=== PATIENT | male | born 1975 | race Two or more races ===

== ENCOUNTER 2023-04-14 11:35 | Outpatient (REF) | payer MEDICAID, SELFPAY ==
[2023-04-15 07:16] LABS: HIV AB/AG Nonreactive (Nonreactive); HIV Num 1 0.05 S/CO (0.00-0.99); ~HepC Num1 0.11 S/CO (0.00-0.79); ~Hepatitis C Antibody Nonreactive (Nonreactive)
[2023-04-16 09:13] LABS: RPR Rapid Plasma Reagin NON-REACTIVE (NON-REACTIVE)
== END 2023-04-14 11:36 | disposition home or self-care (01) ==
LOC: HO.HHCL 11:35
PROVIDERS: Visit Provider Internal Medicine
DX: E11.65 Type 2 diabetes mellitus with hyperglycemia (principal); F41.8 Other specified anxiety disorders
CPT/HCPCS: 36415; 80048; 85025; 86592; 86803; 87389

== ENCOUNTER 2023-04-15 09:39 | Outpatient (REF) | payer MEDICAID, SELFPAY ==
[2023-04-15 12:45] LABS: Creatinine Urine 317.39 mg/dL
[2023-04-15 13:18] LABS: CT PCR NOT DETECTED (Not Detect.); NG PCR NOT DETECTED (Not Detect.)
== END 2023-04-15 09:40 | disposition home or self-care (01) ==
LOC: HO.HHCL 09:39
PROVIDERS: Visit Provider Internal Medicine
DX: F41.8 Other specified anxiety disorders (principal); E11.65 Type 2 diabetes mellitus with hyperglycemia
CPT/HCPCS: 0353U; 82043; 82570

== ENCOUNTER 2024-07-09 12:14 | Outpatient (REF) | payer OTHER, SELFPAY ==
[2024-07-09 13:52] LABS: Creatinine Urine 143.39 mg/dL; Microalbum/Creatinine Ratio Ur 12.5 ug/mg cr (<30)
[2024-07-09 14:07] LABS: Alanine Aminotransferase 20 U/L (0-40); Albumin Level 4.4 g/dL (3.5-5.0); Alkaline Phosphatase 69 U/L (39-117); Anion Gap 11 (12-20); Aspartate Amino Transferase 20 U/L (5-37); Bilirubin Total 0.5 mg/dL (0.0-1.0); Blood Urea Nitrogen 11 mg/dL (9-16); Calcium 9.6 mg/dL (8.4-10.2); Carbon Dioxide 27 mmol/L (22-29); Chloride 102 mmol/L (96-108); Cholesterol 258 mg/dL (<200); Estimated Glomerular Filt Rate > 60; Glucose Random 208 mg/dL (60-115); HDL Cholesterol 37 mg/dL (>40); LDL Cholesterol Calculated 147 mg/dL (<100); Potassium 4.3 mmol/L (3.3-5.1); Sodium 136 mmol/L (135-145); Total Protein 7.6 g/dL (6.5-8.0); Triglycerides 371 mg/dL (<150)
--- OUTSIDE RECORDS SUMMARY | 2024-07-09 14:11 | XMS_ITS | Encounter Summary ---
Author Organization [employer] Address [address] [place] [address] [facility] [place] [address] Care Team Providers Care Roguer Name Role Phone Jade Laguerre MD Primary Care Provide r Reason for Referral * Medications - Closed Specialty Diagnoses / Procedures Referred By Yg hunter Referred To Contact Diagnoses Type 2 diabetes mellitus with hyperglycemia, without long-term current use of insulin ([facility]) Jade Laguerre MD [address] [place] [phone] Phone: tel: fax: Referral ID Status Reason Start Date Expiration Date Visits Re quested Visits Authorized [id number] Closed 1 1 * Consultation (Routine) - Pending Review Specialty Diagnoses / Procedures Referred By Yg hunter Referred To Contact Podiatry Diagnoses Type 2 diabetes mellitus with hyperglycemia, without long-term current use of insulin ([facility]) Jade Laguerre MD [address] [place] [id number] Phone: tel: fax: Referral ID Status Reason Start Date Expiration Date Visits Requested Visits Authorized [id number] Pending Review Specialty Services Required 07/09/2024 07/09/2025 1 1 * Consultation (Routine) - Authorized Specialty Diagnoses / Procedures Referred By Yg t Referred To Contact Optometry Diagnoses Type 2 diabetes mellitus with hyperglycemia, without long-term current use of insulin (CMS/HCC) Jade Laguerre MD [address] [place] [address] Phone: tel: fax: [facility] [address] [place] [address] Phone: tel: fax: Referral ID Status Reason Start Date Expiration Date Visits Requested Visits Authorized [id number] Authorized Consult and Treat 07/09/2024 07/09/2025 1 1 Reason for Visit * Reason Comments Diabetes Encounter Details Date Type Department Care Team ([facility] st Contact Info) Description 07/09/2024 11:15 AM EDT Office Visit [facility] [address] [place] [address] Jade Laguerre MD [address] [place] [address] Type 2 diabetes mellitus with hyperglycemia, without long-term current use of insulin (CMS/HCC) (Primary Dx); Insomnia, unspecified type; Dyslipidemia Social History Tobacco Use Types Packs/Day Years Used Date Smoking Tobacco: Never Smokeless Tobacco: Never Tobacco Cessation:Counseling Given: Not Answered Depression Answer Date Recorded Patient Health Questionnaire-9 Score 21 04/14/2023 Patient Health Questionnaire-9 Score 21 04/14/2023 Last PHQ-9: Questionnaire Data Not on file 0 04/14/2023 Housing Stability Answer Date Recorded What is your housing situation today? I do not have housing (Staying with others, in a hotel, in a jail, living outside on the street, on a beach, in a car, or in a park 07/01/[address] you li ve. Do you have problems with any of the following? None of the above 07/01/2024 Food Insecurity Answer Date Recorded Within the past 12 months, y ou worried that your food would run out before you got money to buy more: Never True 07/01/2024 Within the past 12 months,th e food you bought just didn't last and you didn't have enough money to get more: Never True Transportation Answer Date Recorded In the past 12 months, has l ack of transportation kept you from medical appts, meetings, work or from getting things needed for daily living? No 07/01/2024 Utilities Answer Date Recorded In the past 12 months, has t he electric, gas, oil or water company threatened to shut off services in your home? No 07/01/2024 Depression Answer Date Recorded Patient Health Questionnaire-2 Score 4 04/14/2023 Internet Access Answer Date Recorded Internet Access Q1 Yes 07/01/2024 Internet Access Q2 Not on file 07/01/2024 Sex and Gender Information Value Date Recorded Sex Assigned at Male 02/04/2022 10:39 AM EDT Legal Sex Male 10:39 AM EDT Gender Identity Male 02/04/2022 10:39 AM EDT Sexual Orientation Straight 02/04/2022 10 :39 AM EDT documented as of this encounter Last Filed Vital Signs Vital Sign Reading Time Taken Comments Blood Pressure 131/81 07/09/2024 11:43 AM EDT Pulse 76 07/09/2024 11:43 AM EDT Temperature 36.6 ??C (97.8 ??F) 07/09/2024 11:43 AM E DT Respiratory Rate 16 07/09/2024 11:43 AM EDT Oxygen Saturation 98% 07/09/2024 11:43 AM EDT Inhaled Oxygen Concentration - - Weight 107 kg (235 lb) 07/09/2024 11:43 AM EDT Height 181.6 cm (5' 11.5 ) 07/09/2024 11:43 AM E DT Body Mass Index 32.32 07/09/2024 11:43 AM EDT documented in this encounter Plan of Treatment Scheduled Referrals Name Type Priority Associated Diagnoses Orde r Schedule Referral to [facility] Outpatient Referral Routine Type 2 diabetes mellitus with hyperglycemia, without long-term current use of insulin ([facility]) Expected: 07/09/2024 (Approximate), Expires: 07/09/2025 Referral to Podiatry Outpatient Referral Routine Type 2 diabetes mellitus with hyperglycemia, without long-term current use of insulin ([facility]) Expected: 07/09/2024 (Approximate), Expires: 07/09/2025 documented as of this encounter Procedures Procedure Name Priority Date/Time Associated Diagnosis Comments ALBUMIN, RANDOM URINE W/CREATININE Routine 07/09/2024 12:20 PM EDT Type 2 diabetes mellitus with hyperglycemia, without long-term current use of insulin ([facility]) POCT GLYCATED HEMOGLOBIN, TOTAL Routine 07/09/2024 12:05 PM EDT Type 2 diabetes mellitus with hyperglycemia, without long-term current use of insulin ([facility]) POCT GLUCOSE Routine 07/09/2024 12:05 PM EDT Type 2 diabetes mellitus with hyperglycemia, without long-term current use of insulin ([facility]) LIPID PANEL, STANDARD Routine 07/09/2024 11:20 AM EDT Type 2 diabetes mellitus with hyperglycemia, without long-term current use of insulin ([facility]) COMPREHENSIVE METABOLIC PANEL Routine 07/09/2024 11:20 AM EDT Type 2 diabetes mellitus with hyperglycemia, without long-term current use of insulin ([facility]) documented in this encounter Results * Albumin, Random Urine W/Creatinine (07/09/2024 12:20 PM EDT) Creatinine, Urine 143.39 mg/dL [facility] Microalbumin Urine 18.0 mg/L [facility] Microalbum Creatinine Ratio Ur 12.5 <30 ug/mg cr [facility] Comment:Albumin/Creatinine R atio Reference Ranges: Normal: < 30 ug/mg creatinine Microalbuminuria: 30 - 300 ug/mg creatinineClinical Albuminuria: > 300 ug/mg creatinine Urine (Urine, Random) 07/09/2024 12:20 PM EDT 07/09/2024 1:03 PM EDT us Jade Gonzalez MD LAB URINE ORDERABLES Final Result [facility] [address] [place] [phone] * (ABNORMAL) POCT HGB A1C (07/09/2024 12:05 PM EDT) Hemoglobin A1C 10.8(A) 4.0 - 6.0 % QC Media Lot # [id number] Lot# Expiration Date Blood 07/09/2024 12:0 5 PM EDT Jade Gonzalez MD POINT OF CARE TEST EN TER/EDIT ORDERABLES Final Result * POCT Glucose (07/09/2024 12:05 PM EDT) Pathologist [facility] [place] Glucose Blood, POC 185 60 - 200 mg/dL QC Media Lot # [id number] Lot# Expiration Date Blood Capillary blood specimen / Unknown 07/09/2024 12:05 PM EDT Jade Gonzalez MD POINT OF CARE TEST EN TER/EDIT ORDERABLES Final Result * (ABNORMAL) Comprehensive Metabolic Panel (07/09/2024 11:20 AM EDT) Pathologist [facility] [place] Sodium 136 135 - 145 mmol/L [facility] Potassium 4.3 3.3 - 5.1 mmol/L [facility] Chloride 102 96 - 108 mmol/L [facility] Carbon Dioxide 27 22 - 29 mmol/L [facility] Anion Gap 11(L) 12 - 20 [facility] Urea Nitrogen (BUN) 11 9 - 16 mg/dL [facility] Creatinine, Serum 0.79 0.5 - 1.4 mg/dL [facility] Estimated Glomerular Filt Rate >60 [facility] Comment:Chronic Kidney Disea se: Estimated GFR < 60 mL/min/[id number] Kidney Disease: Estimated GFR < 15 mL/min/1.73m2 Glucose 208(H) 60 - 115 mg/dL [facility] Calcium 9.6 8.4 - 10.2 mg/dL [facility] Bilirubin, Total 0.5 0.0 - 1.0 mg/dL [facility] Aspartate Amino Transferase 20 5 - 37 U/L [facility] Alanine Aminotransferase 20 0 - 40 U/L [facility] Total Protein 7.6 6.5 - 8.0 g/dL [facility] Albumin Level 4.4 3.5 - 5.0 g/dL [facility] Alkaline Phosphatase 69 39 - 117 U/L [facility] Blood Venous blood specimen / Unknown 07/09/2024 11:20 AM EDT 07/09/2024 1:21 PM EDT us Jade Gonzalez MD LAB BLOOD ORDERABLES Final Result [facility] [address] [place] [phone] * (ABNORMAL) Lipid Panel, Standard (07/09/2024 11:20 AM EDT) Triglycerides 371(H) <150 mg/dL [facility] Comment:Desirable Triglyceri de: less than 150 mg/dLBorderline High Triglyceride 150-199 mg/dLHigh Triglyceride: 200-499 mg/dLVery High Triglyceride: greater than or equal to 5OO mg/dL Cholesterol 258(H) <200 mg/dL [facility] Comment:Desirable Cholestero l: less than 200 mg/dLBorderline High Cholesterol: 200-239 mg/dLHigh Cholesterol: greater than 239 mg/dL LDL Cholesterol Calculated 147(H) <100 mg/dL [facility] Comment:Desirable LDL: less than 100 mg/dLNear Optimal/Above Optimal LDL: 110- 129 mg/dLBorderline High LDL: 130-159 mg/dLHigh LDL: 160-189 mg/dLVery High LDL: greater than or equal to 190 mg/dL HDL Cholesterol 37(L) >40 mg/dL [facility] Comment:Desirable HDL: great er than 40 mg/dL Note: This HDL assay may give artificially low results in patients with liver disease. Blood Venous blood specimen / Unknown 07/09/2024 11:20 AM EDT 07/09/2024 1:21 PM EDT Jade Gonzalez MD LAB BLOOD ORDERABLES Final Result [facility] [address] [place] [phone] documented in this encounter Visit Diagnoses Diagnosis Type 2 diabetes mellitus with hyperglycemia, without long-term current use of insulin ([facility])- Primary Insomnia, unspecified type Dyslipidemia Other and unspecified hyperlipidemia documented in this encounter Additional Health Concerns Assessment Noted Time PHQ-9 Depression Total Score: 21 024 1:26 PM EST documented as of this encounter Care Teams Roguer Relationship Specialty Start Date End Date Jade Laguerre MD [address] [place] [phone] PCP - General Internal Medicine 05/27/24 documented as of this encounter
--- OUTSIDE RECORDS SUMMARY | 2024-07-09 14:11 | XMS_ITS | Encounter Summary ---
Author Organization [employer] Address [address] [place] [address] Care Team Providers Care Social Sciences Instructor Name Role Phone Jade Laguerre MD Primary Care Provide r Encounter Details Date Type Department Care Team (Latest Contact Info) Description 07/09/2024 Travel Social History Tobacco Use Types Packs/Day Years Used Date Smoking Tobacco: Never Smokeless Tobacco: Never Depression Answer Date Recorded Patient Health Questionnaire-9 Score 21 04/14/2023 Patient Health Questionnaire-9 Score 21 04/14/2023 Last PHQ-9: Questionnaire Data Not on file 0 04/14/2023 Housing Stability Answer Date Recorded What is your housing situation today? I do not have housing (Staying with others, in a hotel, in a [place] [facility], living outside on the street, on a [...] AM EDT documented as of this encounter Plan of Treatment Not on file documented as of this encounter Visit Diagnoses Not on filedocumented in this encounter Additional Health Concerns Assessment Noted Time PHQ-9 Depression Total Score: 21 024 1:26 PM EST documented as of this encounter Care Teams Social Sciences Instructor Relationship Specialty Start Date End Date Jade Laguerre MD [address] [place] [address] PCP - General Internal Medicine 05/27/24 documented as of this encounter
--- OUTSIDE RECORDS SUMMARY | 2024-07-09 14:12 | XMS_ITS | Clinical Summary ---
Author Organization [employer] Address [address] [place] [address] [address] [place] [address] Care Team Providers Care University Professor Name Role Phone Jade Laguerre MD Primary Care Provide r Allergies No known active allergies Medications * This document contains information received from the source organization and may not represent a complete record from that organization. emtricitabine-ten ofovir AF (Descovy) 200-25 MG tabletIndications :On pre-exposure prophylaxis for HIV Take 1 tablet by mouth in the morning. 30 tablet 2 03/27/20 23 Active gabapentin (Neurontin) 300 MG capsuleIndication s:Diabetic polyneuropathy associated with type 2 diabetes mellitus (CMS/HCC) Take 1 capsule (300 mg) by mouth 3 times daily. 90 capsule 11 04/14/19 24 Active traZODone (Desyrel) 100 MG tabletIndications :Mixed anxiety and depressive disorder TAKE 1 TABLET(100 MG) BY MOUTH AT BEDTIME 30 tablet 1 05/22/19 24 Active atorvastatin (Lipitor) 40 MG tabletIndications :Dyslipidemia Take 1 tablet (40 mg) by mouth Once per day. 90 tablet 07/10/19 25 Active gabapentin (Neurontin) 800 MG tabletIndications :Type 2 diabetes mellitus with hyperglycemia, without long-term current use of insulin (CMS/HCC) Take 1 tablet (800 mg) by mouth at bedtime. 30 tablet 2 07/10/19 25 026 Active metFORMIN (Glucophage) 1000 MG tabletIndications :Type 2 diabetes mellitus with hyperglycemia, without long-term current use of insulin (CMS/HCC) take 1 tablet by oral route 2 times every day with morning and evening meals 180 tablet 07/10/19 25 Active traZODone (Desyrel) 50 MG tabletIndications :Insomnia, unspecified type Take 1 tablet (50 mg) by mouth at bedtime. 30 tablet 2 07/10/19 25 025 Active Dulaglutide 0.75 MG/0.5ML solution auto-injectorIndi cations:Type 2 diabetes mellitus with hyperglycemia, without long-term current use of insulin (CMS/HCC) Inject 0.75 mg under the skin 1 (one) time per week. 2 mL 3 07/10/19 25 Active FREESTYLE LITE test stripIndications: Type 2 diabetes mellitus with hyperglycemia, without long-term current use of insulin (CMS/HCC) Use to test blood sugar 1 times daily 100 each 12 07/10/19 25 026 Active Lancets miscIndications:T ype 2 diabetes mellitus with hyperglycemia, without long-term current use of insulin (CMS/HCC) Use to test blood sugar 1 times daily 100 each 07/10/19 25 Active Alcohol Swabs 70 % padsIndications:T ype 2 diabetes mellitus with hyperglycemia, without long-term current use of insulin (CMS/HCC) Use to test blood sugar 1 times daily 100 each 07/10/19 25 Active Blood Glucose Monitoring Suppl (FreeStyle [place] Lite) w/Device kitIndications:Ty pe 2 diabetes mellitus with hyperglycemia, without long-term current use of insulin (CMS/HCC) Use to test blood sugar 1 times daily 1 kit 07/10/19 25 Active atorvastatin (Lipitor) 40 MG tablet Take 1 tablet (40 mg) by mouth in the morning. 90 tablet 07/04/19 23 025 Discontinued(Re order (will not trigger notification to Pharmacy)) metFORMIN (Glucophage) 1000 MG tabletIndications :Type 2 diabetes mellitus with hyperglycemia, without long-term current use of insulin (CMS/HCC) take 1 tablet by oral route 2 times every day with morning and evening meals 180 tablet 04/14/19 24 025 Discontinued(Re order (will not trigger notification to Pharmacy)) dulaglutide (Trulicity) 0.75 MG/0.5ML solution pen-injectorIndic ations:Type 2 diabetes mellitus with hyperglycemia, without long-term current use of insulin (CMS/HCC) Inject 0.75 mg under the skin 1 (one) time per week. 4 each 11 04/14/19 24 025 Discontinued(Re order (will not trigger notification to Pharmacy)) gabapentin (Neurontin) 800 MG tabletIndications :Type 2 diabetes mellitus with hyperglycemia, without long-term current use of insulin ([facility]) Take 1 tablet (800 mg) by mouth at bedtime. 30 tablet 2 07/10/19 25 025 Discontinued traZODone (Desyrel) 50 MG tabletIndications :Insomnia, unspecified type Take 1 tablet (50 mg) by mouth at bedtime. 30 tablet 2 07/10/19 25 025 Discontinued metFORMIN (Glucophage) 1000 MG tabletIndications :Type 2 diabetes mellitus with hyperglycemia, without long-term current use of insulin ([facility]) take 1 tablet by oral route 2 times every day with morning and evening meals 180 tablet 07/10/19 25 025 Discontinued atorvastatin (Lipitor) 40 MG tabletIndications :Dyslipidemia Take 1 tablet (40 mg) by mouth Once per day. 90 tablet 07/10/19 025 Discontinued Active Problems Problem Noted Date Diagnosed Date Dyslipidemia 07/09/2024 Colon cancer screening 04/14/2023 Pain in right testicle 04/14/2023 Assessment & Plan (04/14/2023 12:17 PM EST): US ordered after result I will refer him to urology Diabetic polyneuropathy asso ciated with type 2 diabetes mellitus 04/14/2023 Homeless 04/14/2023 Type 2 diabetes mellitus 08/12/2022 Assessment & Plan (04/14/2023 12:18 PM EST): - Lab Results Component Value Date HGBA1C 12.9 (A) 04/14/2023 HGBA1C 8.0 (H) 08/07/2021 - Lab Results Component Value Date MICROALBUR 1.3 08/07/2021 - - Diabetic eye exam:pending - Diabetic foot exam:pending - lifestyle modifications counseling - metfromin 1000mg BID and trulicity 0.75mg weekly Trigger middle finger of right hand 08/12/2022 Sebaceous cyst 08/12/2022 Mixed anxiety and depressive disorder 08/12/2022 Assessment & Plan (04/14/2023 12:19 PM EST): Counseling done I will start trazodone 100mg at bed time BHN called Chronic low back pain 08/12/2022 Insomnia 08/12/2022 Encounters Date Type Department Care Team Description 07/09/2024 11:15 AM EDT Office Visit [facility] [address] [place] [phone] Jade Laguerre MD Type 2 diabetes mellitus with hyperglycemia, without long-term current use of insulin ([facility]) (Primary Dx); Insomnia, unspecified type; Dyslipidemia 07/09/2024 Travel 07/01/2024 Patient Outreach [facility] [address] [place] [phone] Jade Laguerre MD Care Coordination (CHW outreach for SDOH housing search-referral completed ) 07/01/2024 Patient Outreach [facility] [address] [place] [phone] Jade Laguerre MD Pre-visit Planning (SDOH screening negative and tobacco screening negative) 06/18/2024 Population Health Risk Score [facility] () Department [address] [place] [phone] Provider, Population Health Generic from Last 3 Months Immunizations Name Administration Dates Next Due Influenza injectable quadrivalent preservative f ree 04/14/2023 Social History Tobacco Use Types Packs/Day Years [...] with others, in a hotel, in a alf, living outside on the street, on a [...] Orientation Straight 02/04/2022 10 :39 AM EDT Last Filed Vital Signs Vital Sign Reading [...] Mass Index 32.32 07/09/2024 11:43 AM EDT Plan of Treatment Health Maintenance Due Date Last Done Comments CT Colonography 1977 Colonoscopy 1977 Colorectal Cancer Screening 1977 FIT DNA/Cologuard 1977 FIT 1977 FOBT 1977 Sigmoidoscopy 1977 Diabetes: Foot Exam 09/25/1987 Eye Exam 09/25/1987 Alcohol/Substance Use Screening 1989 Family Planning (PISQ) 1992 Hepatitis B Vaccines (1 of 3 - 19+ 3-dose series) 1996 Pneumococcal Vaccine: Pediatrics (0 to 5 Years) and At-Risk Patients (6 to 49) Years) (1 of 2 - PCV) 1996 Lipid Panel 08/07/2022 07/09/2024, 08/07/2021 Depression Monitoring (PHQ-9) 10/13/2023, 04/14/2023 COVID-19 Vaccine (2 - 2023-2 5 season) 2023 04/08/2021 Influenza Vaccine (#1) 2023 , 01/02/2022, 04/08/2021 Depression Screening 04/14/2024 04/14/2023, 04/14/2023 Diabetes: Urine Protein Screening 04/15/2024 07/09/2024, 04/15/2023, 08/07/2021 Diabetes: Hemoglobin A1C 10/08/2024 025, 04/14/2023, 08/07/2021 SDOH Screening 07/01/2025 07/01/2024 Tobacco Screening 07/09/2025 07/09/2024 Zoster Vaccines (1 of 2) 09/25/2027 DTaP/Tdap/Td Vaccines (2 - T d or Tdap) 01/03/2032 01/02/2022 RSV Patients and Patients Aged 60 years or older (1 - 1-dose 75+ series) 2052 HIV Screening Completed 04/14/2023, 01/02/2022, 08/07/2021 Hepatitis C Screening Completed 04/14/2023 , 01/02/2022, 08/07/2021 HIB Vaccines Aged Out No longer eligi ble based on patient's age to complete this topic HPV Vaccines Aged Out No longer eligi ble based on patient's age to complete this topic Hepatitis A Vaccines Aged Out No long er eligible based on patient's age to complete this topic IPV Vaccines Aged Out No longer eligi ble based on patient's age to complete this topic Meningococcal Vaccine Aged Out No maureen shannan eligible based on patient's age to complete this topic RSV under 20 months Aged Out No longe r eligible based on patient's age to complete this topic Rotavirus Vaccines Aged Out No longer eligible based on patient's age to complete this topic Procedures Procedure Name Priority Date/Time Associated Diagnosis Comments ALBUMIN, RANDOM URINE W/CREATININE Routine 07/09/2024 12:20 PM EDT Type 2 diabetes mellitus with hyperglycemia, without long-term current use of insulin (CMS/HCC) POCT GLYCATED HEMOGLOBIN, TOTAL Routine 07/09/2024 12:05 PM EDT Type 2 diabetes mellitus with hyperglycemia, without long-term current use of insulin (CMS/HCC) POCT GLUCOSE Routine 07/09/2024 12:05 PM EDT Type 2 diabetes mellitus with hyperglycemia, without long-term current use of insulin (CMS/[facility]) COMPREHENSIVE METABOLIC PANEL Routine 07/09/2024 11:20 AM EDT Type 2 diabetes mellitus with hyperglycemia, without long-term current use of insulin ([facility]) LIPID PANEL, STANDARD Routine 07/09/2024 11:20 AM EDT Type 2 diabetes mellitus with hyperglycemia, without long-term current use of insulin ([facility]) HEPATITIS C AB W/REFL TO HCV RNA, QN, PCR Routine 04/14/2023 11:36 AM EST Mixed anxiety and depressive disorder HIV 1/2 ANTIGEN/ANTIBODY, FOURTH GENERATION W/RFL Routine 04/14/2023 11:36 AM EST Mixed anxiety and depressive disorder from Last 3 Months or Most Recently Relevant to Health Maintenance Results * Albumin, Random Urine W/Creatinine (07/09/2024 12:20 PM EDT) Creatinine, Urine 143.39 mg/dL [facility] Microalbumin Urine 18.0 mg/L [facility] Microalbum Creatinine Ratio Ur 12.5 <30 ug/mg cr [facility] Comment:Albumin/Creatinine R atio Reference Ranges: Normal: < 30 ug/mg creatinine Microalbuminuria: 30 - 300 ug/mg creatinineClinical Albuminuria: > 300 ug/mg creatinine Urine (Urine, Random) 07/09/2024 12:20 PM EDT 07/09/2024 1:03 PM EDT Jade Gonzalez MD LAB URINE ORDERABLES Final Result [facility] [address] [place] [phone] * (ABNORMAL) POCT HGB A1C (07/09/2024 12:05 PM EDT) Hemoglobin A1C 10.8(A) 4.0 - 6.0 % QC Media Lot # [id number] Lot# Expiration Date Blood 07/09/2024 12:0 5 PM EDT Jade Gonzalez MD POINT OF CARE TEST EN TER/EDIT ORDERABLES Final Result * POCT Glucose (07/09/2024 12:05 PM EDT) Glucose Blood, POC 185 60 - 200 mg/dL QC Media Lot # [id number] Lot# Expiration Date Blood Capillary blood specimen / Unknown 07/09/2024 12:05 PM EDT Jade Gonzalez MD POINT OF CARE TEST EN TER/EDIT ORDERABLES Final Result * (ABNORMAL) Lipid Panel, Standard (07/09/2024 11:20 AM EDT) Triglycerides 371(H) <150 mg/dL [facility] Comment:Desirable Triglyceri de: less than 150 mg/dLBorderline High Triglyceride 150-199 mg/dLHigh Triglyceride: 200-499 mg/dLVery High Triglyceride: greater than or equal to 5OO mg/dL Cholesterol 258(H) <200 mg/dL [facility] Comment:Desirable Cholestero l: less than 200 mg/dLBorderline High Cholesterol: 200-239 mg/dLHigh Cholesterol: greater than 239 mg/dL LDL Cholesterol Calculated 147(H) <100 mg/dL [facility] Comment:Desirable LDL: less than 100 mg/dLNear Optimal/Above Optimal LDL: 110- 129 mg/dLBorderline High LDL: 130-159 mg/dLHigh LDL: 160-189 mg/dLVery High LDL: greater than or equal to 190 mg/dL HDL Cholesterol 37(L) >40 mg/dL [facility] Comment:Desirable HDL: great er than 40 mg/dL Note: This HDL assay may give artificially low results in patients with liver disease. Blood Venous blood specimen / Unknown 07/09/2024 11:20 AM EDT 07/09/2024 1:21 PM EDT Jade Gonzalez MD LAB BLOOD ORDERABLES Final Result [facility] [address] [place] [phone] * (ABNORMAL) Comprehensive Metabolic Panel (07/09/2024 11:20 AM EDT) Sodium 136 135 - 145 mmol/L [facility] Potassium 4.3 3.3 - 5.1 mmol/L [facility] Chloride 102 96 - 108 mmol/L [facility] Carbon Dioxide 27 22 - 29 mmol/L [facility] Anion Gap 11(L) 12 - 20 [facility] Urea Nitrogen (BUN) 11 9 - 16 mg/dL [facility] Creatinine, Serum 0.79 0.5 - 1.4 mg/dL [facility] Estimated Glomerular Filt Rate >60 [facility] Comment:Chronic Kidney Disea se: Estimated GFR < 60 mL/min/[id number] Kidney Disease: Estimated GFR < 15 mL/min/1.73m2 Glucose 208(H) 60 - 115 mg/dL [facility] Calcium 9.6 8.4 - 10.2 mg/dL [facility] Bilirubin, Total 0.5 0.0 - 1.0 mg/dL [facility] Aspartate Amino Transferase 20 5 - 37 U/L [facility] Alanine Aminotransferase 20 0 - 40 U/L [facility] Total Protein 7.6 6.5 - 8.0 g/dL [facility] Albumin Level 4.4 3.5 - 5.0 g/dL [facility] Alkaline Phosphatase 69 39 - 117 U/L [facility] Blood Venous blood specimen / Unknown 07/09/2024 11:20 AM EDT 07/09/2024 1:21 PM EDT Jade Gonzalez MD LAB BLOOD ORDERABLES Final Result Performing Organization Address [facility] Co de Phone Number [facility] [address] [place] [phone] * Hepatitis C Antibody with Reflex to HCV, RNA, Quantitative, Real-Time PCR (04/14/2023 11:36 AM EST) Hepatitis C Antibody Nonreactive Nonreactive [facility] Comment:Antibodies to HCV no t detected; does not exclude early acuteHCV infection. Blood Venous blood specimen / Unknown 04/14/2023 11:36 AM EST 04/14/2023 1:34 PM EST us Jade Gonzalez MD LAB BLOOD ORDERABLES Final Result Performing Organization Address [facility] Co de Phone Number [facility] [address] [place] [phone] * HIV-1/2 Antigen and Antibodies, Fourth Generation, with Reflexes (04/14/2023 11:36 AM EST) HIV AB/AG Nonreactive Nonreactive [facility] Comment:HIV-1 p24 Ag and/or HIV-1/HIV-2 Ab not detected.A test result that is nonreactive does not exclude thepossibility of exposure to or infection with HIV-1 and/orHIV-2. Nonreactive results in this assay for individualswith prior exposure to HIV-1 and/or HIV-2 may be due toantigen and antibody levels that are below the limit ofdetection of this assay.The [employer] HIV Ag/Ab Combo assay result andsupplemental assay results should be interpreted inconjunction with the patient's clinical presentation,history and other laboratory results. If the results areinconsistent with clinical evidence, additional testing issuggested to confirm the result. Blood Venous blood specimen / Unknown 04/14/2023 11:36 AM EST 04/14/2023 1:34 PM EST us Jade Gonzalez MD LAB BLOOD ORDERABLES Final Result [facility] [address] [place] [phone] from Last 3 Months or Most Recently Relevant to Health Maintenance Insurance [facility] C3 [employer] Care Teams University Professor Relationship Specialty Start Date End Date Jade Laguerre MD [address] [place] [phone] PCP - General Internal Medicine 05/27/24
== END 2024-07-09 12:15 | disposition home or self-care (01) ==
LOC: HO.HHCL 12:14
PROVIDERS: Visit Provider Internal Medicine
DX: E11.65 Type 2 diabetes mellitus with hyperglycemia (principal)
CPT/HCPCS: 36415; 80053; 80061; 82043; 82570

== ENCOUNTER 2024-08-24 15:42 | Outpatient (REF) | payer OTHER, SELFPAY ==
--- NOTE | ~2024-08-24 | US_ITS ---
EXAMINATION: US SCROTUM HISTORY: PAIN RT TESTICLE. COMPARISON: There are no prior studies for comparison. FINDINGS: Real-time grayscale ultrasound imaging of the scrotum was performed. RIGHT TESTICLE: The right testis measures 4.4 x 2.5 x 3.0 cm and demonstrates normal homogeneous echotexture. No masses are seen. The right testis demonstrates normal color Doppler flow. RIGHT EPIDIDYMIS: Normal in size, shape, and vascularity. LEFT TESTICLE: The left testis measures 4.1 x 2.1 x 2.8 cm and demonstrates normal homogeneous echotexture. No masses are seen. The left testis demonstrates normal color Doppler flow. LEFT EPIDIDYMIS: Normal in size, shape, and vascularity. VARICOCELE: None. HYDROCELE: No significant hydrocele is seen. OTHER COMMENTS: None. US/US scrotum IMPRESSION: Unremarkable scrotal ultrasound. Electronically signed by: Barrett Toussaint MD 08/25/2024 07:14 AM EDT
--- OUTSIDE RECORDS SUMMARY | 2024-08-24 16:38 | XMS_ITS | Clinical Summary ---
Author Organization [employer] Address [address] [place] [address] 7[address] [place] [address] Care Team Providers Care Cosmetologist Apprentice Name Role Phone Jade Laguerre MD Primary Care Provide r Allergies No known active allergies Medications * This document contains information received from the source organization and may not represent a complete record from that organization. emtricitabine-tenof ovir AF (Descovy) 200-25 MG tabletIndications:O n pre-exposure prophylaxis for HIV Take 1 tablet by mouth in the morning. 30 tablet 2 3 Active gabapentin (Neurontin) 300 MG capsuleIndications: Diabetic polyneuropathy associated with type 2 diabetes mellitus (CMS/HCC) Take 1 capsule (300 mg) by mouth 3 times daily. 90 capsule 11 4 Active traZODone (Desyrel) 100 MG tabletIndications:M ixed anxiety and depressive disorder TAKE 1 TABLET(100 MG) BY MOUTH AT BEDTIME 30 tablet 1 4 Active atorvastatin (Lipitor) 40 MG tabletIndications:D yslipidemia Take 1 tablet (40 mg) by mouth Once per day. 90 tablet 5 Active gabapentin (Neurontin) 800 MG tabletIndications:T ype 2 diabetes mellitus with hyperglycemia, without long-term current use of insulin (CMS/HCC) Take 1 tablet (800 mg) by mouth at bedtime. 30 tablet 2 5 07/10/19 26 Active metFORMIN (Glucophage) 1000 MG tabletIndications:T ype 2 diabetes mellitus with hyperglycemia, without long-term current use of insulin (CMS/HCC) take 1 tablet by oral route 2 times every day with morning and evening meals 180 tablet 5 Active traZODone (Desyrel) 50 MG tabletIndications:I nsomnia, unspecified type Take 1 tablet (50 mg) by mouth at bedtime. 30 tablet 2 5 10/08/19 25 Active Dulaglutide 0.75 MG/0.5ML solution auto-injectorIndica tions:Type 2 diabetes mellitus with hyperglycemia, without long-term current use of insulin (CMS/[facility]) Inject 0.75 mg under the skin 1 (one) time per week. 2 mL 3 5 Active FREESTYLE LITE test stripIndications:Ty pe 2 diabetes mellitus with hyperglycemia, without long-term current use of insulin (CMS/HCC) Use to test blood sugar 1 times daily 100 each 12 5 07/10/19 26 Active Lancets miscIndications:Typ e 2 diabetes mellitus with hyperglycemia, without long-term current use of insulin (CMS/HCC) Use to test blood sugar 1 times daily 100 each 5 Active Alcohol Swabs 70 % padsIndications:Typ e 2 diabetes mellitus with hyperglycemia, without long-term current use of insulin (CMS/HCC) Use to test blood sugar 1 times daily 100 each 5 Active Blood Glucose Monitoring Suppl (FreeStyle Leota Lite) w/Device kitIndications:Type 2 diabetes mellitus with hyperglycemia, without long-term current use of insulin (CMS/HCC) Use to test blood sugar 1 times daily 1 kit 5 Active FREESTYLE LITE test stripIndications:Ty pe 2 diabetes mellitus with hyperglycemia, without long-term current use of insulin (CMS/HCC) Use to test blood sugar 1 times daily 100 each 12 5 07/22/19 26 Active Lancets miscIndications:Typ e 2 diabetes mellitus with hyperglycemia, without long-term current use of insulin (CMS/HCC) Use to test blood sugar 1 times daily 100 each 5 Active Alcohol Swabs 70 % padsIndications:Typ e 2 diabetes mellitus with hyperglycemia, without long-term current use of insulin (CMS/HCC) Use to test blood sugar 2 times daily 100 each 5 Active Blood Glucose Monitoring Suppl (FreeStyle Leota Lite) w/Device kitIndications:Type 2 diabetes mellitus with hyperglycemia, without long-term current use of insulin ([facility]) Use to test blood sugar 2 times daily 1 kit Active Active Problems Problem Noted Date Diagnosed Date Dyslipidemia 07/09/2024 Colon cancer screening 04/14/2023 Pain in right testicle 04/14/2023 Assessment & Plan (04/14/2023 12:17 PM EST): US ordered after result I will refer him to urology Diabetic polyneuropathy asso ciated with type 2 diabetes mellitus 04/14/2023 Homeless 04/14/2023 Type 2 diabetes mellitus 08/12/2022 Assessment & Plan (07/09/2024 2:16 PM EDT): Diabetes is: not controlled - Lab Results Component Value Date HGBA1C 10.8 (A) 07/09/2024 HGBA1C 12.9 (A) 04/14/2023 HGBA1C 8.0 (H) 08/07/2021 - Lab Results Component Value Date MICROALBUR 18.0 07/09/2024 CREATININE 0.79 07/09/2024 -Changes: I will prescribe again his metformin 1000 mg twice a day and I restarted patient on Trulicity 0.75 mg weekly - Diabetic eye exam: Referral done today - Diabetic foot exam: Referral done today - Continue lifestyle modifications I will prescribe for patient glucometer with supplies he tells me he does not have anything to check his glucose - Follow up: 3 months Assessment & Plan (04/14/2023 12:18 PM EST): [...] Chronic low back pain 08/12/2022 Insomnia 08/12/2022 Assessment & Plan (07/09/2024 2:15 PM EDT): Sleep hygiene counseling done I will restart patient on trazodone 50 mg at bedtime Encounters Date Type Department Care Team Description 08/06/2024 Telephone [facility] [address] [place], [place] [phone] Jade Laguerre MD [place] 07/28/2024 6:20 PM EDT Office Visit [facility] [address] [place] [address] [phone] Jameson Ordoñez MD SOB (shortness of breath) (Primary Dx) 07/21/2024 Orders Only [facility] [address] [place] [address] [phone] Jade Laguerre MD Type 2 diabetes mellitus with hyperglycemia, without long-term current use of insulin (CMS/HCC) (Primary Dx) 07/09/2024 11:15 AM EDT Office Visit [address] [phone] Jade Laguerre MD Type 2 diabetes mellitus with hyperglycemia, without long-term current use of insulin (CMS/HCC) (Primary Dx); Insomnia, unspecified type; Dyslipidemia 07/09/2024 Travel 07/01/2024 Patient Outreach [facility] [address] [place] [address] [phone] Jade Laguerre MD Care Coordination (CH[facility] outreach for SDOH housing search-referral completed ) 07/01/2024 Patient Outreach [address] [phone] Jade Laguerre MD Pre-visit Planning (SDOH screening negative and tobacco screening negative) 06/18/2024 Population Health Risk Score Community [facility] () Department [address] [place] [phone] Provider, Population Health Generic from Last 3 Months Immunizations Immunization Administration Dates Next Due Influenza injectable quadrivalent [...] Sign Reading Time Taken Comments Blood Pressure 119/75 07/28/2024 5:15 PM EDT Pulse 75 07/28/2024 5:15 PM EDT Temperature 36.3 ??C (97.4 ??F) 07/28/2024 5:15 PM ED T Respiratory Rate 18 07/28/2024 5:15 PM EDT Oxygen Saturation 97% 07/28/2024 5:15 PM EDT RA Inhaled Oxygen Concentration - - Weight 107 kg (235 lb) 07/09/2024 11:43 AM EDT Height 181.6 cm (5' 11.5 ) 07/09/2024 11:43 AM E DT Body Mass Index 32.32 07/09/2024 11:43 AM EDT Plan of Treatment Upcoming Encounters Date Type Department Care Team (Late st Contact Info) Description 10/11/2024 9:45 AM EDT Office Visit [facility] [address] [place] [address] Jade Laguerre MD [address] [place] [address] 10/15/2024 2:30 PM EDT Office Visit [facility] [address] [place] [address] Eleonora Gaviria, OD [address] [place] [address] Health Maintenance Due Date Last Done Comments CT Colonography 1977 Colonoscopy 1977 Colorectal Cancer Screening 1977 FIT DNA/Cologuard 1977 FIT 1977 FOBT 1977 Sigmoidoscopy 1977 Disability Screening 1977 Diabetes: Foot Exam 09/25/1987 Eye Exam 09/25/1987 Alcohol/Substance Use Screening 1989 Family Planning (PISQ) 1992 Hepatitis B Vaccines (1 of 3 - 19+ 3-dose series) 1996 Pneumococcal Vaccine: Pediatrics (0 to 5 Years) and At-Risk Patients (6 to 49) Years) (1 of 2 - PCV) 1996 COVID-19 Vaccine (2 - 2023-2 5 season) 2023 04/08/2021 Influenza Vaccine (#1) 2023 , 01/02/2022, 04/08/2021 Depression Screening 04/14/2024 04/14/2023, 04/14/2023 Diabetes: Hemoglobin A1C 10/08/2024 025, 04/14/2023, 08/07/2021 SDOH Screening 07/01/2025 07/01/2024 Diabetes: Urine Protein Screening 07/09/2025 07/09/2024, 04/15/2023, 08/07/2021 Lipid Panel 07/09/2025 07/09/2024, 08/07/2021 Tobacco Screening 07/09/2025 07/09/2024 Zoster Vaccines (1 [...] patient's age to complete this topic Meningococcal B Vaccine Aged Out No l onger eligible based on patient's age to complete [...] hyperglycemia, without long-term current use of insulin ([facility]) POCT GLYCATED HEMOGLOBIN, TOTAL Routine 07/09/2024 12:05 PM EDT Type 2 diabetes mellitus with hyperglycemia, without long-term current use of insulin ([facility]/HCC) POCT GLUCOSE Routine 07/09/2024 12:05 PM EDT Type 2 diabetes mellitus with hyperglycemia, without long-term current use of insulin ([facility]) COMPREHENSIVE METABOLIC PANEL Routine 07/09/2024 11:20 AM EDT Type 2 diabetes mellitus with hyperglycemia, without long-term current use of insulin ([facility]) LIPID PANEL, STANDARD Routine 07/09/2024 11:20 AM EDT Type 2 diabetes mellitus with hyperglycemia, without long-term current use of insulin ([facility]) HEPATITIS C AB W/REFL TO HCV RNA, QN, PCR Routine 04/14/2023 11:36 AM EST Mixed anxiety and depressive disorder HIV 1/2 ANTIGEN/ANTIBODY, FOURTH GENERATION W/RFL Routine 04/14/2023 11:36 AM EST Mixed anxiety and depressive disorder from Last 3 Months or Most Recently Relevant to Health Maintenance Results * Albumin, Random Urine W/Creatinine (07/09/2024 12:20 PM EDT) Creatinine, Urine 143.39 mg/dL [facility] Microalbumin Urine 18.0 mg/L [facility] Microalbum Creatinine Ratio Ur 12.5 <30 ug/mg cr [facility] Comment:Albumin/Creatinine R atio Reference Ranges: Normal: < 30 ug/mg creatinine Microalbuminuria: 30 - 300 ug/mg creatinineClinical Albuminuria: > 300 ug/mg creatinine Urine (Urine, Random) 07/09/2024 12:20 PM EDT 07/09/2024 1:03 PM EDT us Jade Gonzalez MD LAB URINE ORDERABLES Final Result [facility] [address] [place] [phone] * (ABNORMAL) POCT HGB A1C (07/09/2024 [...] 11:20 AM EDT) Triglycerides 371(H) <150 mg/dL [facility] Comment:Desirable Triglyceri de: less than 150 mg/dLBorderline High Triglyceride 150-199 mg/dLHigh Triglyceride: 200-499 mg/dLVery High Triglyceride: greater than or equal to 5OO mg/dL Cholesterol 258(H) <200 mg/dL [facility] Comment:Desirable Cholestero l: less than 200 mg/dLBorderline High Cholesterol: 200-239 mg/dLHigh Cholesterol: greater than 239 mg/dL LDL Cholesterol Calculated 147(H) <100 mg/dL [facility] Comment:Desirable LDL: less than 100 mg/dLNear Optimal/Above Optimal LDL: 110- 129 mg/dLBorderline High LDL: 130-159 mg/dLHigh LDL: 160-189 mg/dLVery High LDL: greater than or equal to 190 mg/dL HDL Cholesterol 37(L) >40 mg/dL [facility] Comment:Desirable HDL: great er than 40 mg/dL Note: This HDL assay may give artificially low results in patients with liver disease. Blood Venous blood specimen / Unknown 07/09/2024 11:20 AM EDT 07/09/2024 1:21 PM EDT us Jade Gonzalez MD LAB BLOOD ORDERABLES Final Result [facility] [address] [place] [phone] * (ABNORMAL) Comprehensive Metabolic Panel (07/09/2024 11:20 AM EDT) Sodium 136 135 - 145 mmol/L [facility] Potassium 4.3 3.3 - 5.1 mmol/L [facility] Chloride 102 96 - 108 mmol/L [facility] Carbon Dioxide 27 22 - 29 mmol/L [facility] Anion Gap 11(L) 12 - 20 [facility] Urea Nitrogen (BUN) 11 9 - 16 mg/dL [facility] Creatinine, Serum 0.79 0.5 - 1.4 mg/dL [facility] Estimated Glomerular Filt Rate >60 [facility] Comment:Chronic Kidney Disea se: Estimated GFR < 60 mL/min/[id number] Kidney Disease: Estimated GFR < 15 mL/min/1.73m2 Glucose 208(H) 60 - 115 mg/dL [facility] Calcium 9.6 8.4 - 10.2 mg/dL [facility] Bilirubin, Total 0.5 0.0 - 1.0 mg/dL [facility] Aspartate Amino Transferase 20 5 - 37 U/L [facility] Alanine Aminotransferase 20 0 - 40 U/L [facility] Total Protein 7.6 6.5 - 8.0 g/dL [facility] Albumin Level 4.4 3.5 - 5.0 g/dL [facility] Alkaline Phosphatase 69 39 - 117 U/L [facility] Blood Venous blood specimen / Unknown 07/09/2024 11:20 AM EDT 07/09/2024 1:21 PM EDT Jade Gonzalez MD LAB BLOOD ORDERABLES Final Result Performing Organization Address [facility] Co de Phone Number [facility] [address] [place] [phone] * Hepatitis C Antibody with Reflex to HCV, RNA, Quantitative, Real-Time PCR (04/14/2023 11:36 AM EST) Hepatitis C Antibody Nonreactive Nonreactive [facility] Comment:Antibodies to HCV no t detected; does not exclude early acuteHCV infection. Blood Venous blood specimen / Unknown 04/14/2023 11:36 AM EST 04/14/2023 1:34 PM EST Jade Gonzalez MD LAB BLOOD ORDERABLES Final Result Performing Organization Address [facility] de Phone Number [facility] [address] [place] [phone] * HIV-1/2 Antigen and Antibodies, Fourth Generation, with Reflexes (04/14/2023 11:36 AM EST) Pathologist [facility] HIV AB/AG Nonreactive Nonreactive [facility] Comment:HIV-1 p24 Ag and/or HIV-1/HIV-2 Ab not detected.A test result that is nonreactive does not exclude thepossibility of exposure to or infection with HIV-1 and/orHIV-2. Nonreactive results in this assay for individualswith prior exposure to HIV-1 and/or HIV-2 may be due toantigen and antibody levels that are below the limit ofdetection of this assay.The [facility] HIV Ag/Ab Combo assay result andsupplemental assay results should be interpreted inconjunction with the patient's clinical presentation,history and other laboratory results. If the results areinconsistent with clinical evidence, additional testing issuggested to confirm the result. Blood Venous blood specimen / Unknown 04/14/2023 11:36 AM EST 04/14/2023 1:34 PM EST us Jade Gonzalez MD LAB BLOOD ORDERABLES Final Result [facility] [address] [place] [phone] from Last 3 Months or Most Recently Relevant to Health Maintenance Insurance [facility] C3 [employer] Care Teams Cosmetologist Apprentice Relationship Specialty Start Date End Date Jade Laguerre MD [address] [place] [phone] PCP - General Internal Medicine 05/27/24
--- OUTSIDE RECORDS SUMMARY | 2024-08-24 16:38 | XMS_ITS | Clinical Summary ---
Author Organization [address] [facility] Address [address] [place] [address] Phone Care Team Providers Care Vacuum Pan Operator Name Role Phone Jade Laguerre MD Primary Care Provide r Medical History Medical History Date Comments Type 2 diabetes mellitus wit h diabetic neuropathy (CMS/HCC V24, CMS/HCC V28) DX:Type 2 diabet es mellitus with diabetic neuropathy (HCC) Anxiety and depression DX:Anxiet y and depression Insomnia DX:Insomnia Obesity DX:Obesity Social History Tobacco Use Types Packs/Day Years Used Date Smoking Tobacco: Never Smokeless Tobacco: Never Alcohol Use Standard Drinks/Week Comments Yes 0 (1 standard drink = 0.6 oz pur e alcohol) Sex and Gender Information Value Date Recorded Sex Assigned at Not on file Legal Sex Male 6:15 PM EST Gender Identity Not on file Sexual Orientation Not on file Obstetrics History Last Filed Vital Signs Vital Sign Reading Time Taken Comments Blood Pressure - - Pulse - - Temperature - - Respiratory Rate - - Oxygen Saturation - - Inhaled Oxygen Concentration - - Weight 104 kg (230 lb) 07/01/2022 1:05 PM EDT Height 181.6 cm (5' 11.5 ) 07/01/2022 1:05 PM ED T Body Mass Index 31.63 07/01/2022 1:05 PM EDT Plan of Treatment Upcoming Encounters Date Type Department Care Team (Late st Contact Info) Description 11/09/2024 1:15 PM EDT Consult Orthopedic Surgery - [place] [address] [phone] Roney Turcios DPM [address] [phone] Health Maintenance Due Date Last Done Comments Diabetes: Annual GFR (Glomer ular Filtration Rate) 1977 Diabetes: Annual Foot Exam 09/25/1987 Diabetes: Annual Retina Eye Exam 09/25/1987 DTaP,Tdap,and Td Vaccines (1 - Tdap) 1996 Hepatitis B Vaccines (1 of 3 - 19+ 3-dose series) 1996 Pneumococcal Vaccine: Pediat rics (0 to 5 Years) and At-Risk Patients (6 to 64 Years) (1 of 2 - PCV) 1996 Cholesterol Screening (Lipid Panel) 03/17/2022 Colorectal Cancer Screening: Colonoscopy 03/17/2022 Depression Screening 03/17/2022 HIV Screening 03/17/2022 Hepatitis C Screening 03/17/2022 Social Influencers of Health Screening 03/17/2022 COVID-19 Vaccine (2 - 2023-2 5 season) 2023 04/08/2021 Diabetes: Annual Urine Albumin-Creatinine Ratio (uACR) 08/07/2024 Diabetes: Blood Sugar Contro l Test (HGBA1C) 08/07/2024 Influenza Vaccine (Season Ended) 2024 04/08/19 22 HIB Vaccines Aged Out No longer eligi [...] on patient's age to complete this topic MMR Vaccines Aged Out No longer eligi ble based on patient's age to complete this topic Meningococcal ACWY Vaccine Aged Out N o longer eligible based on patient's age to complete this topic Meningococcal B Vaccine Aged Out No l onger eligible based on patient's age to complete this topic RSV Immunization Patients Un carleen 20 months Aged Out No longer eligible b ased on patient's age to complete this topic Varicella Vaccines Aged Out No longer eligible based on patient's age to complete this topic Insurance [place] - [place] [facility] Care Teams Vacuum Pan Operator Relationship Specialty Start Date End Date Jade Laguerre MD [address] [phone] PCP - General Internal Medicine 10/18/21
== END 2024-08-24 15:43 | disposition home or self-care (01) ==
LOC: HO.US 15:42
PROVIDERS: PCP Internal Medicine; Visit Provider Internal Medicine
DX: N50.811 Right testicular pain (principal)
CPT/HCPCS: 76870

== ENCOUNTER → 2024-08-24 15:44 | Outpatient (BNV) | payer OTHER, SELFPAY | PROVIDERS: PCP Internal Medicine; Visit Provider Radiology Diagnostic Radiology | DX: N50.811 Right testicular pain (principal) | CPT/HCPCS: 76870 ==

== ENCOUNTER 2024-09-07 17:41 | Emergency (ER) | payer OTHER, SELFPAY ==
--- NOTE | 2024-09-07 17:43 | ECG_ITS ---
Test Reason : CHEST PRESSURE Blood Pressure : */* mmHG Vent. Rate : 81 BPM Atrial Rate : 81 BPM P-R Int : 154 ms QRS Dur : 98 ms QT Int : 372 ms P-R-T Axes : 49 32 27 degrees QTcB Int : 432 ms Normal sinus rhythm Normal ECG No previous ECGs available Referred By: Gilberto Griffin Electronically Signed By: CHELLE CARDOZO
[2024-09-07 18:00] VITALS: BP 124/71; PULSE 81; RESP 18; TEMP 36.6; O2SAT 97; BMI 32.5
--- NOTE | 2024-09-07 18:00 | ED_ITS ---
HPI - General Adult General Chief complaint: Chest Pain Stated complaint: Chest pressure Time Seen by Provider: 09/07/24 22:30 History of Present Illness ED Provider: Kimmy MARLEY narrative: The patient is a 48-year-old male with a history of type 2 diabetes on metformin who has been concerned about his health for the last couple of months. He says that he has been having intermittent episodes of chest press He was concerned about these symptoms sufficiently that he stopped smoking. He also try to increase his exercise regimen. He denies any exertional chest pain. He says that His symptoms were worse today. He woke up with a sense of pressure in his lower chest or in the region of the stomach. He felt that he had reflux last night. He came to the emergency room today because his symptoms were somewhat worse today And last night. No history of early coronary disease in his family. Related Data Previous Rx's ?Medication ?Instructions ?Recorded omeprazole 40 mg capsule,delayed 40 mg PO DAILY #30 caps 09/07/24 release Allergies Allergy/AdvReac Type Severity Reaction Status Date / Time Penicillins Allergy Intermediate Hives Verified 09/07/24 18:04 Review of Systems 2 Review of Systems: Yes all other systems are reviewed and are negative [facility] Social History Social History Alcohol intake: former Smoked in Last 30 Days: No Use of substances other than those prescribed or required for medical reasons: No Advance Directives: No Advance Directives Information Provided: No Physical Exam ED Vital Signs: Vital Signs - 24 hr 09/07/24 18:00 09/07/24 19:24 09/07/24 20:58 Temperature 97.8 F 98.4 F 98.1 F Pulse Rate 81 78 74 Respiratory Rate 18 18 14 Blood Pressure 124/71 123/77 125/79 Pulse Oximetry 97 99 99 Oxygen Delivery Method Room Air Room Air Room Air 09/07/24 22:38 09/07/24 22:56 Temperature 98.1 F Pulse Rate 76 76 Respiratory Rate 14 14 Blood Pressure 132/85 132/85 Pulse Oximetry 100 100 Oxygen Delivery Method Room Air Room Air BMI result Body Mass Index 32.5 Const Other: The patient is awake, alert, pleasant, cooperative, he does not appear in acute distress. Orientation/consciousness: patient oriented x3 HENMT Other: Face is symmetrical, mucous membranes moist Eyes General: appearance normal, both eyes and all related structures Neck Neck: Yes normal visual inspection, Yes full ROM and Yes no JVD Resp Effort & Inspection: normal respiratory effort Auscultation: clear to auscultation bilaterally Cardio Rate: regular rate Rhythm: regular rhythm Heart sounds: S1 normal heart sound present and S2 normal heart sound present GI Other: abdomen is soft and nontender Skin General skin exam: no rashes or lesions noted Neuro General: patient oriented x3, tone normal, moves all extremities, no focal motor deficits and CN's II-XI intact bilaterally Extrem Other: no calf swelling or tenderness, no peripheral edema, no asymmetry, Course Course Course Narrative: RME, this is a rapid medical exam performed by Kin Griffin please refer to primary provider for complete H&P- 48-year-old male past medical history significant for diabetes presents for evaluation of chest pressure and fatigue. Plan for cardiac workup. Medical Decision Making Medical Decision Making [facility] Narrative: The patient is a 48-year-old male who describes episodes of intermittent chest pain over the last several weeks. Symptoms were somewhat worse today and he decided to come to the emergency room. He has an undetectable troponin. EKG is unremarkable. His symptoms seemed to be related to eating and are also somewhat diurnal. They are not worsened by exertion. He has no right upper quadrant tenderness. I suspect that this might be some kind of a gastritis type syndrome. He will be started on omeprazole and should follow up with his PCP. Lab Data 09/07/24 18:25 09/07/24 18:25 Labs: Lab Results 09/07/24 Range/Units 18:25 WBC 9.8 (4.8-10.8) X10*3/uL RBC 4.87 (4.60-5.80) X10*6/uL Hgb 14.1 (14.0-18.0) g/dl Hct 40.2 L (42.0-52.0) % MCV 82.5 (80.0-98.0) fL MCH 29.0 (27.0-33.0) pg MCHC 35.1 (31.0-36.0) g/dl RDW 12.0 (11.0-16.0) % Plt Count 267 (160-400) X10*3/uL MPV 10.2 (9.4-12.4) fL Immature Gran % (Auto) 0.3 (0.0-0.4) % Neut % (Auto) 57.1 (45-73) % Lymph % (Auto) 30.7 (20-40) % Caswell % (Auto) 7.3 (2-11) % Eos % (Auto) 3.9 (0-4) % Baso % (Auto) 0.7 (0-2) % Lymph # (Auto) 3.0 (1.2-4.9) X10*3/uL Caswell # (Auto) 0.7 (0.1-1.2) X10*3/uL Eos # (Auto) 0.4 (0.0-0.4) X10*3/uL Baso # (Auto) 0.1 (0.0-0.2) X10*3/uL Abs Immat Gran (auto) 0.03 (0.00-0.03) X10*3/uL Absolute Neuts (auto) 5.6 (2.0-8.3) x10*3/uL Absolute Nucleated RBC 0.000 (0.0-0.012) X10*3/uL Nucleated RBC % (auto) 0.0 (0.0-0.2) /100WBC Sodium 135 (135-145) mmol/L Potassium 4.3 (3.3-5.1) mmol/L Chloride 98 (96-108) mmol/L Carbon Dioxide 30 H (22-29) mmol/L Anion Gap 11 L (12-20) BUN 11 (9-16) mg/dL Creatinine 1.02 (0.5-1.4) mg/dL Estim Creat Clear Calc 111.8 Estimated GFR > 60 Random Glucose 282 H (60-115) mg/dL Calcium 9.3 (8.4-10.2) mg/dL Magnesium 1.9 (1.6-2.6) mg/dL Total Bilirubin 0.5 (0.0-1.0) mg/dL AST 22 (5-37) U/L ALT 23 (0-40) U/L Alkaline Phosphatase 79 (39-117) U/L Troponin I High Sens < 2.7 (<3.5-35.0) ng/L Total Protein 7.6 (6.5-8.0) g/dL Albumin 4.5 (3.5-5.0) g/dL Lipase 21 (8-78) U/L TSH 1.88 (0.32-4.0) uIU/mL Influenza Type A (PCR) NEGATIVE (Negative) Influenza Type B (PCR) NEGATIVE (Negative) RSV RNA Qual (PCR) NEGATIVE (Negative) SARS-CoV-2 RNA (RT-PCR) NEGATIVE (Negative) Independent Interpretation I performed an independent interpretation of an: EKG Interpretation: EKG at 17:42 shows normal sinus rhythm at 81 beats per minute. It is an unremarkable EKG. Discharge Plan Discharge Clinical Impression: Chest pain Patient Disposition: Home, Self-Care Additional Instructions: I think your chest symptoms are probably more likely related to your stomach then to your heart. Your EKG and your blood tests regarding your heart today are reassuring. Please continue to refrain from using cigarettes. Please continue to increase any exercise regimens you may have started. I have sent a prescription for a medication called omeprazole to your pharmacy. This medication reduce his stomach acid. My hope is this will help the symptoms you has been having. Please contact your regular doctor's office in the morning to make a prompt follow up appointment to discuss these symptoms further. If at any point you feel significantly worse please return to the emergency department. Prescriptions: New omeprazole 40 mg capsule,delayed release(DR/EC) 40 mg PO DAILY Qty: 30 0RF Referrals: Jade Laguerre MD [Primary Care Provider] - Interventions: ED Discharge Assessment Last Done: 09/07/24 22:56 Discharge Date/Time: 09/07/24 22:57 Print Language: Maldivian
[2024-09-07 18:31] LABS: MANUAL DIFF FLAG NO
[2024-09-07 18:34] LABS: Basophils Absolute Auto 0.1 X10*3/uL (0.0-0.2); Basophils Percent Auto 0.7 % (0-2); Eosinophils Absolute Auto 0.4 X10*3/uL (0.0-0.4); Eosinophils Percent Auto 3.9 % (0-4); Hematocrit 40.2 % (42.0-52.0); Hemoglobin 14.1 g/dl (14.0-18.0); Imm Gran Abs Auto 0.03 X10*3/uL (0.00-0.03); Imm Gran Pct Auto 0.3 % (0.0-0.4); Lymphocytes Percent Auto 30.7 % (20-40); Mean Corpuscular HGB Conc 35.1 g/dl (31.0-36.0); Mean Corpuscular Volume 82.5 fL (80.0-98.0); Mean Platelet Volume 10.2 fL (9.4-12.4); Monocytes Absolute Auto 0.7 X10*3/uL (0.1-1.2); Monocytes Percent Auto 7.3 % (2-11); Neutrophils Absolute Auto 5.6 x10*3/uL (2.0-8.3); Neutrophils Percent Auto 57.1 % (45-73); Platelet Count 267 X10*3/uL (160-400); Red Blood Count 4.87 X10*6/uL (4.60-5.80); White Blood Count 9.8 X10*3/uL (4.8-10.8)
[2024-09-07 18:53] LABS: Alanine Aminotransferase 23 U/L (0-40); Albumin Level 4.5 g/dL (3.5-5.0); Alkaline Phosphatase 79 U/L (39-117); Anion Gap 11 (12-20); Aspartate Amino Transferase 22 U/L (5-37); Bilirubin Total 0.5 mg/dL (0.0-1.0); Blood Urea Nitrogen 11 mg/dL (9-16); Calcium 9.3 mg/dL (8.4-10.2); Carbon Dioxide 30 mmol/L (22-29); Chloride 98 mmol/L (96-108); Creatinine Clr Calc Pharmacy 111.8; Estimated Glomerular Filt Rate > 60; Glucose Random 282 mg/dL (60-115); Lipase 21 U/L (8-78); Magnesium 1.9 mg/dL (1.6-2.6); Potassium 4.3 mmol/L (3.3-5.1); Sodium 135 mmol/L (135-145); Total Protein 7.6 g/dL (6.5-8.0)
[2024-09-07 18:55] LABS: Troponin-I High Sensitivity < 2.7 ng/L (<3.5-35.0)
[2024-09-07 19:08] LABS: TSH reflex Free T4 1.88 uIU/mL (0.32-4.0)
[2024-09-07 19:09] LABS: Influenza A PCR NEGATIVE (Negative); Influenza B PCR NEGATIVE (Negative); Resp Syncy Virus RNA Qual PCR NEGATIVE (Negative); SARS COV2 PCR INHOUSE NEGATIVE (Negative)
[2024-09-07 19:24] VITALS: BP 123/77; PULSE 78; RESP 18; TEMP 36.9; O2SAT 99
[2024-09-07 20:58] VITALS: BP 125/79; PULSE 74; RESP 14; TEMP 36.7; O2SAT 99
[2024-09-07 22:38] VITALS: BP 132/85; PULSE 76; RESP 14; O2SAT 100
[2024-09-07 22:56] VITALS: BP 132/85; PULSE 76; RESP 14; TEMP 36.7; O2SAT 100
== END 2024-09-07 22:57 | disposition home or self-care (01) ==
PROVIDERS: Physician Assistant; Emergency Provider Emergency Medicine; PCP Internal Medicine
DX: R07.9 Chest pain, unspecified (principal); R53.83 Other fatigue; E11.9 Type 2 diabetes mellitus without complications; Z03.818 Encounter for observation for suspected exposure to other biological agents ruled out; Z79.84 Long term (current) use of oral hypoglycemic drugs
CPT/HCPCS: 0241U; 36415; 80053; 83690; 83735; 84443; 84484; 85025; 93005; 99283; 99285

== ENCOUNTER → 2024-09-07 17:43 | Outpatient (BNV) | payer OTHER, SELFPAY | PROVIDERS: Emergency Provider Emergency Medicine; PCP Internal Medicine; Visit Provider Internal Medicine | DX: R07.89 Other chest pain (principal) | CPT/HCPCS: 93010 ==

== ENCOUNTER 2024-11-01 08:47 | Outpatient (AMB) | payer OTHER, SELFPAY ==
--- NOTE | 2024-11-01 08:50 | MHC.OFFVIS ---
Intake Visit Reasons: scrotal pain Intake Note: Patient is present for [facility] Urology Medication:NONE Antibiotic Allergy:PENICILLINS Blood Thinner:NONE Assistant Customer Service Manager Required: No Allergies Penicillins Allergy (Intermediate, Verified 11/01/24 09:32) Hives Medication List - Last Reconciled 11/01/24 by JASIEL Dowd-JORGE alcohol swabs (Alcohol Prep Pads) pad topical DAILY atorvastatin 40 mg PO DAILY dulaglutide (Trulicity) mg subcut QWEEK empagliflozin (Jardiance) 10 mg PO DAILY gabapentin 300 mg PO TID lancets (TRUEplus Lancets) As directed metformin 1,000 mg PO omeprazole 40 mg PO DAILY trazodone 50 mg PO BEDTIME HPI Comments Details: is a very pleasant 49-year-old male patient of Dr. Jewels Gonzalez. He has a past medical history of GERD and diabetes. He presents to the office today as a new patient for lower urinary tract symptoms he had been experiencing as well as right-sided testicular pain. He reports testicular pain and lower urinary tract symptoms have since subsided however has since been referred here. Most recent scrotal ultrasound results were reviewed. 08/29 bilateral testicles demonstrate normal homogeneous echotexture with no masses. Unremarkable scrotal ultrasound. He also reports noting episodes of urinary urgency and frequency however relates this to his diabetes. He reports since he has started Jardiance and metformin he does feel lower urinary tract symptoms have improved. In office urinalysis results reviewed with the patient today. 3+ glucosuria otherwise within normal limits. We did discussed correlation of uncontrolled diabetes/diabetes on lower urinary tract symptoms as well as overall health and well-being. When asked he does report a potential history of prostate cancer. He reports his father had a prostate procedure approximately 10 years ago however is unsure if this was related to prostate cancer or an enlarged prostate. He discusses his ongoing issues with anxiety and housing. He reports recently establishing care with a psychiatrist. He currently denies any bothersome urinary issues. He denies urinary urgency, urinary frequency, incontinence, nocturia, hematuria, dysuria, foul smelling urine, changes to urinary stream, flank pain, fever, and or chills. He is happy with his current voiding parameters. assessment was offered however deferred. Will obtain PSA and retroperitoneal ultrasound for further assessment evaluation. All questions were answered. He otherwise offers no other issues or concerns at this time. [facility] Social History Alcohol intake: former Review of Systems Const All systems reviewed & are unremarkable except as noted in HPI and below Physical Exam Const General: cooperative, healthy appearing, comfortable, no acute distress, well developed, alert and awake Nutritional Appearance: overweight Orientation/consciousness: patient oriented x3 Limitations: no limitations HEENT Head: Yes normal to inspection, Yes normocephalic and Yes atraumatic Ears: hearing grossly normal bilaterally Eyes General: appearance normal, both eyes and all related structures Neck Neck: Yes normal visual inspection and Yes trachea midline Chest Chest palpation & inspection: normal inspection of the chest Resp Effort & Inspection: normal respiratory effort and able to speak in complete sentences Cardio Rate: regular rate GI Inspection: Yes normal to inspection General: Yes no CVA tenderness Back/Spine/Pelvis Back: no CVA tenderness Skin General skin exam: no rashes or lesions noted Neuro General: patient oriented x3 Extrem General: Yes normal to inspection Psych Appearance: grossly normal and well kempt Mental Status: mental status grossly normal Speech and movement: Normal speech and movement present and Clear speech present Affect: normal affect Attitude: cooperative Thought process: Normal thought process present Thought content: Normal thought content present Insight: Fair insight present (Psych) Judgement: Fair judgement present (Psych) Results AMB Urinalysis, Automated UA Leukoctes 0 Armando/uL Last Edit by SILVINA Ardon on 11/01/24 09:18 UA Nitrite Negative Last Edit by SILVINA Ardon on 11/01/24 09:18 UA Urobilinogen 0.2 mg/dL Last Edit by SILVINA Ardon on 11/01/24 09:18 UA Protein 0 mg/dL Last Edit by SILVINA Ardon on 11/01/24 09:18 UA pH 6.0 Last Edit by SILVINA Ardon on 11/01/24 09:18 UA Blood 0 Giacomo/uL Last Edit by SILVINA Ardon on 11/01/24 09:18 UA Specific Winslow 1.010 Last Edit by SILVINA Ardon on 11/01/24 09:18 UA Ketone Negative Last Edit by SILVINA Ardon on 11/01/24 09:18 UA Bilirubin 0 mg/dL Last Edit by SILVINA Ardon on 11/01/24 09:18 UA Glucose 1000 mg/dL Last Edit by SILVINA Ardon on 11/01/24 09:18 Results Reviewed Results Reviewed: Laboratory Last Values Urine pH (Auto) 6.0 11/01/24 08:54 Specific Winslow (Auto) 1.010 11/01/24 08:54 Urine Protein (Auto) 0 mg/dL 11/01/24 08:54 Glucose (UA)(Auto) 1000 mg/dL 11/01/24 08:54 Urine Ketones (Auto) Negative 11/01/24 08:54 Urine Blood (Auto) 0 Giacomo/uL 11/01/24 08:54 Urine Nitrite (Auto) Negative 11/01/24 08:54 Urine Bilirubin (Auto) 0 mg/dL 11/01/24 08:54 Urine Urobilinogen (Auto) 0.2 mg/dL 11/01/24 08:54 Leukocyte Esterase (Auto) 0 Armando/uL 11/01/24 08:54 Date of Service: 08/24/24 FINDINGS: Real-time grayscale ultrasound imaging of the scrotum was performed. RIGHT TESTICLE: The right testis measures 4.4 x 2.5 x 3.0 cm and demonstrates normal homogeneous echotexture. No masses are seen. The right testis demonstrates normal color Doppler flow. RIGHT EPIDIDYMIS: Normal in size, shape, and vascularity. LEFT TESTICLE: The left testis measures 4.1 x 2.1 x 2.8 cm and demonstrates normal homogeneous echotexture. No masses are seen. The left testis demonstrates normal color Doppler flow. LEFT EPIDIDYMIS: Normal in size, shape, and vascularity. VARICOCELE: None. HYDROCELE: No significant hydrocele is seen. OTHER COMMENTS: None. US/US scrotum IMPRESSION: Unremarkable scrotal ultrasound. Assessment & Plan Assessment & Plan (1) Lower urinary tract symptoms: Code(s): R39.9 - Unspecified symptoms and signs involving the genitourinary system Category: Medical Plan In office urinalysis results reviewed with the patient today; as noted above. We discussed potential causes of lower urinary tract symptoms patient was experiencing as well as further treatment options and risks and benefits of these treatment options. Recent scrotal ultrasound results reviewed with the patient today; as noted above. All questions were answered. Will obtain retroperitoneal ultrasound for further assessment evaluation. Will obtain PSA for further assessment evaluation. We discussed the importance of management and diabetes for improvement in overall health and well-being as well as lower urinary tract symptoms. Follow-up in 1-3 months with imaging and labs as well as PVR; or sooner with any issues, concerns, and or questions. Orders: Orders US retroperitoneal comp Today R39.9 - Unspecified symptoms and signs involving the genitourinary system AMB Urinalysis Automated Today Z13.9 - Encounter for screening, unspecified Prostate Specific Antigen Today R39.9 - Unspecified symptoms and signs involving the genitourinary system Patient Instructions: The patient had an opportunity to ask questions regarding the treatment plan. All questions were answered. Physical exam, labs, and imaging were discussed and reviewed in detail. As well as risks, benefits, and discussion of treatment choices. No major barriers to understanding were identified. The patient expressed understanding and agreement with the above treatment plan. The patient was made aware they should contact our office by phone for worsening of their current condition, the appearance of new symptoms, or with any questions or concerns. Compliance is encouraged with any medications and follow up testing that is ordered. It is a privilege to be allowed the opportunity to participate in? your urological care.? Again, if you have any questions or concerns If you have any questions or concerns please do not hesitate to contact me. The office is [phone]. This note is constructed using voice recognition software. While every effort has been made to ensure accuracy cad developer errors may have been included. Yours sincerely, VINOD Dowd Coding Level of Care Code New Pt Level 3 (41776) Diagnoses Lower urinary tract symptoms R39.9
--- OUTSIDE RECORDS SUMMARY | 2024-11-01 09:18 | XMS_ITS | Clinical Summary ---
Author Organization [employer] Address [address] [place] [address] [address] [place] [address] Care Team Providers Care Silver Cleaner Name Role Phone Jade Laguerre MD Primary Care Provide r Allergies Active Allergy Reactions Criticality Noted Date Comments Penicillins Dermatitis,Hives,Other High 05/18/2021 Eczema Medications * This document contains information received from the source organization and may not represent a complete record from that organization. traZODone (Desyrel) 100 MG tabletIndications :Mixed anxiety and depressive disorder TAKE 1 TABLET(100 MG) BY MOUTH AT BEDTIME 30 tablet 1 05/22/19 24 Active Dulaglutide 0.75 MG/0.5ML solution auto-injectorIndi cations:Type 2 diabetes mellitus with hyperglycemia, without long-term current use of insulin ([facility]) Inject 0.75 mg under the skin 1 (one) time per week. 2 mL 3 07/10/19 25 Active FREESTYLE LITE test stripIndications: Type 2 diabetes mellitus with hyperglycemia, without long-term current use of insulin (CMS/[facility]) Use to test blood sugar 1 times daily 100 each 12 07/10/19 25 026 Active Blood Glucose Monitoring Suppl (FreeStyle [place] Lite) w/Device kitIndications:Ty pe 2 diabetes mellitus with hyperglycemia, without long-term current use of insulin (CMS/[facility]) Use to test blood sugar 1 times daily 1 kit 07/10/19 25 Active FREESTYLE LITE test stripIndications: Type 2 diabetes mellitus with hyperglycemia, without long-term current use of insulin (CMS/[facility]) Use to test blood sugar 1 times daily 100 each 12 07/22/19 25 026 Active Lancets miscIndications:T ype 2 diabetes mellitus with hyperglycemia, without long-term current use of insulin ([facility]) Use to test blood sugar 1 times daily 100 each 07/22/19 25 Active Alcohol Swabs 70 % padsIndications:T ype 2 diabetes mellitus with hyperglycemia, without long-term current use of insulin ([facility]) Use to test blood sugar 2 times daily 100 each 07/22/19 25 Active Blood Glucose Monitoring Suppl (FreeStyle [place] Lite) w/Device kitIndications:Ty pe 2 diabetes mellitus with hyperglycemia, without long-term current use of insulin ([facility]) Use to test blood sugar 2 times daily 1 kit 07/22/19 25 Active traZODone (Desyrel) 50 MG tabletIndications :Insomnia, unspecified type TAKE 1 TABLET BY MOUTH EVERY DAY AT BEDTIME 30 tablet 2 10/15/19 25 Active Dulaglutide (Trulicity) 1.5 MG/0.5ML solution auto-injectorIndi cations:Type 2 diabetes mellitus with hyperglycemia, without long-term current use of insulin ([facility]) Inject 1.5 mg under the skin 1 (one) time per week. 2 mL 10/16/19 25 Active empagliflozin (Jardiance) 10 MGIndications:Typ e 2 diabetes mellitus with hyperglycemia, without long-term current use of insulin ([facility]) Take 1 tablet (10 mg) by mouth Once per day. 30 tablet 10/16/19 25 026 Active gabapentin (Neurontin) 300 MG capsuleIndication s:Diabetic polyneuropathy associated with type 2 diabetes mellitus ([facility]) Take 1 capsule (300 mg) by mouth 3 times daily. 90 capsule 10/16/19 25 026 Active diphenhydrAMINE (BENADryl) 12.5 mg split tablet Take 25 mg by mouth if needed at bedtime for sleep. Active omeprazole (PriLOSEC) [address] capsule Take 40 mg by mouth before breakfast. 09/08/19 25 Active metFORMIN (Glucophage) 1000 MG tabletIndications :Type 2 diabetes mellitus with hyperglycemia, without long-term current use of insulin ([facility]) TAKE 1 TABLET TWICE DAILY IN THE MORNING AND IN THE EVENING WITH MEALS 180 tablet 10/20/19 25 Active atorvastatin (Lipitor) 40 MG tabletIndications :Dyslipidemia TAKE 1 TABLET EVERY DAY 90 tablet 10/20/19 25 Active Alcohol Swabs (Alcohol Prep) 70 % padsIndications:T ype 2 diabetes mellitus with hyperglycemia, without long-term current use of insulin ([facility]) USE DIRECTED TO TEST BLOOD SUGAR ONCE DAILY 100 each 10/20/19 25 Active TRUEplus Lancets 33G miscIndications:T ype 2 diabetes mellitus with hyperglycemia, without long-term current use of insulin ([facility]) USE DIRECTED TO TEST BLOOD SUGAR ONCE DAILY 100 each 10/20/19 25 Active emtricitabine-ten ofovir AF (Descovy) 200-25 MG tabletIndications :On pre-exposure prophylaxis for HIV Take 1 tablet by mouth in the morning. 30 tablet 2 03/27/20 23 025 Discontinued gabapentin (Neurontin) 300 MG capsuleIndication s:Diabetic polyneuropathy associated with type 2 diabetes mellitus (CMS/HCC) Take 1 capsule (300 mg) by mouth 3 times daily. 90 capsule 11 04/14/19 24 025 Discontinued(R eorder (will not trigger notification to Pharmacy)) atorvastatin (Lipitor) 40 MG tabletIndications :Dyslipidemia Take 1 tablet (40 mg) by mouth Once per day. 90 tablet 07/10/19 025 Discontinued gabapentin (Neurontin) 800 MG tabletIndications :Type 2 diabetes mellitus with hyperglycemia, without long-term current use of insulin ([facility]) Take 1 tablet (800 mg) by mouth at bedtime. 30 tablet 2 07/10/19 025 Discontinued metFORMIN (Glucophage) 1000 MG tabletIndications :Type 2 diabetes mellitus with hyperglycemia, without long-term current use of insulin ([facility]) take 1 tablet by oral route 2 times every day with morning and evening meals 180 tablet 07/10/19 25 025 Discontinued traZODone (Desyrel) 50 MG tabletIndications :Insomnia, unspecified type Take 1 tablet (50 mg) by mouth at bedtime. 30 tablet 2 07/10/19 25 025 Discontinued Lancets miscIndications:T ype 2 diabetes mellitus with hyperglycemia, without long-term current use of insulin ([facility]) Use to test blood sugar 1 times daily 100 each 07/10/19 025 Discontinued Alcohol Swabs 70 % padsIndications:T ype 2 diabetes mellitus with hyperglycemia, without long-term current use of insulin ([facility]) Use to test blood sugar 1 times daily 100 each 07/10/19 025 Discontinued gabapentin (Neurontin) 800 MG tabletIndications :Type 2 diabetes mellitus with hyperglycemia, without long-term current use of insulin ([facility]) TAKE 1 TABLET AT BEDTIME 30 tablet 2 10/15/19 025 Discontinued empagliflozin (Jardiance) 10 MGIndications:Typ e 2 diabetes mellitus with hyperglycemia, without long-term current use of insulin ([facility]) Take 1 tablet (10 mg) by mouth Once per day. 30 tablet 10/16/19 025 Discontinued empagliflozin (Jardiance) 10 MGIndications:Typ e 2 diabetes mellitus with hyperglycemia, without long-term current use of insulin ([facility]) Take 1 tablet (10 mg) by mouth Once per day. 30 tablet 10/16/19 025 Discontinued Dulaglutide (Trulicity) 1.5 MG/0.5ML solution auto-injectorIndi cations:Type 2 diabetes mellitus with hyperglycemia, without long-term current use of insulin ([facility]) Inject 1.5 mg under the skin 1 (one) time per week. 2 mL 10/16/19 025 Discontinued Active Problems Problem Noted Date Diagnosed Date Polyp of sigmoid colon 10/15/2024 Dyslipidemia 07/09/2024 Colon cancer screening 04/14/2023 Pain in right testicle 04/14/2023 Assessment & Plan (04/14/2023 12:17 PM EST): US ordered after result I will refer him to urology Diabetic polyneuropathy asso óscar with type 2 diabetes mellitus 04/14/2023 Assessment & Plan (10/15/2024 3:18 PM EDT): I changed his gabapentin to 300 mg every 8 hours Homeless 04/14/2023 Type 2 diabetes mellitus 08/12/2022 Assessment & Plan (10/15/2024 3:18 PM EDT): Diabetes is: not controlled - Lab Results Component Value Date HGBA1C 9.3 (A) 10/15/2024 HGBA1C 10.8 (A) 07/09/2024 HGBA1C 12.9 (A) 04/14/2023 - Lab Results Component Value Date MICROALBUR 18.0 07/09/2024 CREATININE 1.02 09/07/2024 -Changes: Today went up on his Trulicity to 1.5 mg weekly and I also started him on Jardiance continue with same metformin - Diabetic eye exam: Patient has an appointment - Diabetic foot exam: Patient has a follow-up appointment with podiatry - Continue lifestyle modifications - Continue current medications - Follow up: 3 months Assessment & Plan (07/09/2024 2:16 PM EDT): [...] and depressive disorder 08/12/2022 Assessment & Plan (10/15/2024 3:18 PM EDT): Counseling done [facility] referral done Assessment & Plan (04/14/2023 12:19 PM EST): Counseling done I will start trazodone 100mg at bed time [facility] called Chronic low back pain 08/12/2022 Insomnia 08/12/2022 Assessment & Plan (07/09/2024 2:15 PM EDT): Sleep hygiene counseling done I will restart patient on trazodone 50 mg at bedtime Encounters * This document contains information received from the source organization and may not represent a complete record from that organization. Date Type Department Care Team Description 10/19/2024 Telephone [facility] [address] [place] [phone] Jade Laguerre MD 10/18/2024 Refill [facility] [address] [place] [phone] Jade Laguerre MD Type 2 diabetes mellitus with hyperglycemia, without long-term current use of insulin (CMS/HCC); Dyslipidemia 10/15/2024 2:30 PM EDT Office Visit [facility] [address] [place] [address] Eleonora Gaviria OD Type 2 diabetes mellitus without ophthalmic manifestations (CMS/HCC) (Primary Dx); Presbyopia 10/15/2024 9:45 AM EDT Office Visit [facility] [address] [place] [address] Jade Laguerre MD Type 2 diabetes mellitus with hyperglycemia, without long-term current use of insulin (CMS/HCC); Diabetic polyneuropathy associated with type 2 diabetes mellitus (CMS/HCC); Polyp of sigmoid colon, unspecified type; Mixed anxiety and depressive disorder 10/15/2024 Travel 10/14/2024 Telephone [facility] [address] [place], [place] [phone] Jade Laguerre MD Insurance 10/14/2024 Telephone [facility] [address] [place] [address] Tutu Solomon [place] 10/13/2024 Refill [facility] [address] [place] [phone] Jade Laguerre MD Insomnia, unspecified type; Type 2 diabetes mellitus with hyperglycemia, without long-term current use of insulin ([facility]) 10/11/[address] [address] Jade Laguerre MD No Show 10/07/2024 Telephone [facility] [address] [place] [phone] Jade Laguerre MD chart prep 10/01/2024 Patient Outreach [facility] [address] [place], [place] [phone] Jade Laguerre MD Pre-visit Planning (SDOH was already completed) 09/09/[address] [address] Jade Laguerre MD Referral 09/07/2024 Orders Only GENERIC EXTERNAL DATA DEPARTMENT Provider, Generic External Data 08/28/2024 Results Follow-Up [address] [address] Jade Laguerre MD Scrot 08/28/2024 Orders Only [facility] [address] [place] [phone] Jade Laguerre MD 08/24/2024 Orders Only [facility] [address] [place] [phone] Jade Laguerre MD 08/06/2024 Telephone [facility] [address] [place], [place] [phone] Jade Laguerre MD [place] from Last 3 Months Immunizations Immunization Administration Dates Next Due Influenza injectable quadriv alent preservative free 04/14/2023,01/02/2022,04/08/2021 Tdap 01/02/2022 Family History Medical History Relation Name Comments Diabetes Mother Relation Name Status Comments Mother Social History Tobacco Use Types Packs/Day Years Used Date Smoking Tobacco: Former Cigarettes Smokeless Tobacco: Never Tobacco Cessation:Counseling Given: Not Answered Comments:Quit smoking end of 2023 Depression Answer Date Recorded Patient Health Questionnaire-9 Score 0 10/15/2024 Patient Health Questionnaire-9 Score 0 10/15/2024 Last PHQ-9: Questionnaire Data Not on file 0 10/15/2024 Housing Stability Answer Date Recorded What is [...] Answer Date Recorded Patient Health Questionnaire-2 Score 0 10/15/2024 Internet Access Answer Date Recorded Internet Access [...] Sign Reading Time Taken Comments Blood Pressure 110/82 10/15/2024 9:47 AM EDT Pulse 80 10/15/2024 9:47 AM EDT Temperature 37.1 C (98.7 F) 10/15/2024 9:47 AM EDT Respiratory Rate 20 10/15/2024 9:47 AM EDT Oxygen Saturation 97% 07/28/2024 5:15 PM EDT RA Inhaled Oxygen Concentration - - Weight 106 kg (234 lb 9.6 oz) 10/15/2024 9:47 AM EDT Height 181.6 cm (5' 11.5 ) 10/15/2024 9:47 AM ED T Body Mass Index 32.26 10/15/2024 9:47 AM EDT Plan of Treatment Upcoming Encounters Date Type Department Care Team (Late st Contact Info) Description 01/10/2025 3:30 PM EDT Office Visit [facility] [address] [place] [address] Jade Laguerre MD [address] [place], [place] [phone] Health Maintenance Due Date Last Done Comments CT Colonography 1977 Colonoscopy 1977 Colorectal Cancer Screening 1977 FIT DNA/Cologuard 1977 FIT 1977 FOBT 1977 Sigmoidoscopy 1977 Disability Screening 1977 Diabetes: Foot Exam 09/25/1987 Family Planning (PISQ) 1992 Hepatitis B Vaccines (1 of 3 - 19+ 3-dose series) 1996 Pneumococcal Vaccine: Pediatrics (0 to 5 Years) and At-Risk Patients (6 to 49) Years (1 of 2 - PCV) 1996 COVID-19 Vaccine (2 - season) 2023 04/08/2021 Influenza Vaccine (#1) 2024 , 01/02/2022, 04/08/2021 Diabetes: Hemoglobin A1C 01/15/2025 025, 07/09/2024, 04/14/2023, Additional history exists SDOH Screening 07/01/2025 07/01/2024 Diabetes: Urine Protein Screening 07/09/2025 07/09/2024, 04/15/2023, 08/07/2021 Lipid Panel 07/09/2025 07/09/2024, 08/07/2021 Alcohol/Substance Use Screening 10/15/2025 10/15/2024 Depression Screening 10/15/2025 10/15/2024, 10/16/19 Tobacco Screening 10/15/2025 10/15/2024 Eye Exam 10/15/2026 10/15/2024, 10/05, 10/15/2024, Additional history exists Zoster Vaccines (1 of 2) 09/25/2027 DTaP/Tdap/Td Vaccines (2 - Td or Tdap) 01/03/2032 01/02/2022 RSV Patients and Patients Aged 60 years or older (1 - 1-dose 75+ series) 2052 HIV Screening Completed 04/14/2023, 12/07, 08/07/2021 Hepatitis C Screening Completed 04/14/2023 , [...] Procedure Name Priority Date/Time Associated Diagnosis Comments POCT GLYCATED HEMOGLOBIN, TOTAL Routine 10/15/2024 9:57 AM EDT Type 2 diabetes mellitus with hyperglycemia, without long-term current use of insulin ([facility]) POCT GLUCOSE Routine 10/15/2024 9:57 AM EDT Type 2 diabetes mellitus with hyperglycemia, without long-term current use of insulin ([facility]) TSH W/REFLEX TO FT4 Routine 09/07/2024 6 :25 PM EDT HIGH SENSITIVITY TROPONIN I Routine 09/07/2024 6:25 PM EDT LIPASE Routine 09/07/2024 6:25 PM EDT MAGNESIUM Routine 09/07/2024 6:25 PM EDT COMPREHENSIVE METABOLIC PANEL Routine 09/07/2024 6:25 PM EDT CBC WITH AUTO DIFFERENTIAL Routine 09/07/2024 6:25 PM EDT SARS COV2/INFLUENZA A/B AND RSV RNA QL NAAT Routine 09/07/2024 6:25 PM EDT US SCROTUM Routine 08/24/2024 4:04 PM EDT ALBUMIN, RANDOM URINE W/CREATININE Routine 07/09/2024 12:20 PM EDT Type 2 diabetes mellitus with hyperglycemia, without long-term current use of insulin (CMS/HCC) LIPID PANEL, STANDARD Routine 07/09/2024 11:20 AM EDT Type 2 diabetes mellitus with hyperglycemia, without long-term current use of insulin (CMS/HCC) HEPATITIS C AB W/REFL TO HCV RNA, QN, PCR Routine 04/14/2023 11:36 AM EST Mixed anxiety and depressive disorder HIV 1/2 ANTIGEN/ANTIBODY, FOURTH GENERATION W/RFL Routine 04/14/2023 11:36 AM EST Mixed anxiety and depressive disorder from Last 3 Months or Most Recently Relevant to Health Maintenance Results * (ABNORMAL) POCT HGB A1C (10/15/2024 9:57 AM EDT) Hemoglobin A1C 9.3(A) 4.0 - 5.7 % QC Media Lot # [id number] Lot# Expiration Date [id number] Blood 10/15/2024 9:57 AM EDT Jade Gonzalez MD POINT OF CARE TEST EN TER/EDIT ORDERABLES Final Result * (ABNORMAL) POCT Glucose (10/15/2024 9:57 AM EDT) [facility] Glucose Blood, POC 296(A) 60 - 200 mg/dL QC Media Lot # [id number] Lot# Expiration Date Blood Capillary blood specimen / Unknown 10/15/2024 9:57 AM EDT Jade Gonzalez MD POINT OF CARE TEST EN TER/EDIT ORDERABLES Final Result * High Sensitivity Troponin I (09/07/2024 6:25 PM EDT) [facility] TROPONIN I HIGH SENSITIVITY <2.7 <3.5 - 35.0 ng/L [facility] Comment:The [place] high sens itivity Troponin-I results should beused in conjunction with other diagnostic information suchas ECG, clinical observations and information, and patientsymptoms to aid in the diagnosis of [place]. 09/07/2024 6:25 PM EDT 09/07/2024 6:28 PM EDT Generic External Data Provider LAB BLOOD ORDERAB LES Final Result Performing Organization Address City/[facility]/ZIP Co de Phone Number [facility] [address] [place] [address] [phone] * TSH with Reflex to Free T4 (09/07/2024 6:25 PM EDT) [facility] TSH reflex Free T4 1.88 0.32 - 4.0 uIU/mL [facility] 09/07/2024 6:25 PM EDT 09/07/2024 6:28 PM EDT Generic External Data Provider LAB BLOOD ORDERAB LES Final Result Performing Organization Address City/[facility]/ZIP Co de Phone Number [facility] [address] [place] [phone] * SARS-CoV-2 RNA, Influenza A/B, and RSV RNA, Ql NAAT (09/07/2024 6:25 PM EDT) [facility] Influenza A PCR NEGATIVE Negative [facility] Influenza B PCR NEGATIVE Negative [facility] Resp Syncy Virus RNA Qual PCR NEGATIVE Negative [facility] SARS COV2 PCR NEGATIVE Negative [facility] Comment:All test results mus t be correlated with clinical findings.Negative results do not preclude SARS-CoV2, influenza Avirus, influenza B virus and/or RSV infectionand should not be used as the sole basis for treatment orother patient management decisions. Negative results must becombined with clinical observations, patient history, andepidemiological information.This test has not been evaluated for monitoring treatment ofinfection.This test has been authorized by the FDA under an EmergencyUse Authorization (EUA) for use by authorized laboratories.Testing performed on the [employer] GeneXpert utilizingreal-time RT-PCR.All SARS CoV2 and positive influenza A/B results arereported to [facility]. 09/07/2024 6:25 PM EDT 09/07/2024 6:28 PM EDT us Generic External Data Provider LAB MICROBIOLOGY - GENERAL ORDERABLES Final Result [facility] [address] [place] [phone] * (ABNORMAL) CBC auto differential (09/07/2024 6:25 PM EDT) [facility] White Blood Count 9.8 4.8 - 10.8 X10*3/uL [facility] Red Blood Count 4.87 4.60 - 5.80 X10*6/uL [facility] Hemoglobin 14.1 14.0 - 18.0 g/dl [facility] Hematocrit 40.2(L) 42.0 - 52.0 % [facility] Mean Corpuscular Volume 82.5 80.0 - 98.0 fL [facility] Mean Corpuscular Hemoglobin 29.0 27.0 - 33.0 pg [facility] Mean Corpuscular HGB Conc 35.1 31.0 - 36.0 g/dl [facility] Red Cell Distribution Width 12.0 11.0 - 16.0 % [facility] Platelet Count 267 160 - 400 X10*3/uL [facility] Mean Platelet Volume 10.2 9.4 - 12.4 fL [facility] Neutrophils Percent Auto 57.1 45 - 73 % [facility] Imm Gran Pct Auto 0.3 0.0 - 0.4 % [facility] Lymphocytes Percent Auto 30.7 20 - 40 % [facility] Monocytes Percent Auto 7.3 2 - 11 % [facility] Eosinophils Percent Auto 3.9 0 - 4 % [facility] Basophils Percent Auto 0.7 0 - 2 % [facility] NRBC Pct Auto 0.0 0.0 - 0.2 /100WBC [facility] Neutrophils Absolute Auto 5.6 2.0 - 8.3 x10*3/uL [facility] Imm Gran Abs Auto 0.03 0.00 - 0.03 X10*3/uL [facility] Lymphocytes Absolute Auto 3.0 1.2 - 4.9 X10*3/uL [facility] Monocytes Absolute Auto 0.7 0.1 - 1.2 X10*3/uL [facility] Eosinophils Absolute Auto 0.4 0.0 - 0.4 X10*3/uL [facility] Basophils Absolute Auto 0.1 0.0 - 0.2 X10*3/uL [facility] NRBC Abs Auto 0.000 0.0 - 0.012 X10*3/uL [facility] 09/07/2024 6:25 PM EDT 09/07/2024 6:28 PM EDT us Generic External Data Provider LAB BLOOD ORDERAB LES Final Result [facility] [address] [place] [phone] * Magnesium (09/07/2024 6:25 PM EDT) Pathologist [facility] Magnesium 1.9 1.6 - 2.6 mg/dL [facility] 09/07/2024 6:25 PM EDT 09/07/2024 6:28 PM EDT Generic External Data Provider LAB BLOOD ORDERAB LES Final Result Performing Organization Address City/[facility]/ZIP Co de Phone Number [facility] [address] [place] [phone] * Lipase (09/07/2024 6:25 PM EDT) Pathologist [facility] Lipase 21 8 - 78 U/L [facility] 09/07/2024 6:25 PM EDT 09/07/2024 6:28 PM EDT [employer] External Data Provider LAB BLOOD ORDERAB LES Final Result Performing Organization Address [facility] de Phone Number [facility] [address] [place] [phone] * (ABNORMAL) Comprehensive Metabolic Panel (09/07/2024 6:25 PM EDT) Pathologist [facility] Sodium 135 135 - 145 mmol/L [facility] Potassium 4.3 3.3 - 5.1 mmol/L [facility] Chloride 98 96 - 108 mmol/L [facility] Carbon Dioxide 30(H) 22 - 29 mmol/L [facility] Anion Gap 11(L) 12 - 20 [facility] Urea Nitrogen (BUN) 11 9 - 16 mg/dL [facility] Creatinine, Serum 1.02 0.5 - 1.4 mg/dL [facility] Creatinine Clr Calc Pharmacy 111.8 [facility] Comment:eGFR (calculated fro m the MDRD study equation) and eCrCl(calculated from the Cockcroft-Gault equation) are based ondifferent parameters and may not yield comparable results.If eCrCl result is absurd, please check patient'sheight/weight. Estimated Glomerular Filt Rate >60 [facility] Comment:Chronic Kidney Disea se: Estimated GFR < 60 mL/min/[id number] Kidney Disease: Estimated GFR < 15 mL/min/1.73m2 Glucose 282(H) 60 - 115 mg/dL [facility] Calcium 9.3 8.4 - 10.2 mg/dL [facility] Bilirubin, Total 0.5 0.0 - 1.0 mg/dL [facility] Aspartate Amino Transferase 22 5 - 37 U/L [facility] Alanine Aminotransferase 23 0 - 40 U/L [facility] Total Protein 7.6 6.5 - 8.0 g/dL [facility] Albumin Level 4.5 3.5 - 5.0 g/dL [facility] Alkaline Phosphatase 79 39 - 117 U/L [facility] 09/07/2024 6:25 PM EDT 09/07/2024 6:28 PM EDT us Generic External Data Provider LAB BLOOD ORDERAB LES Final Result Performing Organization Address City/State/[facility] Co de Phone Number [facility] [address] [place] [phone] * US Scrotum (08/24/2024 4:04 PM EDT) Anatomical Region Laterality Modality Body Ultrasound 08/24/2024 4:04 PM EDT Narrative 08/25/2024 7:17 AM EDT [address] [address] Ultrasound Report Signed Patient: Carlos Meehan MR#: [id number] : 1975 Acct:[id number] Age/Sex: 48 / M ADM Date: 08/24/24 Loc: HO.US Attending Dr: Jade Gonzalez MD Ordering Physician: Jade Laguerre MD Date of Service: 08/24/24 Procedure(s): US scrotum Accession Number(s): [id number] cc: Jade Laguerre MD EXAMINATION: US SCROTUM HISTORY: PAIN RT TESTICLE. COMPARISON: There are no prior studies for comparison. FINDINGS: Real-time grayscale ultrasound imaging of the scrotum was performed. RIGHT TESTICLE: The right testis measures 4.4 x 2.5 x 3.0 cm and demonstrates normal homogeneous echotexture. No masses are seen. The right testis demonstrates normal color Doppler flow. RIGHT EPIDIDYMIS: Normal in size, shape, and vascularity. LEFT TESTICLE: The left testis measures 4.1 x 2.1 x 2.8 cm and demonstrates normal homogeneous echotexture. No masses are seen. The left testis demonstrates normal color Doppler flow. LEFT EPIDIDYMIS: Normal in size, shape, and vascularity. VARICOCELE: None. HYDROCELE: No significant hydrocele is seen. OTHER COMMENTS: None. US/US scrotum IMPRESSION: Unremarkable scrotal ultrasound. Electronically signed by: Barrett Toussaint MD 08/25/2024 07:14 AM EDT RP Dictated By: Barrett Toussaint MD Signed By: <Electronically signed by Barrett Toussaint MD in OV> 08/25/24 0714 DD/ 1604 TD/TT: 08/24/24 1610 Upholsterer Apprentice: Procedure Note Donotuseinterpreter, Image - 08/25/[address] [address] Ultrasound Report Signed Patient: Yuli Meehan#: [id number] : 1975Acct:[id number] Age/Sex: 48 / MADM Date: 08/24/24 Loc: HO.US Attending Dr: Jade Gonzalez MD Ordering Physician: Jade Laguerre MD Date of Service: 08/24/24 Procedure(s): US scrotum Accession Number(s): [id number] cc: Jade Laguerre MD EXAMINATION: US SCROTUM HISTORY: PAIN RT TESTICLE. COMPARISON: There are no prior studies for comparison. FINDINGS: Real-time grayscale ultrasound imaging of the scrotum was performed. RIGHT TESTICLE: The right testis measures 4.4 x 2.5 x 3.0 cm and demonstrates normal homogeneous echotexture. No masses are seen. The right testis demonstrates normal color Doppler flow. RIGHT EPIDIDYMIS: Normal in size, shape, and vascularity. LEFT TESTICLE: The left testis measures 4.1 x 2.1 x 2.8 cm and demonstrates normal homogeneous echotexture. No masses are seen. The left testis demonstrates normal color Doppler flow. LEFT EPIDIDYMIS: Normal in size, shape, and vascularity. VARICOCELE: None. HYDROCELE: No significant hydrocele is seen. OTHER COMMENTS: None. US/US scrotum IMPRESSION: Unremarkable scrotal ultrasound. Electronically signed by: Barrett Toussaint MD 08/25/2024 07:14 AM EDT RP Dictated By: Barrett Toussaint MD Signed By: <Electronically signed by Barrett Toussaint MD in OV> 08/25/24 0714 DD/ 1604 TD/TT: 08/24/24 1610 Upholsterer Apprentice: us Jade Gonzalez MD IMG US PROCEDURES Fin al Result * Albumin, Random Urine W/Creatinine (07/09/2024 12:20 PM EDT) Creatinine, Urine 143.39 mg/dL [facility] Microalbumin Urine 18.0 mg/L [facility] Microalbum Creatinine Ratio Ur 12.5 <30 ug/mg cr [facility] Comment:Albumin/Creatinine R atio Reference Ranges: Normal: < 30 ug/mg creatinine Microalbuminuria: 30 - 300 ug/mg creatinineClinical Albuminuria: > 300 ug/mg creatinine Urine (Urine, Random) 07/09/2024 12:20 PM EDT 07/09/2024 1:03 PM EDT us Jade Gonzalez MD LAB URINE ORDERABLES Final Result [facility] [address] [place] [phone] * (ABNORMAL) Lipid Panel, Standard (07/09/2024 11:20 AM EDT) Triglycerides 371(H) <150 mg/dL [facility] Comment:Desirable Triglyceri de: less than 150 mg/dLBorderline High Triglyceride 150-199 mg/dLHigh Triglyceride: 200-499 mg/dLVery High Triglyceride: greater than or equal to 5OO mg/dL Cholesterol 258(H) <200 mg/dL [facility] Comment:Desirable Cholestero l: less than 200 mg/dLBorderline High Cholesterol: 200-239 mg/dLHigh Cholesterol: greater than 239 mg/dL LDL Cholesterol Calculated 147(H) <100 mg/dL [facility] Comment:Desirable LDL: less than 100 mg/dLNear Optimal/Above Optimal LDL: 110- 129 mg/dLBorderline High LDL: 130-159 mg/dLHigh LDL: 160-189 mg/dLVery High LDL: greater than or equal to 190 mg/dL HDL Cholesterol 37(L) >40 mg/dL [facility] Comment:Desirable HDL: great er than 40 mg/dL Note: This HDL assay may give artificially low results in patients with liver disease. Blood Venous blood specimen / Unknown 07/09/2024 11:20 AM EDT 07/09/2024 1:21 PM EDT us Jade Gonzalez MD LAB BLOOD ORDERABLES Final Result [facility] [address] [place] [phone] * Hepatitis C Antibody with Reflex to HCV, RNA, Quantitative, Real-Time PCR (04/14/2023 11:36 AM EST) Hepatitis C Antibody Nonreactive Nonreactive [facility] Comment:Antibodies to HCV no t detected; does not exclude early acuteHCV infection. Blood Venous blood specimen / Unknown 04/14/2023 11:36 AM EST 04/14/2023 1:34 PM EST us Jade Gonzalez MD LAB BLOOD ORDERABLES Final Result Performing Organization Address [facility]/ZIP Co de Phone Number [facility] [address] [place] [phone] * HIV-1/2 Antigen and Antibodies, Fourth Generation, with Reflexes (04/14/2023 11:36 AM EST) Pathologist [facility] HIV AB/AG Nonreactive Nonreactive [facility] Comment:HIV-1 p24 Ag and/or HIV-1/HIV-2 Ab not detected.A test result that is nonreactive does not exclude thepossibility of exposure to or infection with HIV-1 and/orHIV-2. Nonreactive results in this assay for individualswith prior exposure to HIV-1 and/or HIV-2 may be due toantigen and antibody levels that are below the limit ofdetection of this assay.The [employer] HIV Ag/Ab Combo assay result andsupplemental assay results should be interpreted inconjunction with the patient's clinical presentation,history and other laboratory results. If the results areinconsistent with clinical evidence, additional testing issuggested to confirm the result. Blood Venous blood specimen / Unknown 04/14/2023 11:36 AM EST 04/14/2023 1:34 PM EST us Jade Gonzalez MD LAB BLOOD ORDERABLES Final Result Performing Organization Address [facility]/ZIP Co de Phone Number [facility] [address] [place] [phone] from Last 3 Months or Most Recently Relevant to Health Maintenance Insurance [employer] Care Teams Silver Cleaner Relationship Specialty Start Date End Date Jade Laguerre MD [address] [place] [phone] PCP - General Internal Medicine 05/27/24
--- OUTSIDE RECORDS SUMMARY | 2024-11-01 09:18 | XMS_ITS | Clinical Summary ---
Author Organization [address] [facility] Address [address] [place] [address] Phone Care Team Providers Care Motor Express Clerk Name Role Phone Jade Laguerre MD Primary [...] 1:15 PM EDT Consult Orthopedic Surgery - [place] [address] [phone] Roney Turcios DPM [address] [address] Health Maintenance Due Date Last Done Comments Diabetes: Annual GFR (Glomer ular Filtration Rate) 1975 Diabetes: Annual Foot Exam 09/25/1987 Diabetes: Annual Retina Eye Exam 09/25/1987 DTaP,Tdap,and Td Vaccines (1 - Tdap) 1996 Hepatitis B Vaccines (1 of 3 - 19+ 3-dose series) 1996 Pneumococcal Vaccine: Pediat rics (0 to 5 Years) and At-Risk Patients (6 to 49 Years) (1 of 2 - PCV) 1996 Cholesterol Screening (Lipid Panel) 03/17/2022 Colorectal Cancer Screening: Colonoscopy 03/17/2022 HIV Screening 03/17/2022 Hepatitis C Screening 03/17/2022 Social Influencers of Health Screening 03/17/2022 COVID-19 Vaccine (2 - 2023-2 5 season) 2023 04/08/2021 Depression Screening 04/07/2024 Diabetes: Annual Urine Albumin-Creatinine Ratio (uACR) 08/07/2024 Diabetes: Blood Sugar Contro l Test (HGBA1C) 08/07/2024 Influenza Vaccine (#1) 2024 04/08/2021 HIB Vaccines Aged Out No longer eligi [...] to complete this topic Insurance MEDICAID - [place] [facility] Care Teams Motor Express Clerk Relationship Specialty Start Date End Date Jade Laguerre MD [address] [place] [phone] PCP - General Internal Medicine 10/18/21
--- OUTSIDE RECORDS SUMMARY | 2024-11-01 09:18 | XMS_ITS | Clinical Summary ---
Author Organization [facility] Address [address] [facility] [address] [place] [phone] Phone Care Team Providers Care Cash Posting Representative Name Role Phone Pcp, Unknown Primary Care Provider Unavailabl e Allergies Active Allergy Reactions Criticality Noted Date Comments Penicillins 08/28/2021 Medications metFORMIN (GLUCOPHAGE) 500 MG tablet Take 500 mg by mouth 2 (two) times a day with meals. Active atorvastatin (LIPITOR) 40 MG tablet Take 40 mg by mouth daily. Active gabapentin (NEURONTIN) 100 MG capsule Take 100 mg by mouth 3 (three) times a day. Active diphenhydrAMINE (BENADRYL) 25 mg tablet Take 25 mg by mouth nightly at bedtime as needed for sleep. Active citalopram (CELEXA) 20 MG tablet Take 20 mg by mouth daily. Active busPIRone (BUSPAR) 15 MG tablet Take 15 mg by mouth 3 (three) times a day. Active Social History Tobacco Use Types Packs/Day Years Used Date Smoking Tobacco: Every Day Cigarettes Tobacco Cessation:Ready to Q uit: Not Asked; Counseling Given: Not Answered Education Answer Date Recorded Are you interested in more education? Not on jack e 08/03/2022 Are you concerned about learning? Not on file 08/03/2022 No 08/03/2022 No 08/03/2022 Digital Access Answer Date Recorded No 09/03/2022 No 09/03/2022 Reliable internet access at home? Not on file 09/03/2022 Device with a working camera? Not on file Sex and Gender Information Value Date Recorded Sex Assigned at Not on file Legal Sex Male 5:57 AM EDT Gender Identity Not on file Sexual Orientation Not on file Last Filed Vital Signs Vital Sign Reading Time Taken Comments Blood Pressure 138/73 03/16/2022 2:07 AM EST Pulse 81 03/16/2022 2:07 AM EST Temperature 37.5 C (99.5 F) 03/16/2022 2:07 AM EST Respiratory Rate 18 03/16/2022 2:07 AM EST Oxygen Saturation 97% 03/16/2022 2:07 AM EST Inhaled Oxygen Concentration - - Weight 104.3 kg (230 lb) 03/16/2022 2:07 AM EST Height 182.9 cm (6') 03/16/2022 2:07 AM EST Body Mass Index 31.19 03/16/2022 2:07 AM EST Plan of Treatment Not on file Medical Devices Not on file Insurance [facility] C3 ACO Care Teams Cash Posting Representative Relationship Specialty Start Date End Date Pcp, Unknown PCP - General 08/28/21 Additional Source Comments The information contained in this document represents components of the legal health record. It is not the complete legal health record.[facility]
== END 2024-11-01 09:32 | disposition home or self-care (01) ==
LOC: HO.HUSH 08:49
PROVIDERS: PCP Internal Medicine; Visit Provider Nurse Practitioner Family
DX: R39.9 Unspecified symptoms and signs involving the genitourinary system (principal); Z13.9 Encounter for screening, unspecified
CPT/HCPCS: 99203

== ENCOUNTER → 2024-11-01 08:47 | Outpatient (BNVA) | payer OTHER, SELFPAY | PROVIDERS: PCP Internal Medicine; Visit Provider Nurse Practitioner Family | DX: R39.9 Unspecified symptoms and signs involving the genitourinary system (principal) | CPT/HCPCS: 81003 ==

== ENCOUNTER 2024-11-16 12:43 | Outpatient (REF) | payer OTHER, SELFPAY ==
--- NOTE | 2024-11-16 | PFT_ITS ---
Flows: FEV1: 98 % of predicted at 4.19 L FVC: 91 % of predicted at 4.95 L FEV1/FVC: 85 % Bronchodilator response: Absent Volumes: Total lung capacity: 81 % of predicted at 6.26 L Residual volume: 69 % of predicted at 1.31 L Slow vital capacity: 85 % of predicted at 4.95 L Expiratory reserve volume: 78 % of predicted at 1.29 L Diffusion capacity: Normal Impression: No obstructive or restrictive ventilatory defect. No bronchodilator response. Decreased expiratory reserve volume suggests extrathoracic restriction likely secondary to abdominal obesity. MTDD
--- OUTSIDE RECORDS SUMMARY | 2024-11-16 13:24 | XMS_ITS | Clinical Summary ---
Author Organization 175 [facility] Address [address] [place] [address] Phone Care Team Providers Care Inspector Aide Name Role Phone Jade Laguerre MD Primary [...] Care Team (Late st Contact Info) Description 01/17/2025 1:45 PM EDT Office Visit Orthopedic Surgery - [place] [address] [phone] Roney Turcios DPM [address] [address] Health Maintenance Due Date Last Done Comments DTaP,Tdap,and Td Vaccines (1 - Tdap) 1996 [...] 5 season) 2023 04/08/2021 Depression Screening 04/07/2024 Influenza Vaccine (#1) 2024 04/08/2021 HIB Vaccines [...] to complete this topic Insurance MEDICAID - [place] [facility] Care Teams Inspector Aide Relationship Specialty Start Date End Date Jade Laguerre MD [address] [phone] PCP - General Internal Medicine 10/18/21
--- OUTSIDE RECORDS SUMMARY | 2024-11-16 13:25 | XMS_ITS | Clinical Summary ---
Author Organization [facility] Address [address] [facility] [address] [place] [phone] Phone Care Team Providers Care Carpet Installer Name Role Phone Pcp, Unknown Primary Care [...] file Medical Devices Not on file Insurance [facility] C3 ACO Care Teams Carpet Installer Relationship Specialty Start Date End Date Pcp, Unknown PCP - General 08/28/21 Additional Source Comments The information contained in this document represents components of the legal health record. It is not the complete legal health record.[facility]
--- OUTSIDE RECORDS SUMMARY | 2024-11-16 13:25 | XMS_ITS | Clinical Summary ---
Author Organization [employer] Address [address] [place] [address] [address] [place] [address] Care Team Providers Care It Communications Specialist Name Role Phone Jade Laguerre MD Primary [...] BY MOUTH AT BEDTIME 30 tablet 1 024 Active Dulaglutide 0.75 MG/0.5ML solution auto-injectorIndi cations:Type 2 diabetes mellitus with hyperglycemia, without long-term current use of insulin ([facility]) Inject 0.75 mg under the skin 1 (one) time per week. 2 mL 3 025 Active FREESTYLE LITE test stripIndications: Type 2 diabetes mellitus with hyperglycemia, without long-term current use of insulin ([facility]) Use to test blood sugar 1 times daily 100 each 12 025 2025 Active Blood Glucose Monitoring Suppl (FreeStyle Monroe Lite) w/Device kitIndications:Ty pe 2 diabetes mellitus with hyperglycemia, without long-term current use of insulin ([facility]) Use to test blood sugar 1 times daily 1 kit 025 Active FREESTYLE LITE test stripIndications: Type 2 diabetes mellitus with hyperglycemia, without long-term current use of insulin ([facility]) Use to test blood sugar 1 times daily 100 each 12 025 2025 Active Lancets miscIndications:T ype 2 diabetes mellitus with hyperglycemia, without long-term current use of insulin ([facility]) Use to test blood sugar 1 times daily 100 each Active Alcohol Swabs 70 % padsIndications:T ype 2 diabetes mellitus with hyperglycemia, without long-term current use of insulin ([facility]) Use to test blood sugar 2 times daily 100 each Active Blood Glucose Monitoring Suppl (FreeStyle Monroe Lite) w/Device kitIndications:Ty pe 2 diabetes mellitus with hyperglycemia, without long-term current use of insulin ([facility]) Use to test blood sugar 2 times daily 1 kit Active traZODone (Desyrel) 50 MG tabletIndications :Insomnia, unspecified type TAKE 1 TABLET BY MOUTH EVERY DAY AT BEDTIME 30 tablet 2 Active empagliflozin (Jardiance) 10 MGIndications:Typ e 2 diabetes mellitus with hyperglycemia, without long-term current use of insulin ([facility]) Take 1 tablet (10 mg) by mouth Once per day. 30 tablet 2025 Active gabapentin (Neurontin) 300 MG capsuleIndication s:Diabetic polyneuropathy associated with type 2 diabetes mellitus ([facility]) Take 1 capsule (300 mg) by mouth 3 times daily. 90 capsule 2025 Active diphenhydrAMINE (BENADryl) 12.5 mg split tablet Take 25 mg by mouth if needed at bedtime for sleep. Active omeprazole (PriLOSEC) [address] capsule Take 40 mg by mouth before breakfast. Active metFORMIN (Glucophage) 1000 MG tabletIndications :Type 2 diabetes mellitus with hyperglycemia, without long-term current use of insulin ([facility]) TAKE 1 TABLET TWICE DAILY IN THE MORNING AND IN THE EVENING WITH MEALS 180 tablet Active atorvastatin (Lipitor) 40 MG tabletIndications :Dyslipidemia TAKE 1 TABLET EVERY DAY 90 tablet Active Alcohol Swabs (Alcohol Prep) 70 % padsIndications:T ype 2 diabetes mellitus with hyperglycemia, without long-term current use of insulin ([facility]) USE DIRECTED TO TEST BLOOD SUGAR ONCE DAILY 100 each Active TRUEplus Lancets 33G miscIndications:T ype 2 diabetes mellitus with hyperglycemia, without long-term current use of insulin ([facility]) USE DIRECTED TO TEST BLOOD SUGAR ONCE DAILY 100 each 11 Active Trulicity 1.5 MG/0.5ML solution auto-injectorIndi cations:Type 2 diabetes mellitus with hyperglycemia, without long-term current use of insulin ([facility]) INJECT ONE PEN (=1.5MG) SUBCUTANEOUSLY ONCE A WEEK DIRECTED 2 mL Active atorvastatin (Lipitor) 40 MG tabletIndications :Dyslipidemia Take 1 tablet (40 mg) by mouth Once per day. 90 tablet 025 2024 Discontinued metFORMIN (Glucophage) 1000 MG tabletIndications :Type 2 diabetes mellitus with hyperglycemia, without long-term current use of insulin ([facility]) take 1 tablet by oral route 2 times every day with morning and evening meals 180 tablet 025 2024 Discontinued Lancets miscIndications:T ype 2 diabetes mellitus with hyperglycemia, without long-term current use of insulin (CMS/HCC) Use to test blood sugar 1 times daily 100 each 025 2024 Discontinued Alcohol Swabs 70 % padsIndications:T ype 2 diabetes mellitus with hyperglycemia, without long-term current use of insulin ([facility]) Use to test blood sugar 1 times daily 100 each 025 2024 Discontinued Dulaglutide (Trulicity) 1.5 MG/0.5ML solution auto-injectorIndi cations:Type 2 diabetes mellitus with hyperglycemia, without long-term current use of insulin ([facility]) Inject 1.5 mg under the skin 1 (one) time per week. 2 mL 025 2024 Discontinued Active Problems Problem Noted Date Diagnosed Date Polyp of sigmoid colon 10/15/2024 Dyslipidemia 07/09/2024 Colon cancer screening 04/14/2023 Pain in right testicle 04/14/2023 Assessment & Plan (04/14/2023 12:17 PM EST): US ordered after result I will refer him to urology Diabetic polyneuropathy asso ciated with type 2 diabetes mellitus 04/14/2023 Assessment [...] organization. Date Type Department Care Team Description 11/10/2024 Telephone [facility] MEDICINE [address] [place] [phone] Jade Laguerre MD Prior Authorization 11/10/2024 Refill [facility]INE [address] [place] [phone] Jade Laguerre MD Type 2 diabetes mellitus with hyperglycemia, without long-term current use of insulin ([facility]) 11/01/2024 Telephone [facility] MEDICINE [address] [place] [phone] Jade Laguerre MD Referral 10/19/2024 Telephone [facility] MEDICINE [address] [place] [address] Jade Laguerre MD 10/18/2024 Refill [facility] MEDICINE [address] [place] [address] Jade Laguerre MD Type 2 diabetes mellitus with hyperglycemia, without long-term current use of insulin ([facility]); Dyslipidemia 10/15/2024 2:30 PM EDT Office Visit [facility] OPTOMETRY [address] [place] [address] Eleonora Gaviria, CECE Type 2 diabetes mellitus without ophthalmic manifestations ([facility]/HCC) (Primary Dx); Presbyopia 10/15/2024 9:45 AM EDT Office Visit [facility] MEDICINE [address] [place] [phone] Jade Laguerre MD Type 2 diabetes mellitus with hyperglycemia, without long-term current use of insulin (CMS/HCC); Diabetic polyneuropathy associated with type 2 diabetes mellitus (CMS/HCC); Polyp of sigmoid colon, unspecified type; Mixed anxiety and depressive disorder 10/15/2024 Travel 10/14/2024 Telephone [facility] MEDICINE [address] [place] [phone] Jade Laguerre MD Insurance 10/14/[address] [address] [place] 10/13/[address] [address] Jade Laguerre MD Insomnia, unspecified type; Type 2 diabetes mellitus with hyperglycemia, without long-term current use of insulin ([facility]) 10/11/[address] [address] Jade Laguerre MD No Show 10/07/[address] [address] Jade Laguerre MD chart prep 10/01/2024 Patient Outreach [facility] [address] [place], [place] [phone] Jade Laguerre MD Pre-visit Planning (SDOH was already completed) 09/09/[address] [address] Jade Laguerre MD Referral 09/07/2024 Orders Only GENERIC EXTERNAL DATA DEPARTMENT Provider, Generic External Data 08/28/2024 Results Follow-Up [address] [place] [address] Jade Laguerre MD US Scrotum 08/28/2024 Orders Only [facility] MEDICINE [place], [place] [address] Jade Laguerre MD 08/24/2024 Orders Only [facility] [place] [address] Jade Laguerre MD from Last 3 Months Immunizations Immunization Administration [...] with others, in a hotel, in a snf, living outside on the street, on a [...] Description 01/10/2025 3:30 PM EDT Office Visit [facility] MEDICINE [address] [place] [phone] Jade Laguerre MD [address] [place] [address] Health Maintenance Due Date Last Done Comments [...] Screening 10/15/2025 10/15/2024 Eye Exam 10/15/2026 10/15/2024, 0704/2024, 10/15/2024, Additional history exists Zoster Vaccines (1 [...] use of insulin (CMS/HCC) POCT GLUCOSE Routine 10/15/2024 9:57 AM EDT Type 2 diabetes mellitus with hyperglycemia, without long-term current use of insulin (CMS/HCC) TSH W/REFLEX TO FT4 Routine 09/07/2024 6 [...] POCT HGB A1C (10/15/2024 9:57 AM EDT) Pathologist [facility] Hemoglobin A1C 9.3(A) 4.0 - 5.7 % QC Media Lot # [id number] Lot# Expiration Date Blood 10/15/2024 9:57 AM EDT Jade Gonzalez MD POINT OF CARE TEST EN TER/EDIT ORDERABLES Final Result * (ABNORMAL) POCT Glucose (10/15/2024 9:57 AM EDT) Pathologist [facility] Glucose Blood, POC 296(A) 60 - 200 mg/dL QC Media Lot # [id number] Lot# Expiration Date Blood Capillary blood specimen / Unknown 10/15/2024 9:57 AM EDT Jade Gonzalez MD POINT OF CARE TEST EN TER/EDIT ORDERABLES Final Result * High Sensitivity Troponin I (09/07/2024 6:25 PM EDT) [facility] TROPONIN I HIGH SENSITIVITY <2.7 <3.5 - 35.0 ng/L [facility] Comment:The [place] high sens itivity Troponin-I results should beused in conjunction with other diagnostic information suchas ECG, clinical observations and information, and patientsymptoms to aid in the diagnosis of [place]. 09/07/2024 6:25 PM EDT 09/07/2024 6:28 PM EDT Generic External Data Provider LAB BLOOD ORDERAB LES Final Result [facility] [address] [place] [address] [phone] * TSH with Reflex to Free T4 (09/07/2024 6:25 PM EDT) TSH reflex Free T4 1.88 0.32 - 4.0 uIU/mL [facility] 09/07/2024 6:25 PM EDT 09/07/2024 6:28 PM EDT us Generic External Data Provider LAB BLOOD ORDERAB LES Final Result Performing Organization Address [facility] Co de Phone Number [facility] [address] [place] [address] [phone] * SARS-CoV-2 RNA, Influenza A/B, and RSV RNA, Ql NAAT (09/07/2024 6:25 PM EDT) Pathologist [facility] Influenza A PCR NEGATIVE Negative [facility] Influenza B PCR NEGATIVE Negative [facility] Resp Syncy Virus RNA Qual PCR NEGATIVE Negative [facility] SARS COV2 PCR NEGATIVE Negative [facility] Comment:All test results mus t be [...] use by authorized laboratories.Testing performed on the [employer] GeneXpert utilizingreal-time RT-PCR.All SARS CoV2 and positive influenza A/B results arereported to [facility]. 09/07/2024 6:25 PM EDT 09/07/2024 6:28 PM EDT us Generic External Data Provider LAB MICROBIOLOGY - GENERAL ORDERABLES Final Result [facility] [address] [place] [phone] * (ABNORMAL) CBC auto differential (09/07/2024 6:25 PM EDT) White Blood Count 9.8 4.8 - 10.8 X10*3/uL [facility] Red Blood Count 4.87 4.60 - 5.80 X10*6/uL [facility] Hemoglobin 14.1 14.0 - 18.0 g/dl [facility] Hematocrit 40.2(L) 42.0 - 52.0 % [facility] Mean Corpuscular Volume 82.5 80.0 - 98.0 fL [facility] Mean Corpuscular Hemoglobin 29.0 27.0 - 33.0 pg [facility] Mean Corpuscular HGB Conc 35.1 31.0 - 36.0 g/dl [facility] Red Cell Distribution Width 12.0 11.0 - 16.0 % [facility] Platelet Count 267 160 - 400 X10*3/uL [facility] Mean Platelet Volume 10.2 9.4 - 12.4 fL [facility] Neutrophils Percent Auto 57.1 45 - 73 % [facility] Imm Gran Pct Auto 0.3 0.0 - 0.4 % [facility] Lymphocytes Percent Auto 30.7 20 - 40 % [facility] Monocytes Percent Auto 7.3 2 - 11 % [facility] Eosinophils Percent Auto 3.9 0 - 4 % [facility] Basophils Percent Auto 0.7 0 - 2 % [facility] NRBC Pct Auto 0.0 0.0 - 0.2 /100WBC [facility] Neutrophils Absolute Auto 5.6 2.0 - 8.3 x10*3/uL [facility] Imm Gran Abs Auto 0.03 0.00 - 0.03 X10*3/uL [facility] Lymphocytes Absolute Auto 3.0 1.2 - 4.9 X10*3/uL [facility] Monocytes Absolute Auto 0.7 0.1 - 1.2 X10*3/uL [facility] Eosinophils Absolute Auto 0.4 0.0 - 0.4 X10*3/uL [facility] Basophils Absolute Auto 0.1 0.0 - 0.2 X10*3/uL [facility] NRBC Abs Auto 0.000 0.0 - 0.012 X10*3/uL [facility] 09/07/2024 6:25 PM EDT 09/07/2024 6:28 PM EDT Generic External Data Provider LAB BLOOD ORDERAB LES Final Result Performing Organization Address City/[facility]/ZIP Co de Phone Number [facility] [address] [place] [phone] * Magnesium (09/07/2024 6:25 PM EDT) Magnesium 1.9 1.6 - 2.6 mg/dL [facility] 09/07/2024 6:25 PM EDT 09/07/2024 6:28 PM EDT Generic External Data Provider LAB BLOOD ORDERAB LES Final Result Performing Organization Address [facility] Co de Phone Number [facility] [address] [place] [phone] * Lipase (09/07/2024 6:25 PM EDT) Lipase 21 8 - 78 U/L [facility] 09/07/2024 6:25 PM EDT 09/07/2024 6:28 PM EDT Generic External Data Provider LAB BLOOD ORDERAB LES Final Result Performing Organization Address [facility] Co de Phone Number [facility] [address] [place] [phone] * (ABNORMAL) Comprehensive Metabolic Panel (09/07/2024 6:25 PM EDT) Sodium 135 135 - 145 mmol/L [facility] Potassium 4.3 3.3 - 5.1 mmol/L [facility] Chloride 98 96 - 108 mmol/L [facility] Carbon Dioxide 30(H) 22 - 29 mmol/L [facility] Anion Gap 11(L) 12 - 20 [facility] Urea Nitrogen (BUN) 11 9 - 16 mg/dL [facility] Creatinine, Serum 1.02 0.5 - 1.4 mg/dL [facility] Creatinine Clr Calc Pharmacy 111.8 [facility] Comment:eGFR (calculated fro m the MDRD study equation) and eCrCl(calculated from the Cockcroft-Gault equation) are based ondifferent parameters and may not yield comparable results.If eCrCl result is absurd, please check patient'sheight/weight. Estimated Glomerular Filt Rate >60 [facility] Comment:Chronic Kidney Disea se: Estimated GFR < 60 mL/min/1.00p6Uaihtv Kidney Disease: Estimated GFR < 15 mL/min/1.73m2 Glucose 282(H) 60 - 115 mg/dL [facility] Calcium 9.3 8.4 - 10.2 mg/dL [facility] Bilirubin, Total 0.5 0.0 - 1.0 mg/dL [facility] Aspartate Amino Transferase 22 5 - 37 U/L [facility] Alanine Aminotransferase 23 0 - 40 U/L [facility] Total Protein 7.6 6.5 - 8.0 g/dL [facility] Albumin Level 4.5 3.5 - 5.0 g/dL [facility] Alkaline Phosphatase 79 39 - 117 U/L [facility] 09/07/2024 6:25 PM EDT 09/07/2024 6:28 PM EDT us Generic External Data Provider LAB BLOOD ORDERAB LES Final Result [facility] [address] [place] [address] [phone] * US Scrotum (08/24/2024 4:04 PM EDT) Anatomical Region Laterality Modality Body Ultrasound 08/24/2024 4:04 PM EDT Narrative 08/25/2024 7:17 AM EDT [address] [address] Ultrasound Report Signed Patient: Carlos Meehan MR#: [id number] : 1975 Acct:[id number] Age/Sex: 48 / M ADM Date: 08/24/24 Loc: HO.US Attending Dr: Jade Gonzalez MD Ordering Physician: Jade Laguerre MD Date of Service: 08/24/24 Procedure(s): US scrotum Accession Number(s): [id number] cc: Jade Laguerre MD EXAMINATION: US SCROTUM [...] Barrett Toussaint MD 08/25/2024 07:14 AM EDT Dictated By: Barrett Toussaint MD Signed By: <Electronically signed by Barrett Toussaint MD in OV> 08/25/24 0714 DD/ 160 TD/TT: 08/24/24 1610 Information Systems Supervisor: Procedure Note Donotuseinterpreter, Image - 08/25/[address] [address] Ultrasound Report Signed Patient: Yuli Meehan#: [id number] : 1975Acct:[id number] Age/Sex: 48 / MADM Date: 08/24/24 Loc: HO.US Attending Dr: Jade Gonzalez MD Ordering Physician: Jade Laguerre MD Date of Service: 08/24/24 Procedure(s): US scrotum Accession Number(s): [id number] cc: Jade Laguerre MD EXAMINATION: US SCROTUM [...] Barrett Toussaint MD 08/25/2024 07:14 AM EDT Dictated By: Barrett Toussaint MD Signed By: <Electronically signed by Barrett Toussaint MD in OV> 08/25/24 0714 DD/ 160 TD/TT: 08/24/24 1610 Information Systems Supervisor: us Jade Gonzalez MD IMG US PROCEDURES Fin al Result * Albumin, Random Urine W/Creatinine (07/09/2024 12:20 PM EDT) Creatinine, Urine 143.39 mg/dL [facility] Microalbumin Urine 18.0 mg/L [facility] Microalbum Creatinine Ratio Ur 12.5 <30 ug/mg cr [facility] Comment:Albumin/Creatinine R atio Reference Ranges: Normal: < 30 ug/mg creatinine Microalbuminuria: 30 - 300 ug/mg creatinineClinical Albuminuria: > 300 ug/mg creatinine Urine (Urine, Random) 07/09/2024 12:20 PM EDT 07/09/2024 1:03 PM EDT us Jade Gonzalez MD LAB URINE ORDERABLES Final Result [facility] [address] [place] [phone] * (ABNORMAL) Lipid Panel, Standard (07/09/2024 11:20 AM EDT) Triglycerides 371(H) <150 mg/dL [facility] Comment:Desirable Triglyceri de: less than 150 mg/dLBorderline High Triglyceride 150-199 mg/dLHigh Triglyceride: 200-499 mg/dLVery High Triglyceride: greater than or equal to 5OO mg/dL Cholesterol 258(H) <200 mg/dL [facility] Comment:Desirable Cholestero l: less than 200 mg/dLBorderline High Cholesterol: 200-239 mg/dLHigh Cholesterol: greater than 239 mg/dL LDL Cholesterol Calculated 147(H) <100 mg/dL [facility] Comment:Desirable LDL: less than 100 mg/dLNear Optimal/Above Optimal LDL: 110- 129 mg/dLBorderline High LDL: 130-159 mg/dLHigh LDL: 160-189 mg/dLVery High LDL: greater than or equal to 190 mg/dL HDL Cholesterol 37(L) >40 mg/dL [facility] Comment:Desirable HDL: great er than 40 mg/dL Note: This HDL assay may give artificially low results in patients with liver disease. Blood Venous blood specimen / Unknown 07/09/2024 11:20 AM EDT 07/09/2024 1:21 PM EDT Jade Gonzalez MD LAB BLOOD ORDERABLES Final Result Performing Organization Address [facility] Co de Phone Number [facility] [address] [place] [phone] * Hepatitis C Antibody with Reflex to HCV, RNA, Quantitative, Real-Time PCR (04/14/2023 11:36 AM EST) Hepatitis C Antibody Nonreactive Nonreactive [facility] Comment:Antibodies to HCV no t detected; does not exclude early acuteHCV infection. Blood Venous blood specimen / Unknown 04/14/2023 11:36 AM EST 04/14/2023 1:34 PM EST Jade Gonzalez MD LAB BLOOD ORDERABLES Final Result Performing Organization Address [facility] de Phone Number [facility] [address] [place] [phone] * HIV-1/2 Antigen and Antibodies, Fourth Generation, with Reflexes (04/14/2023 11:36 AM EST) HIV AB/AG Nonreactive Nonreactive [facility] Comment:HIV-1 p24 Ag and/or HIV-1/HIV-2 Ab not detected.A test result that is nonreactive does not exclude thepossibility of exposure to or infection with HIV-1 and/orHIV-2. Nonreactive results in this assay for individualswith prior exposure to HIV-1 and/or HIV-2 may be due toantigen and antibody levels that are below the limit ofdetection of this assay.[employer] HIV Ag/Ab Combo assay result andsupplemental assay results should be interpreted inconjunction with the patient's clinical presentation,history and other laboratory results. If the results areinconsistent with clinical evidence, additional testing issuggested to confirm the result. Blood Venous blood specimen / Unknown 04/14/2023 11:36 AM EST 04/14/2023 1:34 PM EST us Jade Gonzalez MD LAB BLOOD ORDERABLES Final Result [facility] [address] [place] [phone] [phone] from Last 3 Months or Most Recently Relevant to Health Maintenance Insurance [employer] Care Teams [employer] Specialist Relationship Specialty Start Date End Date Jade Laguerre MD [address] [place] [phone] PCP - General Internal Medicine 05/27/24
[2024-11-16 14:00] VITALS: PULSE 67; O2SAT 98
== END 2024-11-16 12:44 | disposition home or self-care (01) ==
LOC: HO.RESP 12:43
PROVIDERS: PCP Internal Medicine; Visit Provider Internal Medicine
DX: R06.02 Shortness of breath (principal); R07.9 Chest pain, unspecified
CPT/HCPCS: 94010; 94640; 94727; 94729

== ENCOUNTER → 2024-11-16 12:57 | Outpatient (BNV) | payer OTHER, SELFPAY | PROVIDERS: PCP Internal Medicine; Visit Provider Internal Medicine Pulmonary Disease | DX: R07.9 Chest pain, unspecified (principal); R06.02 Shortness of breath | CPT/HCPCS: 94060; 94727; 94729 ==

== ENCOUNTER 2024-11-26 16:50 | Emergency (ER) | payer OTHER, SELFPAY ==
--- NOTE | ~2024-11-26 | XR_ITS ---
CLINICAL HISTORY: pain 4 view left knee Comparison: None provided Findings: Bones intact. No dislocations. No significant arthritic change or erosions. No joint effusion. No radiopaque foreign body. IMPRESSION: 1. No acute findings. This document has been electronically signed by: Joan Williamson MD on 11/26/2024 17:33:58
[2024-11-26 17:00] VITALS: BP 116/57; PULSE 88; RESP 16; TEMP 36.4; O2SAT 98; BMI 32.1
--- NOTE | 2024-11-26 17:03 | ED.GENADULT ---
HPI - General Adult General Chief complaint: Extremity Injury, Lower Stated complaint: left knee pain Time Seen by Provider: 11/26/24 17:37 Source: patient, RN notes reviewed and old records reviewed Mode of arrival: ambulatory Limitations: no limitations History of Present Illness ED Provider: Gaby HPI narrative: 49-year-old male presents for evaluation of left knee pain. Patient reports pain for the last 4 days. His pain started after he was lifting weights on Friday. Denies any falls or twisting injuries. He reports a he walks frequently because does not have a car He has not tried any medications to help alleviate his symptoms. He denies any leg swelling Related Data Home Medications ?Medication ?Instructions ?Recorded ?Confirmed alcohol swabs (Alcohol Prep Pads) pad topical DAILY 11/01/24 11/01/24 atorvastatin 40 mg tablet 40 mg PO DAILY 11/01/24 11/01/24 dulaglutide 1.5 mg/0.5 mL mg subcut QWEEK 11/01/24 11/01/24 subcutaneous pen injector (Trulicity) empagliflozin 10 mg tablet 10 mg PO DAILY 11/01/24 11/01/24 (Jardiance) gabapentin 300 mg capsule 300 mg PO TID 11/01/24 11/01/24 lancets 33 gauge (TRUEplus Lancets) #100 ea 11/01/24 11/01/24 metformin 1,000 mg tablet 1,000 mg PO 11/01/24 11/01/24 trazodone 50 mg tablet 50 mg PO BEDTIME 11/01/24 11/01/24 Previous Rx's ?Medication ?Instructions ?Recorded omeprazole 40 mg capsule,delayed 40 mg PO DAILY #30 caps 09/07/24 release Allergies Allergy/AdvReac Type Severity Reaction Status Date / Time Penicillins Allergy Intermediate Hives Verified 11/26/24 17:01 Review of Systems Musculoskeletal: Musculoskeletal: Reports arthralgias, Reports joint swelling and Reports limited range of motion PMFSH Social History Social History Alcohol intake: former Advance Directives: No Advance Directives Information Provided: Yes Physical Exam ED Vital Signs: Vital Signs - 24 hr 11/26/24 17:00 Temperature 97.6 F Pulse Rate 88 Respiratory Rate 16 Blood Pressure 116/57 L Pulse Oximetry 98 Oxygen Delivery Method Room Air BMI result Body Mass Index 32.1 Const General: healthy appearing, comfortable, no acute distress, alert and awake Nutritional Appearance: well nourished Orientation/consciousness: patient oriented x3 HENMT Head: Yes normocephalic and Yes atraumatic Eyes Eyelids: Yes eyelids normal Conjunctivae: conjunctivae normal Sclerae: sclerae normal Corneas: corneas normal Pupils: Equal, round and reactive pupils present EOM: EOMs intact bilaterally Neck Neck: Yes full ROM Resp Effort & Inspection: normal respiratory effort, able to speak in complete sentences and not labored Skin General skin exam: elasticity normal Neuro General: patient oriented x3 Cranial nerves: Yes Equal, round and reactive pupils present and Yes Bilaterally intact EOM present Cognition (Neuro): normal cognition Extrem Other: There was no obvious deformity to the left knee. No significant joint effusion. The patient has full range of motion with flexion-extension of the knee. Negative valgus and varus strain. No calf tenderness. Negative Homans sign Course Course Course Narrative: RME, this is a rapid medical exam performed by Kin Griffin please refer to primary provider for complete H&P- 49 year old male presents for evaluation of left knee pain after injuring himself while deadlifting 4 days ago. He reports that he does a lot of walking because he does not drive. Plan for X-ray Medical Decision Making Medical Decision Making MDM Narrative: 49-year-old male presents for evaluation of left knee pain after lifting heavy weights. His pain is most likely from overuse injury. There was no twisting injury to suggest ligamentous injury. No evidence of infectious cause. That has no significant edema. X-ray is normal without evidence of joint effusion. Plan for symptomatic care only. There was no evidence of calf pain tenderness or swelling to suggest DVT Differential Diagnosis Differential Diagnoses: The differential diagnosis associated with the presentation includes Knee sprain Contusion Arthritis Meniscus injury Radiology Impression Discussion of test interpretation with radiology: I have reviewed the radiologist's reading. Radiologist Impression: Findings: Bones intact. No dislocations. No significant arthritic change or erosions. No joint effusion. No radiopaque foreign body. IMPRESSION: 1. No acute findings. This document has been electronically signed by: Joan Williamson MD on 11/26/2024 17:33:58 Discharge Plan Discharge Clinical Impression: Strain of left knee Patient Disposition: Home, Self-Care Instructions: Knee Sprain (ED) Additional Instructions: Your x-ray did not show any abnormality to your left knee. I recommend avoiding excessive walking or heavy lifting for the next week. Apply ice to the sore area every 4 hours for 10-15 minutes pain I also recommend using ibuprofen. You may follow up with physical therapy. I sent a referral to [facility] physical therapy. You may call tomorrow to schedule an appointment Prescriptions: No Action omeprazole 40 mg capsule,delayed release(DR/EC) 40 mg PO DAILY Qty: 30 0RF atorvastatin 40 mg tablet 40 mg PO DAILY trazodone 50 mg tablet 50 mg PO BEDTIME metformin 1,000 mg tablet 1,000 mg PO gabapentin 300 mg capsule 300 mg PO TID alcohol swabs [Alcohol Prep Pads] Pads, Medicated topical DAILY (DME) lancets [TRUEplus Lancets] 33 gauge misc See Rx Instructions .ROUTE DAILY Qty: 100 Rx Instructions: As directed Jardiance 10 mg tablet 10 mg PO DAILY Trulicity 1.5 mg/0.5 mL pen injector subcut QWEEK Referrals: Physical Therapy - [facility] [Outside] Referral Note: left knee and back pain Print Language: Icelandic
== END 2024-11-26 18:00 | disposition home or self-care (01) ==
PROVIDERS: Emergency Provider Emergency Medicine
DX: S86.912A Strain of unspecified muscle(s) and tendon(s) at lower leg level, left leg, initial encounter (principal); M25.562 Pain in left knee; X58.XXXA Exposure to other specified factors, initial encounter; Y93.9 Activity, unspecified; Y92.9 Unspecified place or not applicable; Y99.8 Other external cause status
CPT/HCPCS: 73564; 99281; 99283

== ENCOUNTER → 2024-11-26 17:03 | Outpatient (BNV) | payer OTHER, SELFPAY | PROVIDERS: Emergency Provider Emergency Medicine; Visit Provider Radiology Diagnostic Radiology | DX: M25.562 Pain in left knee (principal) | CPT/HCPCS: 73564 ==

== ENCOUNTER 2024-11-29 13:44 | Outpatient (AMB) | payer OTHER, SELFPAY ==
--- NOTE | 2024-11-29 14:05 | A.OFFVIS_ITS ---
Vital Signs 11/29/24 14:14 Height 5 ft 11 in Weight 230 lb BMI 32.1 BP 118/64 Blood Pressure Location Rt brachial Position Sitting Pulse 82 Pulse Source Pulse Oximeter Pulse Oximetry (%) 96 Oxygen Delivery Method Room Air Intake Visit Reasons: [place] screening. Hx of polyps. Intake Note: New pt for recall colo screening. Prev sigmoidoscopy showed polyp x1 in [place]. CC: Pt denies any GI sx or concerns at this time. Pt denies any FMHx but does state that his siblings have had polypectomies as well. Computator Required: No Accompanied by: Self / Same As Patient Allergies Penicillins Allergy (Intermediate, Verified 11/29/24 14:10) Hives HPI HPI [place] screening. Hx of polyps.: Details: 49 year old? male with past medical history of diabetes, depression, and anxiety, hypercholesteremia is here today for pre colonoscopy screening.? Patient was sent to us by his PCP.? ? Patient had colonoscopy on 09/16/2023 in [place]. Over 2 cm tubular adenoma in sigmoid colon found. Patient was supposed to repeat colonoscopy in 1 year. Patient denies any gastrointestinal symptoms in the past or at present.? Denies any of gastrointestinal disease or CRC.? Denies history of difficulty with sedation or anesthesia in the past.? Negative for history of sleep apnea.? Denies any history of cardiac, renal, pulmonary, or hepatic disease.?? No history of infectious? diseases like hepatitis A, B, C, HIV or tuberculosis.? Patient is not on any anticoagulation [facility] Medical History (Updated 11/29/24 @ 14:16 by SILVINA Watts) Anxiety and depression Diabetes type 2, controlled Hyperlipidemia Surgical History (Updated 11/29/24 @ 14:13 by SILVINA Watts) Hx of colonoscopy Social History Alcohol intake: former Review of Systems Const Denies weight gain and Denies weight loss ENT Reports no additional complaints, Denies dysphagia and Denies odynophagia Card Reports no additional complaints Resp Reports no additional complaints GI Denies abdominal pain, Denies belching, Denies melena, Denies bloating, Denies change in bowel habits, Denies dysphagia, Denies excessive flatus, Denies dyspepsia, Denies heartburn, Denies diarrhea, Denies loose stools, Denies nausea, Denies odynophagia and Denies vomiting Reports no additional complaints Musc Reports no additional complaints Neuro Reports no additional complaints Psych Reports no additional complaints Endo Reports no additional complaints Physical Exam Vital Signs: Last Vital Signs Pulse 82 11/29/24 14:14 BP 118/64 11/29/24 14:14 Pulse Ox 96 11/29/24 14:14 Oxygen Delivery Method Room Air 11/29/24 14:14 BMI result Body Mass Index 32.1 Const General: healthy appearing, no acute distress and well developed Nutritional Appearance: well nourished Orientation/consciousness: patient oriented x3 Resp Effort & Inspection: normal respiratory effort, able to speak in complete sentences, no tracheal deviation and symmetric chest movement Auscultation: clear to auscultation bilaterally Cardio Rate: regular rate GI Inspection: Yes normal to inspection and No distended Palpation (GI): Soft to palpation, not firm, nontender and No hepatosplenomegaly present Auscultation: normal bowel sounds General: Yes no CVA tenderness Back/Spine/Pelvis Back: no CVA tenderness Skin General skin exam: elasticity normal, turgor normal and dry skin Neuro General: patient oriented x3 Psych Appearance: grossly normal Mental Status: mental status grossly normal Assessment & Plan Assessment & Plan (1) Screen for colon cancer: Code(s): Z12.11 - Encounter for screening for malignant neoplasm of colon Plan Patient denies any GI, cardiac or respiratory symptoms.? Denies any issues with anesthesia in the past.? Denies any history of sleep apnea.? No history infectious diseases in the past or present.? Not on any anticoagulation therapy.? No family history of colon cancer. Diagnosed with tubular adenoma on colonoscopy in September of 2023.? Patient denies melena, hematochezia, unintentional weight loss or ribbon like stools.? Discussed at length the pre-procedure,? prep, diet & medications as well as what to expect prior, during and after the procedure.?? Stressed the importance of good bowel prep.? Recommended the use of Vaseline or Calmoseptine OTC & baby wipes with bowel movements to promote comfort.? ?Patient verbalizes understanding and agrees to plan of care.? He was given the opportunity to ask questions and all questions answered.? We will see him after the procedure.? Medications: New bisacodyl (Dulcolax (bisacodyl)) take 4 tabs at noon the day before your colonoscopy 20 mg (4 x 5 mg) PO ONCE 4 tabs 0RF constipation 1 day Z12.11 - Encounter for screening for malignant neoplasm of colon polyethylene glycol 3350 (Miralax) As directed by gastroenterology department at [facility] 238 grams PO ONCE 238 grams 0RF Z12.11 - Encounter for screening for malignant neoplasm of colon Coding Level of Care Code New Pt Level 3 (19065) Diagnoses Screen for colon cancer Z12.11 Time Spent (min) 40 Comment 30 minutes spent with patient and additional 10 minutes spent reviewing his records
[2024-11-29 14:14] VITALS: BP 118/64; PULSE 82; O2SAT 96; BMI 32.1
--- OUTSIDE RECORDS SUMMARY | 2024-11-29 15:03 | XMS_ITS | Encounter Summary ---
Author Organization [employer] Address [address] [facility] [address] [facility] [address] [place] [address] Care Team Providers Care [employer] Name Role Phone Jade Laguerre MD Primary Care Provide r Encounter Details Date Type Department Care Team ([facility] st Contact Info) Description 08/28/2024 Orders Only [facility] [address], [place] [phone] Jade Laguerre MD [address] [place] [address] Social History Tobacco Use Types Packs/Day Years [...] as of this encounter Plan of Treatment Upcoming Encounters Date Type Department Care Team (Late st Contact Info) Description 01/10/2025 3:30 PM EDT Office Visit [facility] [address] [place] [address] Jade Laguerre MD [address] [place] [address] documented as of this encounter Visit Diagnoses Not on filedocumented in this encounter Additional Health Concerns Assessment Noted Time PHQ-9 Depression Total Score: 21 024 1:26 PM EST documented as of this encounter Care Teams [employer] Relationship Specialty Start Date End Date Jade Laguerre MD [address] [place] [id number] PCP - General Internal Medicine 05/27/24 documented as of this encounter
--- OUTSIDE RECORDS SUMMARY | 2024-11-29 15:03 | XMS_ITS | Clinical Summary ---
Author Organization [address] [facility] Address [address] [place] [address] Phone Care Team Providers Care Maintenance Mechanic Helper Name Role Phone Jade Laguerre MD Primary [...] PM EDT Office Visit [facility] [place] [address] [phone] Roney Turcios DPM [address] [phone] Health Maintenance Due Date Last Done Comments [...] to complete this topic Insurance [place] [facility] Care Teams Maintenance Mechanic Helper Relationship Specialty Start Date End Date Jade Laguerre MD [address] [phone] PCP - General Internal Medicine 10/18/21
--- OUTSIDE RECORDS SUMMARY | 2024-11-29 15:03 | XMS_ITS | Clinical Summary ---
Author Organization [facility] Address [address] [facility] [address] [place] [phone] Phone Care Team Providers Care Utility Tech Name Role Phone Pcp, Unknown Primary Care [...] file Medical Devices Not on file Insurance [facility] [employer] Care Teams Utility Tech Relationship Specialty Start Date End Date Pcp, Unknown PCP - General 08/28/21 Additional Source Comments The information contained in this document represents components of the legal health record. It is not the complete legal health record.[facility]
--- OUTSIDE RECORDS SUMMARY | 2024-11-29 15:03 | XMS_ITS | Clinical Summary ---
Author Organization [employer] Address [address] [place] [address] [address] [place] [address] Care Team Providers Care Executive Vp Name Role Phone Jade Laguerre MD Primary [...] hyperglycemia, without long-term current use of insulin ([facility] [place]) Inject 0.75 mg under the skin 1 (one) time per week. 2 mL 3 025 Active FREESTYLE LITE test stripIndications: Type 2 diabetes mellitus with hyperglycemia, without long-term current use of insulin ([facility] [place]) Use to test blood sugar 1 times daily 100 each 12 025 2025 Active Blood Glucose Monitoring Suppl (FreeStyle Gage Lite) w/Device kitIndications:Ty pe 2 diabetes mellitus with hyperglycemia, without long-term current use of insulin ([facility] [place]) Use to test blood sugar 1 times daily 1 kit 025 Active FREESTYLE LITE test stripIndications: Type 2 diabetes mellitus with hyperglycemia, without long-term current use of insulin ([facility] [place]) Use to test blood sugar 1 times daily 100 each 12 025 2025 Active Lancets miscIndications:T ype 2 diabetes mellitus with hyperglycemia, without long-term current use of insulin ([facility] [place]) Use to test blood sugar 1 times daily 100 each Active Alcohol Swabs 70 % padsIndications:T ype 2 diabetes mellitus with hyperglycemia, without long-term current use of insulin ([facility] [place]) Use to test blood sugar 2 times daily 100 each Active Blood Glucose Monitoring Suppl (FreeStyle Gage Lite) w/Device kitIndications:Ty pe 2 diabetes mellitus with hyperglycemia, without long-term current use of insulin ([facility] [place]) Use to test blood sugar 2 times daily 1 kit Active traZODone (Desyrel) 50 MG tabletIndications :Insomnia, unspecified type TAKE 1 TABLET BY MOUTH EVERY DAY AT BEDTIME 30 tablet 2 Active empagliflozin (Jardiance) 10 MGIndications:Typ e 2 diabetes mellitus with hyperglycemia, without long-term current use of insulin ([facility] [place]) Take 1 tablet (10 mg) by mouth Once per day. 30 tablet 2025 Active gabapentin (Neurontin) 300 MG capsuleIndication s:Diabetic polyneuropathy associated with type 2 diabetes mellitus ([facility] [place]) Take 1 capsule (300 mg) by mouth 3 times daily. 90 capsule 2025 Active diphenhydrAMINE (BENADryl) 12.5 mg split tablet Take 25 mg by mouth if needed at bedtime for sleep. Active omeprazole (PriLOSEC) [address] capsule Take 40 mg by mouth before breakfast. Active metFORMIN (Glucophage) 1000 MG tabletIndications :Type 2 diabetes mellitus with hyperglycemia, without long-term current use of insulin ([facility] [place]) TAKE 1 TABLET TWICE DAILY IN THE MORNING AND IN THE EVENING WITH MEALS 180 tablet Active atorvastatin (Lipitor) 40 MG tabletIndications :Dyslipidemia TAKE 1 TABLET EVERY DAY 90 tablet Active Alcohol Swabs (Alcohol Prep) 70 % padsIndications:T ype 2 diabetes mellitus with hyperglycemia, without long-term current use of insulin ([facility] [place]) USE DIRECTED TO TEST BLOOD SUGAR ONCE DAILY 100 each Active TRUEplus Lancets 33G miscIndications:T ype 2 diabetes mellitus with hyperglycemia, without long-term current use of insulin (CMS/HCC) USE DIRECTED TO TEST BLOOD SUGAR ONCE DAILY 100 each 025 Active Trulicity 1.5 MG/0.5ML solution auto-injectorIndi cations:Type 2 diabetes mellitus with hyperglycemia, without long-term current use of insulin (CMS/HCC) INJECT ONE PEN (=1.5MG) SUBCUTANEOUSLY ONCE A WEEK DIRECTED 2 mL 025 Active Blood Glucose Monitoring Suppl (Accu-Chek Guide) w/Device kitIndications:Ty pe 2 diabetes mellitus with hyperglycemia, without long-term current use of insulin (CMS/HCC) Use to monitor blood sugar at home once daily 1 kit Active glucose blood (Accu-Chek Guide Test) test stripIndications: Type 2 diabetes mellitus with hyperglycemia, without long-term current use of insulin (CMS/HCC) Use to monitor blood sugar at home once daily 50 each 025 2025 Active Dulaglutide (Trulicity) 1.5 MG/0.5ML solution auto-injectorIndi cations:Type 2 diabetes mellitus with hyperglycemia, without long-term current use of insulin ([facility] [place]) Inject 1.5 mg under the skin 1 [...] organization. Date Type Department Care Team Description 11/26/2024 Orders Only [facility] External Provider, [facility] 11/16/2024 Refill [facility] [address] [place] [address] Alyssa Persaud RN Type 2 diabetes mellitus with hyperglycemia, without long-term current use of insulin ([facility] [place]) 11/10/2024 Telephone [facility] [address] [place] [address] Jade Laguerre MD Prior Authorization ([facility]: Trulicity 1.5 MG) 11/10/2024 Refill [facility] [address] [place] [address] Jade Laguerre MD Type 2 diabetes mellitus with hyperglycemia, without long-term current use of insulin (CMS/HCC) 11/01/2024 Telephone [facility] [address] [place] [address] Jade Laguerre MD Referral 10/19/2024 Telephone [facility] [address], [place] [phone] Jade Laguerre MD 10/18/2024 Refill [facility] [address], [place] [phone] Jade Laguerre MD Type 2 diabetes mellitus with hyperglycemia, without long-term current use of insulin (CMS/HCC); Dyslipidemia 10/15/2024 2:30 PM EDT Office Visit [facility] [address] [place] [address] Eleonora Gaviria, CECE Type 2 diabetes mellitus without ophthalmic manifestations ([facility] [place]) (Primary Dx); Presbyopia 10/15/2024 9:45 AM EDT Office Visit [facility] [address] [place] [phone] Jade Laguerre MD Type 2 diabetes mellitus with hyperglycemia, without long-term current use of insulin ([facility] [place]); Diabetic polyneuropathy associated with type 2 diabetes mellitus ([facility] [place]); Polyp of sigmoid colon, unspecified type; Mixed anxiety and depressive disorder 10/15/2024 Travel 10/14/2024 Telephone [facility] [address] [place] [phone] Jade Laguerre MD Insurance 10/14/2024 Telephone [facility] [address] [place] [phone] Tutu [place] 10/13/2024 Refill [facility] [address] [place] [phone] Jade Laguerre MD Insomnia, unspecified type; Type 2 diabetes mellitus with hyperglycemia, without long-term current use of insulin ([facility] [place]) 10/11/2024 Telephone [facility] [address] [place] [phone] Jade Laguerre MD No Show 10/07/[address] [address] Jade Laguerre MD chart prep 10/01/2024 Patient Outreach [facility] [address] [place], [place] [phone] Jade Laguerre MD Pre-visit Planning (SDOH was already completed) 09/09/2024 Telephone [facility] [address] [place] [phone] Jade Laguerre MD Referral 09/07/2024 Orders Only GENERIC EXTERNAL DATA DEPARTMENT Provider, Generic External Data from Last 3 Months Immunizations Immunization Administration [...] with others, in a hotel, in a long term, living outside on the street, on a [...] Description 01/10/2025 3:30 PM EDT Office Visit [facility] [address] [place] [address] Jade Laguerre MD [address] [place], [place] [phone] Health Maintenance Due Date Last Done Comments [...] Procedure Name Priority Date/Time Associated Diagnosis Comments XR KNEE 4+ VIEWS LEFT Routine 11/26/2024 5:33 PM EDT POCT GLYCATED HEMOGLOBIN, TOTAL Routine 10/15/2024 9:57 AM EDT Type 2 diabetes mellitus with hyperglycemia, without long-term current use of insulin ([facility] [place]) POCT GLUCOSE Routine 10/15/2024 9:57 AM EDT [...] QL NAAT Routine 09/07/2024 6:25 PM EDT ALBUMIN, RANDOM URINE W/CREATININE Routine [...] Recently Relevant to Health Maintenance Results * XR Knee 4+ Views Left (11/26/2024 5:33 PM EDT) Anatomical Region Laterality Modality Lower Extremities, Knee Left [facility] 11/26/2024 5:33 PM EDT Narrative 11/26/2024 5:35 PM EDT [address] [address] XRay Report Signed Patient: Carlos Meehan MR#: [id number] 666 : 1975 Acct:[id number] Age/Sex: 49 / M ADM Date: 11/26/24 Loc: HO.ED Attending Dr: Ordering Physician: Gilberto Griffin Date of Service: 11/26/24 Procedure(s): XR knee LT 4V Accession Number(s): [id number] cc: [facility]; Gilberto Griffin CLINICAL HISTORY: pain 4 view left knee Comparison: None provided Findings: Bones intact. No dislocations. No significant arthritic change or erosions. No joint effusion. No radiopaque foreign body. IMPRESSION: 1. No acute findings. This document has been electronically signed by: Joan Williamson MD on 11/26/2024 17:33:58 Dictated By: Joan Williamson MD Signed By: <Electronically signed by Joan Williamson MD in OV> 11/26/24 1734 DD/ 173 TD/TT: 11/26/24 173 Life Skills Coordinator: Procedure Note Donotuseinterpreter, Image - 11/26/[address] [address] XRay Report Signed Patient: Frieda MeehanR#: [id number] 666 : 1975Acct:[id number] Age/Sex: 49 / MADM Date: 11/26/24 Loc: HO.ED Attending Dr: Ordering Physician: Gilberto Griffin Date of Service: 11/26/24 Procedure(s): XR knee LT 4V Accession Number(s): [id number] cc: [facility]; Gilberto Girffin CLINICAL HISTORY: pain 4 view left knee Comparison: None provided Findings: Bones intact. No dislocations. No significant arthritic change or erosions. No joint effusion. No radiopaque foreign body. IMPRESSION: 1. No acute findings. This document has been electronically signed by: Joan Williamson MD on 11/26/2024 17:33:58 Dictated By: Joan Williamson MD Signed By: <Electronically signed by Joan Williamson MD in OV> 11/26/241733 DD/ 32 TD/TT: 11/26/241732 Life Skills Coordinator: [facility] External Provider IMG XR PROCEDURES Final Result * (ABNORMAL) POCT HGB A1C (10/15/2024 9:57 AM EDT) Hemoglobin A1C 9.3(A) 4.0 - 5.7 % QC Media Lot # [id number] Lot# Expiration Date Blood 10/15/2024 9:57 AM EDT Result [facility] Jade Gonzalez MD POINT OF CARE TEST EN TER/EDIT ORDERABLES Final Result * (ABNORMAL) POCT Glucose (10/15/2024 9:57 AM EDT) Glucose Blood, POC 296(A) 60 - 200 mg/dL QC Media Lot # [id number] Lot# Expiration Date Blood Capillary blood specimen / Unknown 10/15/2024 9:57 AM EDT Result [facility] Jade Gonzalez MD POINT OF CARE TEST EN TER/EDIT ORDERABLES Final Result * High Sensitivity Troponin I (09/07/2024 6:25 PM EDT) TROPONIN I HIGH SENSITIVITY <2.7 <3.5 - 35.0 ng/L [facility] Comment:The [place]ett[place] high sens itivity Troponin-I results should beused in conjunction with other diagnostic information suchas ECG, clinical observations and information, and patientsymptoms to aid in the diagnosis of MT. 09/07/2024 6:25 PM EDT 09/07/2024 6:28 PM EDT us Generic External Data Provider LAB BLOOD ORDERAB LES Final Result Performing Organization Address City/[facility]/ZIP Co de Phone Number [facility] [address] [place] [phone] * TSH with Reflex to Free T4 (09/07/2024 6:25 PM EDT) TSH reflex Free T4 1.88 0.32 - 4.0 uIU/mL [facility] 09/07/2024 6:25 PM EDT 09/07/2024 6:28 PM EDT Generic External Data Provider LAB BLOOD ORDERAB LES Final Result Performing Organization Address [facility] Co de Phone Number [facility] [address] [place] [phone] * SARS-CoV-2 RNA, Influenza A/B, and RSV RNA, Ql NAAT (09/07/2024 6:25 PM EDT) Influenza A PCR NEGATIVE Negative [facility] Influenza B PCR NEGATIVE Negative [facility] Resp Syncy Virus RNA Qual PCR NEGATIVE Negative [facility] SARS COV2 PCR NEGATIVE Negative [facility] Comment:All test results mus t [...] use by authorized laboratories.Testing performed on the [employer] GeneXpert utilizingreal-time RT-PCR.All SARS CoV2 and positive influenza A/B results arereported to [facility]. 09/07/2024 6:25 PM EDT 09/07/2024 6:28 PM EDT us Generic External Data Provider LAB MICROBIOLOGY - GENERAL ORDERABLES Final Result [facility] [address] [place] [phone] * (ABNORMAL) CBC auto differential (09/07/2024 6:25 PM EDT) White Blood Count 9.8 4.8 - 10.8 X10*3/uL [facility] Red Blood Count 4.87 4.60 - 5.80 X10*6/uL [facility] Hemoglobin 14.1 14.0 - 18.0 g/dl [facility] Hematocrit 40.2(L) 42.0 - 52.0 % [facility] Mean Corpuscular Volume 82.5 80.0 - 98.0 fL [facility] Mean Corpuscular Hemoglobin 29.0 27.0 - 33.0 pg [facility] Mean Corpuscular HGB Conc 35.1 31.0 - 36.0 g/dl [facility] Red Cell Distribution Width 12.0 11.0 - 16.0 % [facility] Platelet Count 267 160 - 400 X10*3/uL [facility] Mean Platelet Volume 10.2 9.4 - 12.4 fL [facility] Neutrophils Percent Auto 57.1 45 - 73 % [facility] Imm Gran Pct Auto 0.3 0.0 - 0.4 % [facility] Lymphocytes Percent Auto 30.7 20 - 40 % [facility] Monocytes Percent Auto 7.3 2 - 11 % [facility] Eosinophils Percent Auto 3.9 0 - 4 % [facility] Basophils Percent Auto 0.7 0 - 2 % [facility] NRBC Pct Auto 0.0 0.0 - 0.2 /100WBC [facility] Neutrophils Absolute Auto 5.6 2.0 - 8.3 x10*3/uL [facility] Imm Gran Abs Auto 0.03 0.00 - 0.03 X10*3/uL [facility] Lymphocytes Absolute Auto 3.0 1.2 - 4.9 X10*3/uL [facility] Monocytes Absolute Auto 0.7 0.1 - 1.2 X10*3/uL [facility] Eosinophils Absolute Auto 0.4 0.0 - 0.4 X10*3/uL [facility] Basophils Absolute Auto 0.1 0.0 - 0.2 X10*3/uL [facility] NRBC Abs Auto 0.000 0.0 - 0.012 X10*3/uL [facility] 09/07/2024 6:25 PM EDT 09/07/2024 6:28 PM EDT us Generic External Data Provider LAB BLOOD ORDERAB LES Final Result Performing Organization Address [facility]/ZIP Co de Phone Number [facility] [address] [place] [phone] * Magnesium (09/07/2024 6:25 PM EDT) Magnesium 1.9 1.6 - 2.6 mg/dL [facility] 09/07/2024 6:25 PM EDT 09/07/2024 6:28 PM EDT us Generic External Data Provider LAB BLOOD ORDERAB LES Final Result Performing Organization Address City/[facility]/ZIP Co de Phone Number [facility] [address] [place] [phone] * Lipase (09/07/2024 6:25 PM EDT) Lipase 21 8 - 78 U/L [facility] 09/07/2024 6:25 PM EDT 09/07/2024 6:28 PM EDT us Generic External Data Provider LAB BLOOD ORDERAB LES Final Result Performing Organization Address City/[facility]/ZIP Co de Phone Number [facility] [address] [place] [phone] * (ABNORMAL) Comprehensive Metabolic Panel (09/07/2024 6:25 PM EDT) Sodium 135 135 - 145 mmol/L [facility] Potassium 4.3 3.3 - 5.1 mmol/L [facility] Chloride 98 96 - 108 mmol/L [facility] Carbon Dioxide 30(H) 22 - 29 mmol/L [facility] Anion Gap 11(L) 12 - 20 [facility] Urea Nitrogen (BUN) 11 9 - 16 mg/dL [facility] Creatinine, Serum 1.02 0.5 - 1.4 mg/dL [facility] Creatinine Clr Calc Pharmacy 111.8 [facility] Comment:eGFR (calculated fro m the MDRD study equation) and eCrCl(calculated from the Cockcroft-Gault equation) are based ondifferent parameters and may not yield comparable results.If eCrCl result is absurd, please check patient'sheight/weight. Estimated Glomerular Filt Rate >60 [facility] Comment:Chronic Kidney Disea se: Estimated GFR < 60 mL/min/1.94v4Pfswre Kidney Disease: Estimated GFR < 15 mL/min/1.73m2 Glucose 282(H) 60 - 115 mg/dL [facility] Calcium 9.3 8.4 - 10.2 mg/dL [facility] Bilirubin, Total 0.5 0.0 - 1.0 mg/dL [facility] Aspartate Amino Transferase 22 5 - 37 U/L [facility] Alanine Aminotransferase 23 0 - 40 U/L [facility] Total Protein 7.6 6.5 - 8.0 g/dL [facility] Albumin Level 4.5 3.5 - 5.0 g/dL [facility] Alkaline Phosphatase 79 39 - 117 U/L [facility] 09/07/2024 6:25 PM EDT 09/07/2024 6:28 PM EDT us Generic External Data Provider LAB BLOOD ORDERAB LES Final Result Performing Organization Address City/State/[facility] Co de Phone Number [facility] [address] [place] [phone] * Albumin, Random Urine W/Creatinine (07/09/2024 12:20 PM EDT) Creatinine, Urine 143.39 mg/dL [facility] Microalbumin Urine 18.0 mg/L [facility] Microalbum Creatinine Ratio Ur 12.5 <30 ug/mg cr [facility] Comment:Albumin/Creatinine R atio Reference Ranges: Normal: < 30 ug/mg creatinine Microalbuminuria: 30 - 300 ug/mg creatinineClinical Albuminuria: > 300 ug/mg creatinine Urine (Urine, Random) 07/09/2024 12:20 PM EDT 07/09/2024 1:03 PM EDT Jade Gonzalez MD LAB URINE ORDERABLES Final Result Performing Organization Address [facility] Co de Phone Number [facility] [address] [place] [phone] * (ABNORMAL) Lipid Panel, Standard (07/09/2024 11:20 AM EDT) Triglycerides 371(H) <150 mg/dL [facility] Comment:Desirable Triglyceri de: less than 150 mg/dLBorderline High Triglyceride 150-199 mg/dLHigh Triglyceride: 200-499 mg/dLVery High Triglyceride: greater than or equal to 5OO mg/dL Cholesterol 258(H) <200 mg/dL [facility] Comment:Desirable Cholestero l: less than 200 mg/dLBorderline High Cholesterol: 200-239 mg/dLHigh Cholesterol: greater than 239 mg/dL LDL Cholesterol Calculated 147(H) <100 mg/dL [facility] Comment:Desirable LDL: less than 100 mg/dLNear Optimal/Above Optimal LDL: 110- 129 mg/dLBorderline High LDL: 130-159 mg/dLHigh LDL: 160-189 mg/dLVery High LDL: greater than or equal to 190 mg/dL HDL Cholesterol 37(L) >40 mg/dL [facility] Comment:Desirable HDL: great er than 40 mg/dL Note: This HDL assay may give artificially low results in patients with liver disease. Blood Venous blood specimen / Unknown 07/09/2024 11:20 AM EDT 07/09/2024 1:21 PM EDT Jade Gonzalez MD LAB BLOOD ORDERABLES Final Result Performing Organization Address [facility] Co de Phone Number [facility] [address] [place] [phone] * Hepatitis C Antibody with Reflex to HCV, RNA, Quantitative, Real-Time PCR (04/14/2023 11:36 AM EST) Hepatitis C Antibody Nonreactive Nonreactive [facility] Comment:Antibodies to HCV no t detected; does not exclude early acuteHCV infection. Blood Venous blood specimen / Unknown 04/14/2023 11:36 AM EST 04/14/2023 1:34 PM EST us Jade Gonzalez MD LAB BLOOD ORDERABLES Final Result Performing Organization Address [facility] de Phone Number [facility] [address] [place] [phone] * HIV-1/2 Antigen and Antibodies, Fourth Generation, with Reflexes (04/14/2023 11:36 AM EST) HIV AB/AG Nonreactive Nonreactive [facility] Comment:HIV-1 p24 Ag and/or HIV-1/HIV-2 Ab not detected.A test result that is nonreactive does not exclude thepossibility of exposure to or infection with HIV-1 and/orHIV-2. Nonreactive results in this assay for individualswith prior exposure to HIV-1 and/or HIV-2 may be due toantigen and antibody levels that are below the limit ofdetection of this assay.The [employer] HIV Ag/Ab Combo assay result andsupplemental assay results should be interpreted inconjunction with the patient's clinical presentation,history and other laboratory results. If the results areinconsistent with clinical evidence, additional testing issuggested to confirm the result. Blood Venous blood specimen / Unknown 04/14/2023 11:36 AM EST 04/14/2023 1:34 PM EST us Jade Gonzalez MD LAB BLOOD ORDERABLES Final Result [facility] [address] [place] [phone] from Last 3 Months or Most Recently Relevant to Health Maintenance Insurance [employer] Care Teams Executive Vp Relationship Specialty Start Date End Date Jade Laguerre MD [address] [place] [address] PCP - General Internal Medicine 05/27/24
--- OUTSIDE RECORDS SUMMARY | 2024-11-29 15:03 | XMS_ITS | Encounter Summary ---
Author Organization [employer] Address [address] [facility] 7t [place] [address] Care Team Providers Care Ad Copy Writer Name Role Phone Jade Laguerre MD Primary Care Provide r Encounter Details Date Type Department Care Team (Late st Contact Info) Description 11/26/2024 Orders Only [facility] External Provider, [facility] Social History Tobacco Use Types Packs/Day Years Used Date Smoking Tobacco: Former Cigarettes Smokeless Tobacco: Never Comments:Quit smoking end of 2023 Depression Answer Date Recorded Patient Health Questionnaire-9 Score 0 10/15/2024 Patient Health Questionnaire-9 Score 0 10/15/2024 Last PHQ-9: Questionnaire Data Not on file 0 10/15/2024 Housing Stability Answer Date Recorded What is your housing situation today? I do not have housing (Staying with others, in a hotel, in a prison, living outside on the street, on a [...] t he electric, gas, oil or water [employer] threatened to shut off services in your [...] Description 01/10/2025 3:30 PM EDT Office Visit [facility] [address] [place] [address] Jade Laguerre MD [address] [place] [address] documented as of this encounter Procedures Procedure Name Priority Date/Time Associated Diagnosis Comments XR KNEE 4+ VIEWS LEFT Routine 11/26/2024 5:33 PM EDT documented in this encounter Results * XR Knee 4+ Views Left (11/26/2024 5:33 PM EDT) Anatomical Region Laterality Modality Lower Extremities, Knee Left [facility] 11/26/2024 5:33 PM EDT Narrative 11/26/2024 5:35 PM EDT [facility] [address] [place] [address] XRay Report Signed Patient: Carlos Meehan MR#: [id number] : 1975 Acct:[id number] Age/Sex: 49 / M ADM Date: 11/26/24 Loc: .ED Attending Dr: Ordering Physician: Gilberto Griffin Date of Service: 11/26/24 Procedure(s): XR knee LT 4V Accession Number(s): [id number] cc: [facility]; Gilberto Griffin CLINICAL HISTORY: pain 4 view [...] in OV> 11/26/241733 DD/ 32 TD/TT: 11/26/241732 Wet Plant Operator: Procedure Note Donotuseinterpreter, Image - 11/26/2024 [place] [address] XRay Report Signed Patient: Yuli Meehan#: [id number] : 1975Acct:[id number] Age/Sex: 49 / MADM Date: 11/26/24 Loc: .ED Attending Dr: Ordering Physician: Gilberto Griffin Date of Service: 11/26/24 Procedure(s): XR knee LT 4V Accession Number(s): [id number] cc: [facility]; Gilberto Griffin CLINICAL HISTORY: pain 4 view [...] in OV> 11/26/241733 DD/ 32 TD/TT: 11/26/241732 Wet Plant Operator: [facility] External Provider IMG XR PROCEDURES Final Result documented in this encounter Visit Diagnoses Not on filedocumented in this encounter Additional Health Concerns Assessment Noted Time PHQ-9 Depression Total Score: 0 10/16/19 9:56 AM EDT documented as of this encounter Care Teams Ad Copy Writer Relationship Specialty Start Date End Date Jade Laguerre MD [address] [place] [address] PCP - General Internal Medicine 05/27/24 documented as of this encounter
== END 2024-11-29 14:52 | disposition home or self-care (01) ==
LOC: HO.HGI 13:44
PROVIDERS: Visit Provider Nurse Practitioner Family
DX: Z01.818 Encounter for other preprocedural examination (principal); Z12.11 Encounter for screening for malignant neoplasm of colon
CPT/HCPCS: S0285

== ENCOUNTER 2024-12-20 11:28 | Day surgery (SDC) | payer OTHER, SELFPAY ==
--- OUTSIDE RECORDS SUMMARY | 2024-12-15 15:15 | XMS_ITS | Encounter Summary ---
Author Organization [employer] Address [address] [place] [address] 7 [place] [address] Care Team Providers Care Telesales Professional Name Role Phone Jade Laguerre MD Primary Care Provide r Reason for Referral * Consultation (Routine) - Pending Review Specialty Diagnoses / Procedures Referred By Yg hunter Referred To Contact Physical Therapy Diagnoses Acute pain of left knee Jade Laguerre MD [address] [place] [address] Phone: tel: fax: Referral ID Status Reason Start Date Expiration Date Visits Requested Visits Authorized [id number] Pending Review Specialty Services Required 12/15/2024 12/15/2025 1 1 * Hospital - Outpatient (Routine) - Pending Review Specialty Diagnoses / Procedures Referred By Yg hunter Referred To Contact Diagnoses Hypersomnia Loud snoring Apneic episode Procedures Polysomnography Jade Laguerre MD [address] [place] [address] Phone: tel: fax: Referral ID Status Reason Start Date Expiration Date V isits Requested Visits Authorized [id number] Pending Review 12/15/2024 12/15/2025 1 1 Reason for Visit * Reason Comments sick onsite Encounter Details Date Type Department Care Team (Late st Contact Info) Description 12/15/2024 3:15 PM EDT Office Visit [facility] [address] [place] [address] Jade Laguerre MD [address] [place] [address] Hypersomnia (Primary Dx); Type 2 diabetes mellitus with hyperglycemia, without long-term current use of insulin (CMS/HCC); Loud snoring; Apneic episode; Mixed anxiety and depressive disorder; Acute pain of left knee Social History Tobacco Use Types Packs/Day Years [...] with others, in a hotel, in a group home, living outside on the street, on a [...] Sign Reading Time Taken Comments Blood Pressure 130/86 12/15/2024 3:17 PM EDT Pulse 71 12/15/2024 3:17 PM EDT Temperature 36.7 C (98.1 F) 12/15/2024 3:17 PM EDT Respiratory Rate 17 12/15/2024 3:17 PM EDT Oxygen Saturation 96% 12/15/2024 3:17 PM EDT Inhaled Oxygen Concentration - - Weight 107 kg (235 lb) 12/15/2024 3:17 PM EDT Height 180.3 cm (5' 11 ) 12/15/2024 3:17 PM EDT Body Mass Index 32.78 12/15/2024 3:17 PM EDT documented in this encounter Progress Notes * aJde Gonzalez MD - 12/15/2024 3:15 PM EDT SUBJECTIVE: Carlos Meehan is a 49 y.o. year old male who presents for acute visit . Acute Concerns: Patient reports during hospitalization there was a complaint of his loud snoring, apnea episodes healso reports hypersomnia, he tells me he feels tired all the time during the day Anxiety/ depression has being having up and downs, reports he was hospitalized due to this was added zoloft 50mg daily Left knee pain for the past 3 weeks, XRAY done in ED normal, reports he was in the Gym and he thinks he hurt his knee while was exercising Social History Social History Narrative Not on file Problem List[1] Type 2 diabetes mellitus (CMS/HCC) Trigger middle finger of right hand Sebaceous cyst Mixed anxiety and depressive disorder Chronic low back pain Insomnia Colon cancer screening Pain in right testicle Diabetic polyneuropathy associated with type 2 diabetes mellitus (CMS/HCC) Homeless Dyslipidemia Polyp of sigmoid colon Hypersomnia Loud snoring Apneic episode Acute pain of left knee Family History[2] Review of Systems Constitutional: Positive for fatigue. Negative for activity change, appetite change, chills, diaphoresis, fever and unexpected weight change. HENT: Negative. Snoring Respiratory: Positive for apnea. Negative for cough, choking, chest tightness, shortness of breath,wheezing and stridor. Cardiovascular: Negative. Musculoskeletal: Positive for arthralgias. OBJECTIVE: Vitals: 12/15/24 1517 BP: 130/86 BP Location: Left arm Patient Position: Sitting BP Cuff Size: Large adult Pulse: 71 Resp: 17 Temp: 98.1 ??F (36.7 ??C) TempSrc: Oral SpO2: 96% Weight: 235 lb (107 kg) Height: 5' 11 (1.803 m) Physical Exam Constitutional: Appearance: Normal appearance. Cardiovascular: Rate and Rhythm: Normal rate and regular rhythm. Pulmonary: Effort: Pulmonary effort is normal. Breath sounds: Normal breath sounds. Abdominal: General: Abdomen is flat. Palpations: Abdomen is soft. Musculoskeletal: Right knee: Normal. Left knee: Tenderness present. Neurological: Mental Status: He is alert. Follow Up: Follow up in about 3 months (around 03/16/2025) for chronic conditions . Medications Ordered Prior to Encounter[3] Problem List Items Addressed This Visit Type 2 diabetes mellitus ([facility]) Diabetes is: almost at goal - Lab Results Component Value Date HGBA1C 7.0 (A) 12/15/2024 HGBA1C 9.3 (A) 10/15/2024 HGBA1C 10.8 (A) 07/09/2024 - Lab Results Component Value Date MICROALBUR 18.0 07/09/2024 CREATININE 1.02 09/07/2024 -Changes: None - Diabetic eye exam: Up-to-date - Diabetic foot exam: Referral done - Continue lifestyle modifications - Continue current medications - Follow up: 3 months Relevant Orders POCT Glucose (Completed) POCT Hgb A1c (Completed) Lipid Panel, Standard Albumin, Random Urine W/Creatinine Comprehensive Metabolic Panel Hypersomnia - Primary Sleep study is ordered today Relevant Medications sertraline (Zoloft) 25 MG tablet Other Relevant Orders Polysomnography Loud snoring Sleep study is ordered today Relevant Medications sertraline (Zoloft) 25 MG tablet Other Relevant Orders Polysomnography Apneic episode Sleep study is ordered today Relevant Orders Polysomnography Mixed anxiety and depressive disorder Counseling done Continue to follow-up with therapist Patient is on waiting list for psychiatrist Meanwhile I will prescribe medication that was added Zoloft 25 mg twice daily, continue with present medications as prescribed Relevant Medications sertraline (Zoloft) 25 MG tablet Acute pain of left knee I will refer patient for PT, if knee pain or discomfort is not better with PT I will refer him to orthopedics Relevant Orders Referral to Physical Therapy [1] Patient Active Problem List Diagnosis Type 2 diabetes mellitus (CMS/HCC) Trigger middle finger of right hand Sebaceous cyst Mixed anxiety and depressive disorder Chronic low back pain Insomnia Colon cancer screening Pain in right testicle Diabetic polyneuropathy associated with type 2 diabetes mellitus (CMS/HCC) Homeless Dyslipidemia Polyp of sigmoid colon Hypersomnia Loud snoring Apneic episode Acute pain of left knee [2] Family History Problem Relation Name Age of Onset Diabetes Mother [3] Current Outpatient Medications on File Prior to Visit Medication Sig Dispense Refill Alcohol Swabs (Alcohol Prep) 70 % pads USE DIRECTED TO TEST BLOOD SUGAR ONCE DAILY 100 each 11 Alcohol Swabs 70 % pads Use to test blood sugar 2 times daily 100 each 0 atorvastatin (Lipitor) 40 MG tablet TAKE 1 TABLET EVERY DAY 90 tablet 0 Blood Glucose Monitoring Suppl (Accu-Chek Guide) w/Device kit Use to monitor blood sugar at home once daily 1 kit 0 Blood Glucose Monitoring Suppl (FreeStyle [place] Lite) w/Device kit Use to test blood sugar 1 times daily 1 kit 0 Blood Glucose Monitoring Suppl (FreeStyle [place] Lite) w/Device kit Use to test blood sugar 2 times daily 1 kit 0 diphenhydrAMINE (BENADryl) 12.5 mg split tablet Take 25 mg by mouth if needed at bedtime for sleep. Dulaglutide 0.75 MG/0.5ML solution auto-injector Inject 0.75 mg under the skin 1 (one) time per week. 2 mL 3 empagliflozin (Jardiance) 10 MG Take 1 tablet (10 mg) by mouth Once per day. 30 tablet 11 FREESTYLE LITE test strip Use to test blood sugar 1 times daily 100 each 12 FREESTYLE LITE test strip Use to test blood sugar 1 times daily 100 each 12 gabapentin (Neurontin) 300 MG capsule Take 1 capsule (300 mg) by mouth 3 times daily. 90 capsule 11 glucose blood (Accu-Chek Guide Test) test strip Use to monitor blood sugar at home once daily 50 each 11 Lancets misc Use to test blood sugar 1 times daily 100 each 0 metFORMIN (Glucophage) 1000 MG tablet TAKE 1 TABLET TWICE DAILY IN THE MORNING AND IN THE EVENING WITH MEALS 180 tablet 0 omeprazole (PriLOSEC) [address] capsule Take 40 mg by mouth before breakfast. traZODone (Desyrel) 100 MG tablet TAKE 1 TABLET(100 MG) BY MOUTH AT BEDTIME 30 tablet 1 traZODone (Desyrel) 50 MG tablet TAKE 1 TABLET BY MOUTH EVERY DAY AT BEDTIME 30 tablet 2 TRUEplus Lancets 33G misc USE DIRECTED TO TEST BLOOD SUGAR ONCE DAILY 100 each 11 Trulicity 1.5 MG/0.5ML solution auto-injector INJECT ONE PEN (=1.5MG) SUBCUTANEOUSLY ONCE A WEEK ASDIRECTED 2 mL 0 No current facility-administered medications on file prior to visit. documented in this encounter Miscellaneous Notes * Assessment & Plan Note - Jade Gonzalez MD - 12/15/2024 4:23 PM EDT Associated Problem(s): Acute pain of left knee I will refer patient for PT, if knee pain or discomfort is not better with PT I will refer him to orthopedics * Assessment & Plan Note - Jade Gonzalez MD - 12/15/2024 4:22 PM EDT Associated Problem(s): Loud snoring Sleep study is ordered today * Assessment & Plan Note - Jade Gonzalez MD - 12/15/2024 4:22 PM EDT Associated Problem(s): Hypersomnia Sleep study is ordered today * Assessment & Plan Note - Jade Gonzalez MD - 12/15/2024 4:22 PM EDT Associated Problem(s): Apneic episode Sleep study is ordered today * Assessment & Plan Note - Jade Gonzalez MD - 12/15/2024 4:22 PM EDT Associated Problem(s): Mixed anxiety and depressive disorder Counseling done Continue to follow-up with therapist Patient is on waiting list for psychiatrist Meanwhile I will prescribe medication that was added Zoloft 25 mg twice daily, continue with present medications as prescribed * Assessment & Plan Note - aJde Gonzalez MD - 12/15/2024 4:21 PM EDT Associated Problem(s): Type 2 diabetes mellitus (CMS/[facility]) Diabetes is: almost at goal - Lab Results Component Value Date HGBA1C 7.0 (A) 12/15/2024 HGBA1C 9.3 (A) 10/15/2024 HGBA1C 10.8 (A) 07/09/2024 - Lab Results Component Value Date MICROALBUR 18.0 07/09/2024 CREATININE 1.02 09/07/2024 -Changes: None - Diabetic eye exam: Up-to-date - Diabetic foot exam: Referral done - Continue lifestyle modifications - Continue current medications - Follow up: 3 months documented in this encounter Plan of Treatment Scheduled Orders Name Type Priority Associated Diagnoses Orde r Schedule Polysomnography Sleep Center Routine Hypersomnia Loud snoring Apneic episode Expected: 12/15/2024 (Approximate), Expires: 12/15/2025 Lipid Panel, Standard Lab Routine Type 2 diabetes mellitus with hyperglycemia, without long-term current use of insulin (CMS/HCC) Expected: 12/15/2024 (Approximate), Expires: 12/15/2025 Albumin, Random Urine W/Creatinine Lab Routine Type 2 diabetes mellitus with hyperglycemia, without long-term current use of insulin (CMS/HCC) Expected: 12/15/2024 (Approximate), Expires: 12/15/2025 Comprehensive Metabolic Panel Lab Routine Type 2 diabetes mellitus with hyperglycemia, without long-term current use of insulin ([facility]) Expected: 12/15/2024 (Approximate), Expires: 12/15/2025 Scheduled Referrals Name Type Priority Associated Diagnoses Orde r Schedule Referral to Physical Therapy Outpatient Referral Routine Acute pain of left knee Expected: 12/15/2024 (Approximate), Expires: 12/15/2025 documented as of this encounter Procedures Procedure Name Priority Date/Time Associated Diagnosis Comments POCT GLYCATED HEMOGLOBIN, TOTAL Routine 12/15/2024 3:28 PM EDT Type 2 diabetes mellitus with hyperglycemia, without long-term current use of insulin ([facility]) POCT GLUCOSE Routine 12/15/2024 3:24 PM EDT Type 2 diabetes mellitus with hyperglycemia, without long-term current use of insulin ([facility]) documented in this encounter Results * (ABNORMAL) POCT Hgb A1c (12/15/2024 3:28 PM EDT) Hemoglobin A1C 7.0(A) 4.0 - 5.7 % QC Media Lot # [id number] Lot# Expiration Date Blood 12/15/2024 3:28 PM EDT us Jade Gonzalez MD POINT OF CARE TEST EN TER/EDIT ORDERABLES Final Result * POCT Glucose (12/15/2024 3:24 PM EDT) Glucose Blood, POC [id number] - 200 mg/dL QC Media Lot # [id number] Lot# Expiration Date ,726 Blood Capillary blood specimen / Unknown 12/15/2024 3:24 PM EDT us Jade Gonzalez MD POINT OF CARE TEST EN TER/EDIT ORDERABLES Final Result documented in this encounter Visit Diagnoses Diagnosis Hypersomnia- Primary Hypersomnia, unspecified Type 2 diabetes mellitus with hyperglycemia, without long-term current use of insulin ([facility]/HCC) Loud snoring Apneic episode Mixed anxiety and depressive disorder Dysthymic disorder Acute pain of left knee documented in this encounter Additional Health Concerns Assessment Noted Time PHQ-9 Depression Total Score: 0 10/16/19 9:56 AM EDT documented as of this encounter Care Teams Telesales Professional Relationship Specialty Start Date End Date Jade Laguerre MD [address] [place] [address] PCP - General Internal Medicine 05/27/24 documented as of this encounter
--- OUTSIDE RECORDS SUMMARY | 2024-12-15 18:16 | XMS_ITS | Clinical Summary ---
Author Organization [address] [facility] Address [address] [place] [address] Phone Care Team Providers Care Content Editor Name Role Phone Jade Laguerre MD Primary [...] PM EDT Office Visit Orthopedic Surgery - [place] [address] [address] Roney Turcios DPM [address] [address] Health Maintenance Due Date Last Done Comments [...] 03/17/2022 Social Influencers of Health Screening 03/17/2022 Depression Screening 04/07/2024 COVID-19 Vaccine (2 - 2024-2 6 season) 2024 04/08/2021 Influenza Vaccine (#1) 2024 04/08/2021 HIB Vaccines [...] to complete this topic Insurance [place] [facility] Care Teams Content Editor Relationship Specialty Start Date End Date Jade Laguerre MD [address] [phone] PCP - General Internal Medicine 10/18/21
--- OUTSIDE RECORDS SUMMARY | 2024-12-15 18:16 | XMS_ITS | Encounter Summary ---
Author Organization [employer] Address [address] [facility] 7 [place] [address] Care Team Providers Care Police Chief Name Role Phone Jade Laguerre MD Primary Care Provide r Reason for Visit * Reason Onset Date Comments Referral 12/09/2024 Encounter Details Date Type Department Care Team ([facility] st Contact Info) Description 12/09/2024 Telephone [facility] [address] [place] [address] Jade Laguerre MD [address] [place] [address] Referral Social History Tobacco Use Types Packs/Day Years [...] with others, in a hotel, in a fpc, living outside on the street, on a [...] AM EDT documented as of this encounter Miscellaneous Notes * Telephone Encounter - Alyssa Persaud RN - 12/10/2024 10:41 AM EDT TC returned to pt. Pt. Was seen at [facility] 11/26/24 for knee pain (note in chart), x-ray was normal, dx overuse injury and recommended PT with [facility]. However pt. Called their office and stated they would need a referral directly from PCP. Pt. Is also requesting an orthopedic referral for knee for further evaluation. Otherwise, pt. Reports when he was inpatient at [facility], the staff noted he was waking up frequently gasping for air. Pt. Reports he has been told that he snores very loudly and feels excessively tired during the day. Advised pt. Appt. Would be needed in order to schedule the sleep study and pt. Agreesto schedule appt. For 12/15/24 with PCP [facility] * Telephone Encounter - Rajiv Lawson - 12/09/2024 10:59 AM EDT Tc from pt requesting referrals for PT due to his knee being injured. Referral for sleep study. Referral for orthopedics. Any questions contact pt at [phone] documented in this encounter Plan of Treatment Not on file documented as of this encounter Visit Diagnoses Not on filedocumented in this encounter Additional Health Concerns Assessment Noted Time PHQ-9 Depression Total Score: 0 10/16/19 9:56 AM EDT documented as of this encounter Care Teams Police Chief Relationship Specialty Start Date End Date Jade Laguerre MD [address] [place] [address] PCP - General Internal Medicine 05/27/24 documented as of this encounter
--- OUTSIDE RECORDS SUMMARY | 2024-12-15 18:16 | XMS_ITS | Encounter Summary ---
Author Organization [employer] Address [address] [place] [address] 7 [place] [address] Care Team Providers Care Biblical Languages Professor Name Role Phone Jade Laguerre MD Primary Care Provide r Reason for Visit * Reason Onset Date Comments chart prep 12/14/2024 Encounter Details Date Type Department Care Team ([facility] st Contact Info) Description 12/14/2024 Telephone [facility] [address] [place] [address] Jade Laguerre MD [address] [place] [address] chart prep Social History Tobacco Use Types Packs/Day Years [...] with others, in a hotel, in a assisted, living outside on the street, on a [...] encounter Miscellaneous Notes * Telephone Encounter - Karen Oropeza MA - 12/14/2024 1:53 PM EDT Chart Prep Labs: done Images: done Referrals: complete Vaccines due: Covid, Flu, PCV20, and Hep B Screenings: colonoscopy Overdue care gaps: A1c, Glucose, PHQ-9, LYNDSEY-7, and Disability screen documented in this encounter Plan of Treatment Not on file documented as of this encounter Visit Diagnoses Not on filedocumented in this encounter Additional Health Concerns Assessment Noted Time PHQ-9 Depression Total Score: 0 10/16/19 9:56 AM EDT documented as of this encounter Care Teams Biblical Languages Professor Relationship Specialty Start Date End Date Jade Laguerre MD [address] [place] [address] PCP - General Internal Medicine 05/27/24 documented as of this encounter
--- OUTSIDE RECORDS SUMMARY | 2024-12-15 18:16 | XMS_ITS | Encounter Summary ---
Author Organization [employer] Address [address] [facility] 7t [place] [address] Care Team Providers Care Special Education Assistant Name Role Phone Jade Laguerre MD Primary Care Provide r Encounter Details Date Type Department Care Team (Latest Contact Info) Description 12/15/2024 Travel Social History Tobacco Use Types Packs/Day [...] documented as of this encounter Care Teams Special Education Assistant Relationship Specialty Start Date End Date Jade Laguerre MD [address] [place] [address] PCP - General Internal Medicine 05/27/24 documented as of this encounter
--- OUTSIDE RECORDS SUMMARY | 2024-12-15 18:16 | XMS_ITS | Clinical Summary ---
Author Organization [facility] Address [address] [facility] [address] [place] [address] Phone Care Team Providers Care Administrative Sales Assistant Name Role Phone Pcp, Unknown Primary Care [...] file Medical Devices Not on file Insurance [facility] [employer] Care Teams Administrative Sales Assistant Relationship Specialty Start Date End Date Pcp, Unknown PCP - General 08/28/21 Additional Source Comments The information contained in this document represents components of the legal health record. It is not the complete legal health record.[facility]
--- OUTSIDE RECORDS SUMMARY | 2024-12-15 18:16 | XMS_ITS | Encounter Summary ---
Author Organization [employer] Address [address] [facility] 7t [place] [address] Care Team Providers Care Bisque Brusher Name Role Phone Jade Laguerre MD Primary Care Provide r Encounter Details Date Type Department Care Team ([facility] st Contact Info) Description 08/28/2024 Orders Only [facility] [address] [place], [place] [phone] Jade Laguerre MD [address] [place] [address] Social History Tobacco Use Types Packs/Day Years [...] with others, in a hotel, in a chcf, living outside on the street, on a [...] documented as of this encounter Care Teams Bisque Brusher Relationship Specialty Start Date End Date Jade Laguerre MD [address] [place] [address] PCP - General Internal Medicine 05/27/24 documented as of this encounter
--- OUTSIDE RECORDS SUMMARY | 2024-12-15 18:16 | XMS_ITS | Clinical Summary ---
Author Organization [employer] Address [address] [place] [address] [address] [place] [address] Care Team Providers Care Director Manufacturing Engineering Name Role Phone Jade Laguerre MD Primary Care Provide r Allergies Active Allergy Reactions Criticality Noted Date Comments Penicillins Dermatitis,Hives,Other High 05/18/2021 Eczema Medications * This document contains information received from the source organization and may not represent a complete record from that organization. traZODone (Desyrel) 100 MG tabletIndications: Mixed anxiety and depressive disorder TAKE 1 TABLET(100 MG) BY MOUTH AT BEDTIME 30 tablet 1 05/22/19 24 Active Dulaglutide 0.75 MG/0.5ML solution auto-injectorIndic ations:Type 2 diabetes mellitus with hyperglycemia, without long-term current use of insulin ([facility]) Inject 0.75 mg under the skin 1 (one) time per week. 2 mL 3 07/10/19 25 Active FREESTYLE LITE test stripIndications:T ype 2 diabetes mellitus with hyperglycemia, without long-term current use of insulin ([facility]) Use to test blood sugar 1 times daily 100 each 12 07/10/19 25 026 Active Blood Glucose Monitoring Suppl (FreeStyle Benson Lite) w/Device kitIndications:Typ e 2 diabetes mellitus with hyperglycemia, without long-term current use of insulin ([facility]) Use to test blood sugar 1 times daily 1 kit 07/10/19 25 Active FREESTYLE LITE test stripIndications:T ype 2 diabetes mellitus with hyperglycemia, without long-term current use of insulin ([facility]) Use to test blood sugar 1 times daily 100 each 12 07/22/19 25 026 Active Lancets miscIndications:Ty pe 2 diabetes mellitus with hyperglycemia, without long-term current use of insulin ([facility]) Use to test blood sugar 1 times daily 100 each 07/22/19 25 Active Alcohol Swabs 70 % padsIndications:Ty pe 2 diabetes mellitus with hyperglycemia, without long-term current use of insulin ([facility]) Use to test blood sugar 2 times daily 100 each 07/22/19 25 Active Blood Glucose Monitoring Suppl (FreeStyle Benson Lite) w/Device kitIndications:Typ e 2 diabetes mellitus with hyperglycemia, without long-term current use of insulin ([facility]) Use to test blood sugar 2 times daily 1 kit 07/22/19 25 Active traZODone (Desyrel) 50 MG tabletIndications: Insomnia, unspecified type TAKE 1 TABLET BY MOUTH EVERY DAY AT BEDTIME 30 tablet 2 10/15/19 25 Active empagliflozin (Jardiance) 10 MGIndications:Type 2 diabetes mellitus with hyperglycemia, without long-term current use of insulin ([facility]) Take 1 tablet (10 mg) by mouth Once per day. 30 tablet 10/16/19 25 026 Active gabapentin (Neurontin) 300 MG capsuleIndications :Diabetic polyneuropathy associated with type 2 diabetes mellitus ([facility]) Take 1 capsule (300 mg) by mouth 3 times daily. 90 capsule 10/16/19 25 026 Active diphenhydrAMINE (BENADryl) 12.5 mg split tablet Take 25 mg by mouth if needed at bedtime for sleep. Active omeprazole (PriLOSEC) [address] capsule Take 40 mg by mouth before breakfast. 09/08/19 25 Active metFORMIN (Glucophage) 1000 MG tabletIndications: Type 2 diabetes mellitus with hyperglycemia, without long-term current use of insulin ([facility]) TAKE 1 TABLET TWICE DAILY IN THE MORNING AND IN THE EVENING WITH MEALS 180 tablet 10/20/19 25 Active atorvastatin (Lipitor) 40 MG tabletIndications: Dyslipidemia TAKE 1 TABLET EVERY DAY 90 tablet 10/20/19 25 Active Alcohol Swabs (Alcohol Prep) 70 % padsIndications:Ty pe 2 diabetes mellitus with hyperglycemia, without long-term current use of insulin ([facility]) USE DIRECTED TO TEST BLOOD SUGAR ONCE DAILY 100 each 10/20/19 25 Active TRUEplus Lancets 33G miscIndications:Ty pe 2 diabetes mellitus with hyperglycemia, without long-term current use of insulin ([facility]) USE DIRECTED TO TEST BLOOD SUGAR ONCE DAILY 100 each 10/20/19 25 Active Trulicity 1.5 MG/0.5ML solution auto-injectorIndic ations:Type 2 diabetes mellitus with hyperglycemia, without long-term current use of insulin ([facility]) INJECT ONE PEN (=1.5MG) SUBCUTANEOUSLY ONCE A WEEK DIRECTED 2 mL 11/12/19 25 Active Blood Glucose Monitoring Suppl (Accu-Chek Guide) w/Device kitIndications:Typ e 2 diabetes mellitus with hyperglycemia, without long-term current use of insulin ([facility]) Use to monitor blood sugar at home once daily 1 kit 11/17/19 25 Active glucose blood (Accu-Chek Guide Test) test stripIndications:T ype 2 diabetes mellitus with hyperglycemia, without long-term current use of insulin ([facility]) Use to monitor blood sugar at home once daily 50 each 11/17/19 25 026 Active sertraline (Zoloft) 25 MG tabletIndications: Mixed anxiety and depressive disorder Take 1 tablet (25 mg) by mouth 2 times daily. 60 tablet 2 12/16/19 25 026 Active Active Problems Problem Noted Date Diagnosed Date Hypersomnia 12/15/2024 Assessment & Plan (12/15/2024 4:22 PM EDT): Sleep study is ordered today Loud snoring 12/15/2024 Assessment & Plan (12/15/2024 4:22 PM EDT): Sleep study is ordered today Apneic episode 12/15/2024 Assessment & Plan (12/15/2024 4:22 PM EDT): Sleep study is ordered today Acute pain of left knee 12/15/2024 Assessment & Plan (12/15/2024 4:23 PM EDT): I will refer patient for PT, if knee pain or discomfort is not better with PT I will refer him to orthopedics Polyp of sigmoid colon 10/15/2024 Dyslipidemia 07/09/2024 Colon cancer screening 04/14/2023 Pain in right testicle 04/14/2023 Assessment & Plan (04/14/2023 12:17 PM EST): US ordered after result I will refer him to urology Diabetic polyneuropathy jesica cantrell with type 2 diabetes mellitus 04/14/2023 Assessment & Plan (10/15/2024 3:18 PM EDT): I changed his gabapentin to 300 mg every 8 hours Homeless 04/14/2023 Type 2 diabetes mellitus 08/12/2022 Assessment & Plan (12/15/2024 4:21 PM EDT): Diabetes is: almost at goal - Lab [...] Follow up: 3 months Assessment & Plan (10/15/2024 3:18 PM EDT): [...] and depressive disorder 08/12/2022 Assessment & Plan (12/15/2024 4:22 PM EDT): Counseling done Continue to follow-up with therapist Patient is on waiting list for psychiatrist Meanwhile I will prescribe medication that was added Zoloft 25 mg twice daily, continue with present medications as prescribed Assessment & Plan (10/15/2024 3:18 PM EDT): [...] organization. Date Type Department Care Team Description 12/15/2024 3:15 PM EDT Office Visit [facility] [address] [place] [address] Jade Laguerre MD Hypersomnia (Primary Dx); Type 2 diabetes mellitus with hyperglycemia, without long-term current use of insulin (CMS/HCC); Loud snoring; Apneic episode; Mixed anxiety and depressive disorder; Acute pain of left knee 12/15/2024 Travel 12/14/2024 Telephone [facility] [address] [place] [address] Jade Laguerre MD chart prep 12/09/[address] [address] Jade Laguerre MD Referral 11/26/2024 Orders Only [facility] External Provider, [facility] 11/16/2024 Refill [facility] [address] [place] [address] Alyssa Persaud RN Type 2 diabetes mellitus with hyperglycemia, without long-term current use of insulin (CMS/HCC) 11/10/[address] [address] Jade Laguerre MD Prior Authorization ([facility] [employer] [place]: Trulicity 1.5 MG) 11/10/2024 Refill [facility] [address] [place] [address] Jade Laguerre MD Type 2 diabetes mellitus with hyperglycemia, without long-term current use of insulin (CMS/HCC) 11/01/2024 Telephone [facility] [address] [place] [phone] Jade Laguerre MD Referral 10/19/2024 Telephone [facility] [address] [place] [phone] Jade Laguerre MD 10/18/2024 Refill [facility] [address] [place] [address] Jade Laguerre MD Type 2 diabetes mellitus with hyperglycemia, without long-term current use of insulin ([facility]/HCC); Dyslipidemia 10/15/2024 2:30 PM EDT Office Visit [facility] [address] [place] [address] Eleonora Gaviria, CECE Type 2 diabetes mellitus without ophthalmic manifestations (CMS/HCC) (Primary Dx); Presbyopia 10/15/2024 9:45 AM EDT Office Visit [facility] [address] [place] [address] Jade Laguerre MD Type 2 diabetes mellitus with hyperglycemia, without long-term current use of insulin ([facility]); Diabetic polyneuropathy associated with type 2 diabetes mellitus ([facility]); Polyp of sigmoid colon, unspecified type; Mixed anxiety and depressive disorder 10/15/2024 Travel 10/14/2024 Telephone [facility] [address] [place] [address] Jade Laguerre MD Insurance 10/14/2024 Telephone [facility] [address] [place] [address] [place] 10/13/2024 Refill [facility] [address] [place] [address] Jade Laguerre MD Insomnia, unspecified type; Type 2 diabetes mellitus with hyperglycemia, without long-term current use of insulin ([facility]/HCC) 10/11/2024 Telephone [facility] [address] [place] [address] Jade Laguerre MD No Show 10/07/2024 Telephone [facility] [address] [place] [address] Jade Laguerre MD chart prep 10/01/2024 Patient Outreach [facility] [address] [place], [place] [phone] Jade Laguerre MD Pre-visit Planning (SDOH was already completed) from Last 3 Months Immunizations Immunization Administration [...] with others, in a hotel, in a longterm, living outside on the street, on a [...] Mass Index 32.78 12/15/2024 3:17 PM EDT Plan of Treatment Health Maintenance Due [...] PCV) 1996 COVID-19 Vaccine (2 - season) 2024 04/08/2021 Influenza Vaccine (#1) 2024 , 01/02/2022, 04/08/2021 Diabetes: Hemoglobin A1C 03/16/2025 025, 10/15/2024, 07/09/2024, Additional history exists SDOH Screening 07/01/2025 07/01/2024 Diabetes: Urine Protein Screening 07/09/2025 07/09/2024, 04/15/2023, 08/07/2021 Lipid Panel 07/09/2025 07/09/2024, 08/07/2021 Alcohol/Substance Use Screening 10/15/2025 10/15/2024 Depression Screening 10/15/2025 10/15/2024, 10/16/19 25 Tobacco Screening 10/15/2025 10/15/2024 Eye Exam 10/15/2026 10/15/2024, 10/05, 10/15/2024, Additional history exists Zoster Vaccines (1 of 2) 09/25/2027 DTaP/Tdap/Td Vaccines (3 - Td or Tdap) 11/13/2034 11/13/2024, 01/02/2022 RSV Patients and Patients Aged 60 [...] hyperglycemia, without long-term current use of insulin ([facility]) POCT GLUCOSE Routine 12/15/2024 3:24 PM EDT Type 2 diabetes mellitus with hyperglycemia, without long-term current use of insulin ([facility]) XR KNEE 4+ VIEWS LEFT Routine 11/26/2024 5:33 PM EDT POCT GLYCATED HEMOGLOBIN, TOTAL Routine 10/15/2024 9:57 AM EDT Type 2 diabetes mellitus with hyperglycemia, without long-term current use of insulin (CMS/HCC) POCT GLUCOSE Routine 10/15/2024 9:57 AM EDT Type 2 diabetes mellitus with hyperglycemia, without long-term current use of insulin (CMS/HCC) ALBUMIN, RANDOM URINE W/CREATININE Routine 07/09/2024 12:20 [...] to Health Maintenance Results * (ABNORMAL) POCT Hgb A1c (12/15/2024 3:28 PM EDT) Only the most recent of2 resultswithin the time period is included. Hemoglobin A1C 7.0(A) 4.0 - 5.7 % QC Media Lot # [id number] Lot# Expiration Date Blood 12/15/2024 3:28 PM EDT Jade Gonzalez MD POINT OF CARE TEST EN TER/EDIT ORDERABLES Final Result * POCT Glucose (12/15/2024 3:24 PM EDT) Only the most recent of2 resultswithin the time period is included. Glucose Blood, POC 146 60 - 200 mg/dL QC Media Lot # [id number] Lot# Expiration Date 72 Blood Capillary blood specimen / Unknown 12/15/2024 3:24 PM EDT us Jade Gonzalez MD POINT OF CARE TEST EN TER/EDIT ORDERABLES Final Result * XR Knee 4+ Views Left (11/26/2024 5:33 PM EDT) Anatomical Region Laterality Modality Lower Extremities, Knee Left Radiogra phic Imaging 11/26/2024 5:33 PM EDT Narrative 11/26/2024 5:35 PM EDT [address] [address] XRay Report Signed Patient: Carlos Meehan MR#: [id number] : 1975 Acct:[id number] Age/Sex: 49 / M ADM Date: 11/26/24 Loc: HO.ED Attending Dr: Ordering Physician: Gilberto Griffin Date of Service: 11/26/24 Procedure(s): XR knee LT 4V Accession Number(s): [id number] cc: [facility]; Gilberto Griffin CLINICAL HISTORY: pain 4 view [...] Williamson MD in OV> 11/26/24 1734 DD/ 1733 TD/TT: 11/26/24 173 Machine Spreader: Procedure Note Donotuseinterpreter, Image - 11/26/[address] [address] XRay Report Signed Patient: Frieda MeehanR#: [id number] : 1975Acct:[id number] Age/Sex: 49 / MADM Date: 11/26/24 Loc: HO.ED Attending Dr: Ordering Physician: Gilberto Griffin Date of Service: 11/26/24 Procedure(s): XR knee LT 4V Accession Number(s): [id number] cc: [facility]; Gilberto Griffin CLINICAL HISTORY: pain 4 view [...] in OV> 11/26/241733 DD/ 32 TD/TT: 11/26/241732 Machine Spreader: us [facility] External Provider IMG XR PROCEDURES Final Result * Albumin, Random Urine W/Creatinine (07/09/2024 12:20 PM EDT) Creatinine, Urine 143.39 mg/dL [facility] Microalbumin Urine 18.0 mg/L [facility] Microalbum Creatinine Ratio Ur 12.5 <30 ug/mg cr [facility] Comment:Albumin/Creatinine R atio Reference Ranges: Normal: < 30 ug/mg creatinine Microalbuminuria: 30 - 300 ug/mg creatinineClinical Albuminuria: > 300 ug/mg creatinine Urine (Urine, Random) 07/09/2024 12:20 PM EDT 07/09/2024 1:03 PM EDT us Jade Gonzalez MD LAB URINE ORDERABLES Final Result [facility] [address] [place] [address] [phone] * (ABNORMAL) Lipid Panel, Standard (07/09/2024 11:20 AM EDT) Triglycerides 371(H) <150 mg/dL [facility] Comment:Desirable Triglyceri de: less than 150 mg/dLBorderline High Triglyceride 150-199 mg/dLHigh Triglyceride: 200-499 mg/dLVery High Triglyceride: greater than or equal to 5OO mg/dL Cholesterol 258(H) <200 mg/dL [facility] Comment:Desirable Cholestero l: less than 200 mg/dLBorderline High Cholesterol: 200-239 mg/dLHigh Cholesterol: greater than 239 mg/dL LDL Cholesterol Calculated 147(H) <100 mg/dL [facility] Comment:Desirable LDL: less than 100 mg/dLNear Optimal/Above Optimal LDL: 110- 129 mg/dLBorderline High LDL: 130-159 mg/dLHigh LDL: 160-189 mg/dLVery High LDL: greater than or equal to 190 mg/dL HDL Cholesterol 37(L) >40 mg/dL [facility] Comment:Desirable HDL: great er than 40 mg/dL Note: This HDL assay may give artificially low results in patients with liver disease. Blood Venous blood specimen / Unknown 07/09/2024 11:20 AM EDT 07/09/2024 1:21 PM EDT us Jade Gonzalez MD LAB BLOOD ORDERABLES Final Result Performing Organization Address [facility] Co de Phone Number [facility] [address] [place] [phone] * Hepatitis C Antibody with Reflex to HCV, RNA, Quantitative, Real-Time PCR (04/14/2023 11:36 AM EST) Hepatitis C Antibody Nonreactive Nonreactive [facility] Comment:Antibodies to HCV no t detected; does not exclude early acuteHCV infection. Blood Venous blood specimen / Unknown 04/14/2023 11:36 AM EST 04/14/2023 1:34 PM EST us Jade Gonzalez MD LAB BLOOD ORDERABLES Final Result Performing Organization Address [facility] Co de Phone Number [facility] [address] [place] [phone] * HIV-1/2 Antigen and Antibodies, Fourth Generation, with Reflexes (04/14/2023 11:36 AM EST) HIV AB/AG Nonreactive Nonreactive [facility] Comment:HIV-1 p24 Ag and/or HIV-1/HIV-2 Ab not detected.A test result that is nonreactive does not exclude thepossibility of exposure to or infection with HIV-1 and/orHIV-2. Nonreactive results in this assay for individualswith prior exposure to HIV-1 and/or HIV-2 may be due toantigen and antibody levels that are below the limit ofdetection of this assay.The [employer] HIV Ag/Ab Combo assay result andsupplemental assay results should be interpreted inconjunction with the patient's clinical presentation,history and other laboratory results. If the results areinconsistent with clinical evidence, additional testing issuggested to confirm the result. Blood Venous blood specimen / Unknown 04/14/2023 11:36 AM EST 04/14/2023 1:34 PM EST us Jade Gonzalez MD LAB BLOOD ORDERABLES Final Result [facility] [address] [place] [phone] [phone] from Last 3 Months or Most Recently Relevant to Health Maintenance Insurance [employer] Care Teams Director Manufacturing Engineering Relationship Specialty Start Date End Date Jade Laguerre MD [address] [place] [phone] PCP - General Internal Medicine 05/27/24
--- NOTE | 2024-12-17 10:08 | HO.ANESPROP2 ---
Documented by User: Blanche Chase NP 12/17/24 10:08 HPI - Anesthesia Eval Consult details Narrative: 49yo M for Colonoscopy Anesthesia Pre-Procedure Meds Is the patient on any of the following meds?: GLP1/DPP4 and SGLT2 Inhib PMFSH Active Problems Active Problems: All Active Problems Lower urinary tract symptoms (Acute) Past Medical History Medical History Anxiety and depression Diabetes type 2, controlled Hyperlipidemia Surgical History Surgical History Hx of colonoscopy Social History Social History Alcohol intake: former Patient Tobacco Use Status: Current someday Tobacco user Tobacco use type: Cigarette Use of substances other than those prescribed or required for medical reasons: No Are you DNR?: No Advance Directives: No Advance Directives Information Provided: Yes Meds Allergies Allergy/AdvReac Type Severity Reaction Status Date / Time Penicillins Allergy Intermediate Hives Verified 12/20/24 11:49 Home Medications ?Medication ?Instructions ?Recorded ?Confirmed ?Last Taken ?Type alcohol swabs (Alcohol Prep Pads) 1 pad topical DAILY 11/01/24 12/20/24 Unknown History atorvastatin 40 mg tablet 40 mg PO DAILY 11/01/24 12/20/24 Unknown History dulaglutide 1.5 mg/0.5 mL 1.5 mg subcut QWEEK 11/01/24 12/20/24 12/03/24 History subcutaneous pen injector (Trulicity) empagliflozin 10 mg tablet 10 mg PO DAILY 11/01/24 12/20/24 12/16/24 History (Jardiance) gabapentin 300 mg capsule 300 mg PO TID 11/01/24 12/20/24 Unknown History lancets 33 gauge (TRUEplus Lancets) #100 ea 11/01/24 12/20/24 Unknown History metformin 1,000 mg tablet 1,000 mg PO BID 11/01/24 12/20/24 Unknown History trazodone 50 mg tablet 50 mg PO BEDTIME 11/01/24 12/20/24 Unknown History sertraline 50 mg tablet 50 mg PO DAILY 11/29/24 12/20/24 Unknown History Assessment and Plan Assessment Anesthesia Assessment: Chart Reviewed Documented by User: Terell Wray MD 12/20/24 12:23 PMFSH Past Medical History Medical History Anxiety and depression Diabetes type 2, controlled Hyperlipidemia Functional capacity: independent ambulation Family History Family history of problems with anesthesia: No Surgical History Surgical History Hx of colonoscopy History of Problems with Anesthesia: No Social History Social History Alcohol intake: former Patient Tobacco Use Status: Current someday Tobacco user Tobacco use type: Cigarette Use of substances other than those prescribed or required for medical reasons: No Are you DNR?: No Advance Directives: No Advance Directives Information Provided: Yes Meds Allergies Allergy/AdvReac Type Severity Reaction Status Date / Time Penicillins Allergy Intermediate Hives Verified 12/20/24 11:49 Home Medications ?Medication ?Instructions ?Recorded ?Confirmed ?Last Taken ?Type alcohol swabs (Alcohol Prep Pads) 1 pad topical DAILY 11/01/24 12/20/24 Unknown History atorvastatin 40 mg tablet 40 mg PO DAILY 11/01/24 12/20/24 Unknown History dulaglutide 1.5 mg/0.5 mL 1.5 mg subcut QWEEK 11/01/24 12/20/24 12/03/24 History subcutaneous pen injector (Trulicity) empagliflozin 10 mg tablet 10 mg PO DAILY 11/01/24 12/20/24 12/16/24 History (Jardiance) gabapentin 300 mg capsule 300 mg PO TID 11/01/24 12/20/24 Unknown History lancets 33 gauge (TRUEplus Lancets) #100 ea 11/01/24 12/20/24 Unknown History metformin 1,000 mg tablet 1,000 mg PO BID 11/01/24 12/20/24 Unknown History trazodone 50 mg tablet 50 mg PO BEDTIME 11/01/24 12/20/24 Unknown History sertraline 50 mg tablet 50 mg PO DAILY 11/29/24 12/20/24 Unknown History Exam Airway Mallampati Class: III TM Dist: >3cm Neck ROM: Full Loose/Missing/Broken Teeth: No Heart: RRR Lungs: CTA Assessment and Plan Final Anesthetic Review Family History of Problems with Anesthesia: No History of Problems with Anesthesia: No NPO: Yes ASA Class: III Final Preanesthetic Review: No Changes in Pt Med Stat, Meds/Allgs Chart Reviewed, Consent Obtained/Reviewed and Anes Risks/Benef Reviewed Patient Risk: Low Procedure Risk: Low Anesthetic Plan Anesthetic Plan: TIVA Disposition: Standard PACU
[2024-12-20 11:49] VITALS: BMI 31.4
[2024-12-20 11:59] VITALS: BP 119/74; PULSE 81; RESP 15; TEMP 36.6; O2SAT 94
[2024-12-20] MEDS: Lactated Ringers 1,000 ML 100 ML IVCONT (12:05)
[2024-12-20 12:14] LABS: Glucose, Whole Blood 152 mg/dL (60-115)
--- NOTE | 2024-12-20 12:54 | MHC.SHP ---
Pre-Procedural Eval Section A - 24 Hr Update-Section A only Date of Service: 12/20/24 The patient is an INPATIENT: No Changes since office visit: Yes Patient answered all questions; No Cold of Flu in the past 2 weeks, No New Medical Problems and No Changes in Medication The patient has been examined within 24 hours of the surgical procedure. The History & Physical has been completed within 30 days and I have reviewed it.: Yes Section B - Complete if H&P > 30 days Chief Complaint: screening Allergies: Allergies Allergy/AdvReac Type Severity Reaction Status Date / Time Penicillins Allergy Intermediate Hives Verified 12/20/24 11:49 Plan Diagnosis/Plan: Unchanged I have reviewed the history and physical and performed a pertinent physical examination on my patient. No changes have occurred unless specified. Time Spent With Patient Time: Total time managing care of this patient today ____ minutes.
--- NOTE | 2024-12-20 13:43 | HO.OPN-COLON ---
Colonoscopy Operative Note Operative Note Date of Service: 12/20/24 Narrative: COLONOSCOPY TILL CECUM Pre-op diagnosis: Surveillance for colon polyps. Post-op diagnosis:? Diverticulosis Endoscopist:? Dominique Araujo MD Anesthesia:?MAC Consent: Indications for the procedure and potential complications of bleeding, perforation, reaction to medications and missed diagnosis were discussed with the patient and informed consent was obtained. Instrument: Olympus CF H 190 L variable stiffness adult colonoscope Monitoring: Vital signs and clinical assessment, intermittent blood pressure monitoring, continuous EKG monitoring, Pulse oximetry and Carbon Dioxide monitoring were done throughout the procedure. Please see anesthesia flowsheet. Colon withdrawl time was 18 minutes. Procedure: The patient was placed in the left lateral decubitis position and pre-procedure medications were administered. After a digital rectal examination of the ano-rectum, the video colonoscope was inserted into the rectum and advanced through the colon to the cecum. The colonoscope was slowly withdrawn in a retrograde panoramic fashion and the colon mucosa was carefully examined including a retroflexed view of the rectum. Findings and interventions are described below. Procedure Difficulty: without difficulty Findings: Terminal Ileum: Not evaluated Cecum: Normal Ascending Colon: Normal Transverse Colon: Normal Descending Colon: Normal Sigmoid Colon: Tattoo from past polypectomy site visualized in the sigmoid colon at 25 cms. No recurrent/residual polyp was seen. Moderate diverticulosis Rectum: Normal Ano-rectum: Normal Colon preparation: Good after copious irrigation. Social Circle Bowel Preparation Scale Right colon; 2 Transverse colon: 2 Left colon; 2 (0 = Unprepared colon segment with mucosa not seen due to solid stool that cannot be cleared. 1 = Portion of mucosa of the colon segment seen, but other areas of the colon segment not well seen due to staining, residual stool and/or opaque liquid. 2 = Minor amount of residual staining, small fragments of stool and/or opaque liquid, but mucosa of colon segment seen well. 3 = Entire mucosa of colon segment seen well with no residual staining, small fragments of stool or opaque liquid) Impression and Post Procedure Diagnosis: Colonoscopy Findings: No polyps were detected Moderate diverticulosis seen in the sigmoid colon Plan: Repeat Colonoscopy in 5 years due to history of adenomatous colon polyps. (Dulcolax 10 mg daily starting 3 days prior to next colonoscopy appointment). Above findings were reviewed with the patient and relevant handouts were given and the discharge area.
[2024-12-20 13:45] VITALS: BP 99/46; PULSE 72; RESP 22; TEMP 36.5; O2SAT 98
[2024-12-20 14:00] VITALS: BP 114/67; PULSE 69; RESP 16; TEMP 36.1; O2SAT 98
== END 2024-12-20 14:25 | disposition home or self-care (01) ==
PROVIDERS: Visit Provider Internal Medicine Gastroenterology
PROC: 0DJD8ZZ Inspection of Lower Intestinal Tract, Via Natural or Artificial Opening Endoscopic (ICD-10-PCS; CPT 45378; principal; 2024-12-20 13:40)
DX: Z12.11 Encounter for screening for malignant neoplasm of colon (principal); K57.30 Diverticulosis of large intestine without perforation or abscess without bleeding; Z86.0101 Personal history of adenomatous and serrated colon polyps; Z83.719 Family history of colon polyps, unspecified; E11.9 Type 2 diabetes mellitus without complications; E78.00 Pure hypercholesterolemia, unspecified; Z79.84 Long term (current) use of oral hypoglycemic drugs; Z79.02 Long term (current) use of antithrombotics/antiplatelets; Z79.899 Other long term (current) drug therapy
CPT/HCPCS: 45378; 82947; J2704

== ENCOUNTER → 2024-12-20 11:28 | Outpatient (BNV) | payer OTHER, SELFPAY | PROVIDERS: Visit Provider Internal Medicine Gastroenterology | DX: Z12.11 Encounter for screening for malignant neoplasm of colon (principal); Z86.0101 Personal history of adenomatous and serrated colon polyps; K57.30 Diverticulosis of large intestine without perforation or abscess without bleeding | CPT/HCPCS: 45378 ==

== ENCOUNTER 2024-12-23 16:13 | Outpatient (REF) | payer OTHER, SELFPAY ==
--- OUTSIDE RECORDS SUMMARY | 2024-12-23 15:15 | XMS_ITS | Encounter Summary ---
Author Organization [employer] Address [address] [facility] 7 [place] [address] Care Team Providers Care Non Destructive Testing Supervisor Name Role Phone Jade Laguerre MD Primary Care Provide r Encounter Details Date Type Department Care Team ([facility] st Contact Info) Description 12/23/2024 3:15 PM EDT Office Visit [facility] MED[facility] [address] [place] [address] Melanie Dawkins FNP [address] [place] [address] Sexually transmitted disease in male (Primary Dx) Social History Tobacco Use Types Packs/Day Years Used Date Smoking Tobacco: Former Cigarettes Passive Smoke Exposure: Past Smokeless Tobacco: Never Tobacco Cessation:Counseling Given: Not [...] Sign Reading Time Taken Comments Blood Pressure 142/88 12/23/2024 3:05 PM EDT Pulse 76 12/23/2024 3:05 PM EDT Temperature 36.8 C (98.3 F) 12/23/2024 3:05 PM EDT Respiratory Rate 20 12/23/2024 3:05 PM EDT Oxygen Saturation 96% 12/23/2024 3:05 PM EDT Inhaled Oxygen Concentration - - Weight 105 kg (232 lb 8 oz) 12/23/2024 3:05 PM E DT Height 183.3 cm (6' 0.15 ) 12/23/2024 3:05 PM ED T Body Mass Index 31.41 12/23/2024 3:05 PM EDT documented in this encounter Plan of Treatment Scheduled Orders Name Type Priority Associated Diagnoses Orde r Schedule Hepatitis C Antibody with Reflex to HCV, RNA, Quantitative, Real-Time PCR Lab Routine Sexually transmitted disease in male Expected: 12/23/2024, Expires: 12/23/2025 HIV-1/2 Antigen and Antibodies, Fourth Generation, with Reflexes Lab Routine Sexually transmitted disease in male Expected: 12/23/2024 (Approximate), Expires: 12/23/2025 Hepatitis B surface antigen, EIA Lab Routine Sexually transmitted disease in male Expected: 12/23/2024 (Approximate), Expires: 12/23/2025 Herpes Simplex Virus Culture with Reflex Typing Microbiology Routine Sexually transmitted disease in male Expected: 12/23/2024, Expires: 12/23/2025 Syphilis Screen Lab Routine Sexually transmitted disease in male Expected: 12/23/2024, Expires: 12/23/2025 Chlamydia/N. Gonorrhoeae, PCR, Urine Lab Routine Sexually transmitted disease in male Ordered: 12/23/2024 documented as of this encounter Visit Diagnoses Diagnosis Sexually transmitted disease in male- Primary documented in this encounter Additional Health Concerns Assessment Noted Time PHQ-9 Depression Total Score: 0 10/16/19 9:56 AM EDT documented as of this encounter Care Teams Non Destructive Testing Supervisor Relationship Specialty Start Date End Date Jade Laguerre MD [address] [place] [phone] PCP - General Internal Medicine 05/27/24 documented as of this encounter
--- OUTSIDE RECORDS SUMMARY | 2024-12-23 17:17 | XMS_ITS | Encounter Summary ---
Author Organization [employer] Address [address] [place] [address] 7 [place] [address] Care Team Providers Care Reactor Operator Name Role Phone Jade Laguerre MD Primary Care Provide r Encounter Details Date Type Department Care Team (Late st Contact Info) Description 12/20/2024 Orders Only GENERIC EXTERNAL DATA DEPARTMENT Provider, Generic External Data Social History Tobacco Use Types Packs/Day Years [...] with others, in a hotel, in a usp, living outside on the street, on a [...] t he electric, gas, oil or water [employer] threatened to shut off services in your [...] on file documented as of this encounter Procedures Procedure Name Priority Date/Time Associated Diagnosis Comments GLUCOSE, WHOLE BLOOD Routine 12/20/2024 11:58 AM EDT documented in this encounter Results * (ABNORMAL) Glucose, Whole Blood (12/20/2024 11:58 AM EDT) Glucose, Whole Blood 152(H) 60 - 115 mg/dL [facility] Comment:METER #: [id number] 12/20/2024 11:5 8 AM EDT 12/20/2024 12:14 PM EDT us Generic External Data Provider LAB BLOOD ORDERAB LES Final Result [facility] [address] [place] [address] [phone] documented in this encounter Visit Diagnoses Not on filedocumented in this encounter Additional Health Concerns Assessment Noted Time PHQ-9 Depression Total Score: 0 10/16/19 9:56 AM EDT documented as of this encounter Care Teams Reactor Operator Relationship Specialty Start Date End Date Jade Laguerre MD [address] [place] [address] PCP - General Internal Medicine 05/27/24 documented as of this encounter
--- OUTSIDE RECORDS SUMMARY | 2024-12-23 17:17 | XMS_ITS | Clinical Summary ---
Author Organization [facility] Address [address] [facility] [address] [place] [phone] Phone Care Team Providers Care Oral Hygienist Name Role Phone Pcp, Unknown Primary Care [...] file Medical Devices Not on file Insurance [facility] C[employer] Care Teams Oral Hygienist Relationship Specialty Start Date End Date Pcp, Unknown PCP - General 08/28/21 Additional Source Comments The information contained in this document represents components of the legal health record. It is not the complete legal health record.[facility]
--- OUTSIDE RECORDS SUMMARY | 2024-12-23 17:17 | XMS_ITS | Clinical Summary ---
Author Organization [employer] Address [address] [place] [address] 7t [place] [address] Care Team Providers Care Safety Professional Name Role Phone Jade Laguerre MD [...] hyperglycemia, without long-term current use of insulin ([facility]) Inject 0.75 mg under the skin 1 (one) time per week. 2 mL 3 025 Active FREESTYLE LITE test stripIndications: Type 2 diabetes mellitus with hyperglycemia, without long-term current use of insulin ([facility]) Use to test blood sugar 1 times daily 100 each 12 025 2025 Active Blood Glucose Monitoring Suppl (FreeStyle Reseda Lite) w/Device kitIndications:Ty pe 2 diabetes mellitus with hyperglycemia, without long-term current use of insulin (CMS/[facility]) Use to test blood sugar 1 times daily 1 kit 025 Active FREESTYLE LITE test stripIndications: Type 2 diabetes mellitus with hyperglycemia, without long-term current use of insulin ([facility]) Use to test blood sugar 1 times daily 100 each 12 025 2025 Active Lancets miscIndications:T ype 2 diabetes mellitus with hyperglycemia, without long-term current use of insulin ([facility]) Use to test blood sugar 1 times daily 100 each Active Alcohol Swabs 70 % padsIndications:T ype 2 diabetes mellitus with hyperglycemia, without long-term current use of insulin ([facility]) Use to test blood sugar 2 times daily 100 each Active Blood Glucose Monitoring Suppl (FreeStyle Reseda Lite) w/Device kitIndications:Ty pe 2 diabetes mellitus with hyperglycemia, without long-term current use of insulin ([facility]) Use to test blood sugar 2 times daily 1 kit Active traZODone (Desyrel) 50 MG tabletIndications :Insomnia, unspecified type TAKE 1 TABLET BY MOUTH EVERY DAY AT BEDTIME 30 tablet 2 Active empagliflozin (Jardiance) 10 MGIndications:Typ e 2 diabetes mellitus with hyperglycemia, without long-term current use of insulin ([facility]) Take 1 tablet (10 mg) by mouth Once per day. 30 tablet 2025 Active gabapentin (Neurontin) 300 MG capsuleIndication s:Diabetic polyneuropathy associated with type 2 diabetes mellitus ([facility]) Take 1 capsule (300 mg) by mouth 3 times daily. 90 capsule 2025 Active diphenhydrAMINE (BENADryl) 12.5 mg split tablet Take 25 mg by mouth if needed at bedtime for sleep. Active omeprazole (PriLOSEC) [address] capsule Take 40 mg by mouth before breakfast. Active metFORMIN (Glucophage) 1000 MG tabletIndications :Type 2 diabetes mellitus with hyperglycemia, without long-term current use of insulin ([facility]) TAKE 1 TABLET TWICE DAILY IN THE MORNING AND IN THE EVENING WITH MEALS 180 tablet Active atorvastatin (Lipitor) 40 MG tabletIndications :Dyslipidemia TAKE 1 TABLET EVERY DAY 90 tablet Active Alcohol Swabs (Alcohol Prep) 70 % padsIndications:T ype 2 diabetes mellitus with hyperglycemia, without long-term current use of insulin ([facility]) USE DIRECTED TO TEST BLOOD SUGAR ONCE DAILY 100 each Active TRUEplus Lancets 33G miscIndications:T ype 2 diabetes mellitus with hyperglycemia, without long-term current use of insulin ([facility]) USE DIRECTED TO TEST BLOOD SUGAR ONCE DAILY 100 each Active Blood Glucose Monitoring Suppl (Accu-Chek Guide) w/Device kitIndications:Ty pe 2 diabetes mellitus with hyperglycemia, without long-term current use of insulin ([facility]) Use to monitor blood sugar at home once daily 1 kit Active glucose blood (Accu-Chek Guide Test) test stripIndications: Type 2 diabetes mellitus with hyperglycemia, without long-term current use of insulin ([facility]) Use to monitor blood sugar at home once daily 50 each 025 2025 Active sertraline (Zoloft) 25 MG tabletIndications :Mixed anxiety and depressive disorder Take 1 tablet (25 mg) by mouth 2 times daily. 60 tablet 2 025 2025 Active Trulicity 1.5 MG/0.5ML solution auto-injectorIndi cations:Type 2 diabetes mellitus with hyperglycemia, without long-term current use of insulin ([facility]) INJECT ONE PEN (=1.5MG) SUBCUTANEOUSLY ONCE A WEEK DIRECTED 2 mL Active acyclovir (Zovirax) 400 MG tablet Take 1 tablet (400 mg) by mouth 3 times daily for 5 days. 15 tablet 025 2024 Active Trulicity 1.5 MG/0.5ML solution auto-injectorIndi cations:Type 2 diabetes mellitus with hyperglycemia, without long-term current use of insulin ([facility]) INJECT ONE PEN (=1.5MG) SUBCUTANEOUSLY ONCE A WEEK DIRECTED 2 mL 025 2024 Discontinued Active Problems [...] organization. Date Type Department Care Team Description 12/23/2024 3:15 PM EDT Office Visit [address] [address] Melanie Dawkins FNP Sexually transmitted disease in male (Primary Dx) 12/23/2024 Travel 12/20/2024 Orders Only GENERIC EXTERNAL DATA DEPARTMENT Provider, Generic External Data 12/16/[address] [address] Jade Laguerre MD Type 2 diabetes mellitus with hyperglycemia, without long-term current use of insulin ([facility]) 12/15/2024 3:15 PM EDT Office Visit [address] [address] Jade Laguerre MD Hypersomnia (Primary Dx); Type 2 diabetes mellitus with hyperglycemia, without long-term current use of insulin ([facility]); Loud snoring; Apneic episode; Mixed anxiety and depressive disorder; Acute pain of left knee 12/15/2024 Travel 12/14/[address] [address] Jade Laguerre MD chart prep 12/09/[address] [address] Jade Laguerre MD Referral 11/26/2024 Orders Only [facility] External Provider, [facility] 11/16/2024 Refill [facility] MEDICINE [address] [place] [address] Alyssa Persaud RN Type 2 diabetes mellitus with hyperglycemia, without long-term current use of insulin ([facility]/HCC) 11/10/2024 Telephone [facility] MEDICINE [address] [place] [address] Jaed Laguerre MD Prior Authorization ([facility]: Trulicity 1.5 MG) 11/10/2024 Refill [facility] MEDICINE [address] [place] [address] Jade Laguerre MD Type 2 diabetes mellitus with hyperglycemia, without long-term current use of insulin ([facility]) 11/01/2024 Telephone [facility] MEDICINE [address] [place] [phone] Jade Laguerre MD Referral 10/19/2024 Telephone [facility] MEDICINE [address] [place] [phone] Jade Laguerre MD 10/18/2024 Refill [facility] MEDICINE [address] [place] [phone] Jaed Laguerre MD Type 2 diabetes mellitus with hyperglycemia, without long-term current use of insulin ([facility]); Dyslipidemia 10/15/2024 2:30 PM EDT Office Visit [facility] OPTOMETRY [address] [place], [place] [phone] Eleonora Gaviria, CECE Type 2 diabetes mellitus without ophthalmic manifestations ([facility]) (Primary Dx); Presbyopia 10/15/2024 9:45 AM EDT Office Visit [facility] MEDICINE [address] [place] [address] Jade Laguerre MD Type 2 diabetes mellitus with hyperglycemia, without long-term current use of insulin ([facility]); Diabetic polyneuropathy associated with type 2 diabetes mellitus ([facility]); Polyp of sigmoid colon, unspecified type; Mixed anxiety and depressive disorder 10/15/2024 Travel 10/14/2024 Telephone [facility] MEDICINE [address] [place] [address] Jade Laguerre MD Insurance 10/14/2024 Telephone [facility] MEDICINE [address] [place], [place] [phone] Amber SolomonchrisTEREZA weathers 10/13/2024 Refill [facility] MED[facility]INE [address] [place], [place] [phone] Jade Laguerre MD Insomnia, unspecified type; Type 2 diabetes mellitus with hyperglycemia, without long-term current use of insulin ([facility]) 10/11/2024 Telephone [facility] MEDICINE [address] [place], [place] [phone] Jade Laguerre MD No Show 10/07/2024 Telephone [facility] MEDICINE [address] [place], [place] [phone] Jade Laguerre MD chart prep 10/01/2024 Patient Outreach [facility] [address] [place], [place] [phone] Jade Laguerre MD Pre-visit Planning (SDOH was [...] Mass Index 31.41 12/23/2024 3:05 PM EDT Plan of Treatment Health Maintenance [...] Screening 10/15/2025 10/15/2024, 10/16/19 25 Tobacco Screening 12/23/2025 12/23/2024 Eye Exam 10/15/2026 10/15/2024, 10/05, 10/15/2024, Additional [...] WHOLE BLOOD Routine 12/20/2024 11:58 AM EDT POCT GLYCATED HEMOGLOBIN, TOTAL Routine 12/15/2024 3:28 PM EDT Type 2 diabetes mellitus with hyperglycemia, without long-term current use of insulin (CMS/HCC) POCT GLUCOSE Routine 12/15/2024 3:24 PM EDT Type 2 diabetes mellitus with hyperglycemia, without long-term current use of insulin (CMS/HCC) XR KNEE 4+ VIEWS LEFT Routine 11/26/2024 [...] Relevant to Health Maintenance Results * (ABNORMAL) Glucose, Whole Blood (12/20/2024 11:58 AM EDT) Glucose, Whole Blood 152(H) 60 - 115 mg/dL [facility] Comment:METER #: [id number] 12/20/2024 11:5 8 AM EDT 12/20/2024 12:14 PM EDT us Generic External Data Provider LAB BLOOD ORDERAB LES Final Result [facility] [address] [place] [phone] * (ABNORMAL) POCT Hgb A1c (12/15/2024 3:28 [...] specimen / Unknown 12/15/2024 3:24 PM EDT Jade Gonzalez MD POINT OF CARE TEST EN TER/EDIT ORDERABLES Final Result * XR Knee 4+ Views Left (11/26/2024 5:33 PM EDT) Anatomical Region Laterality Modality Lower Extremities, Knee Left Radiogra phic Imaging 11/26/2024 5:33 PM EDT Narrative 11/26/2024 5:35 PM EDT [address] [address] XRay Report Signed Patient: Carlos Meehan MR#: [id number] : 1975 Acct:[id number] Age/Sex: 49 / M ADM Date: 11/26/24 Loc: HO.ED Attending Dr: Ordering Physician: Gilberto Griffin Date of Service: 11/26/24 Procedure(s): XR knee LT 4V Accession Number(s): [id number] cc: [facility]; [...] 11/26/24 1734 DD/ 173 TD/TT: 11/26/24 173 Locks Tender: Procedure Note Donotuseinterpreter, Image - 11/26/[address] [address] XRay Report Signed Patient: Frieda MeehanR#: [id number] : 1975Acct:[id number] Age/Sex: 49 / MADM Date: 11/26/24 Loc: .ED Attending Dr: Ordering Physician: Gilberto Griffin Date of Service: 11/26/24 Procedure(s): XR knee LT 4V Accession Number(s): [id number] cc: [facility]; [...] by Joan Williamson MD in OV> 11/26/24 173 DD/ 32 TD/TT: 11/26/241732 Locks Tender: us [facility] External Provider IMG XR PROCEDURES Final Result * Albumin, Random Urine W/Creatinine (07/09/2024 12:20 PM EDT) Creatinine, Urine 143.39 mg/dL [facility] Microalbumin Urine 18.0 mg/L [facility] Microalbum Creatinine Ratio Ur 12.5 <30 ug/mg cr [facility] Comment:Albumin/Creatinine R atio Reference Ranges: Normal: < 30 ug/mg creatinine Microalbuminuria: 30 - 300 ug/mg creatinineClinical Albuminuria: > 300 ug/mg creatinine Urine (Urine, Random) 07/09/2024 12:20 PM EDT 07/09/2024 1:03 PM EDT Jade Gonzalez MD LAB URINE ORDERABLES Final Result [facility] [address] [place] [address] [phone] * (ABNORMAL) Lipid Panel, Standard (07/09/2024 11:20 AM EDT) Triglycerides 371(H) <150 mg/dL [facility] Comment:Desirable Triglyceri de: less than 150 mg/dLBorderline High Triglyceride 150-199 mg/dLHigh Triglyceride: 200-499 mg/dLVery High Triglyceride: greater than or equal to 5OO mg/dL Cholesterol 258(H) <200 mg/dL [facility] Comment:Desirable Cholestero l: less than 200 mg/dLBorderline High Cholesterol: 200-239 mg/dLHigh Cholesterol: greater than 239 mg/dL LDL Cholesterol Calculated 147(H) <100 mg/dL [facility] Comment:Desirable LDL: less than 100 mg/dLNear Optimal/Above Optimal LDL: 110- 129 mg/dLBorderline High LDL: 130-159 mg/dLHigh LDL: 160-189 mg/dLVery High LDL: greater than or equal to 190 mg/dL HDL Cholesterol 37(L) >40 mg/dL [facility] Comment:Desirable HDL: great er than 40 mg/dL Note: This HDL assay may give artificially low results in patients with liver disease. Blood Venous blood specimen / Unknown 07/09/2024 11:20 AM EDT 07/09/2024 1:21 PM EDT us Jade Gonzalez MD LAB BLOOD ORDERABLES Final Result Performing Organization Address [facility]/ZIP Co de Phone Number [facility] [address] [place] [phone] * Hepatitis C Antibody with Reflex to HCV, RNA, Quantitative, Real-Time PCR (04/14/2023 11:36 AM EST) Hepatitis C Antibody Nonreactive Nonreactive [facility] Comment:Antibodies to HCV no t detected; does not exclude early acuteHCV infection. Blood Venous blood specimen / Unknown 04/14/2023 11:36 AM EST 04/14/2023 1:34 PM EST us Jade Gonzalez MD LAB BLOOD ORDERABLES Final Result Performing Organization Address [facility] Co de Phone Number [facility] [address] [place] [phone] * HIV-1/2 Antigen and Antibodies, Fourth Generation, with Reflexes (04/14/2023 11:36 AM EST) HIV AB/AG Nonreactive Nonreactive [facility] Comment:HIV-1 p24 Ag and/or HIV-1/HIV-2 Ab not detected.A test result that is nonreactive does not exclude thepossibility of exposure to or infection with HIV-1 and/orHIV-2. Nonreactive results in this assay for individualswith prior exposure to HIV-1 and/or HIV-2 may be due toantigen and antibody levels that are below the limit ofdetection of this assay.The [employer] HIV Ag/Ab Combo assay result andsupplemental assay results should be interpreted inconjunction with the patient's clinical presentation,history and other laboratory results. If the results areinconsistent with clinical evidence, additional testing issuggested to confirm the result. Blood Venous blood specimen / Unknown 04/14/2023 11:36 AM EST 04/14/2023 1:34 PM EST us Jade Gonzalez MD LAB BLOOD ORDERABLES Final Result [facility] [address] [place] [address] [phone] from Last 3 Months or Most Recently Relevant to Health Maintenance Insurance [employer] Care Teams Safety Professional Relationship Specialty Start Date End Date Jade Laguerre MD [address] [place] [phone] PCP - General Internal Medicine 05/27/24
--- OUTSIDE RECORDS SUMMARY | 2024-12-23 17:17 | XMS_ITS | Encounter Summary ---
Author Organization [employer] Address [address] [facility] 7t [place] [address] Care Team Providers Care Connection Worker Name Role Phone Jade Laguerre MD Primary Care Provide r Encounter Details Date Type Department Care Team (Latest Contact Info) Description 12/23/2024 Travel Social History Tobacco Use Types Packs/Day Years Used Date Smoking Tobacco: Former Cigarettes Passive Smoke Exposure: Past Smokeless Tobacco: Never Comments:Quit smoking end of [...] documented as of this encounter Care Teams Connection Worker Relationship Specialty Start Date End Date Jade Laguerre MD [address] [place] [address] PCP - General Internal Medicine 05/27/24 documented as of this encounter
--- OUTSIDE RECORDS SUMMARY | 2024-12-23 17:17 | XMS_ITS | Clinical Summary ---
Author Organization [facility] Address [address] [place] [address] Phone Care Team Providers Care Supervisor [place] Name Role Phone Jade Laguerre MD Primary [...] PM EDT Office Visit Orthopedic Surgery - [place] [address] [phone] Roney Turcios DPM [address] [address] Health Maintenance Due Date Last Done Comments [...] 2024 04/08/2021 Influenza Vaccine (#1) 2024 04/08/2021 RSV Immunization Adult Patie nts (1 - 1-dose 75+ series) 2052 HIB Vaccines Aged Out No longer eligi [...] to complete this topic Insurance [place]ICA[place] - [place] [facility] Care Teams Supervisor [place]ir Relationship Specialty Start Date End Date Jade Laguerre MD [address] [place] [phone] PCP - General Internal Medicine 10/18/21
--- OUTSIDE RECORDS SUMMARY | 2024-12-23 17:17 | XMS_ITS | Encounter Summary ---
Author Organization [facility] Address [address] [facility] [address] [place] [address] Care Team Providers Care Mental Health Director Name Role Phone Jade Laguerre MD Primary Care Provide r Encounter Details Date Type Department Care Team ([facility] st Contact Info) Description 08/28/2024 Orders Only [facility] MEDICINE [address] [place], [place] [phone] Jade Laguerre MD [address] [place] [address] Social History Tobacco Use Types Packs/Day Years [...] with others, in a hotel, in a nursing home, living outside on the street, on [...] documented as of this encounter Care Teams Mental Health Director Relationship Specialty Start Date End Date Jade Laguerre MD [address] [place] [address] PCP - General Internal Medicine 05/27/24 documented as of this encounter
[2024-12-23 18:28] LABS: Alanine Aminotransferase 37 U/L (0-40); Albumin Level 4.7 g/dL (3.5-5.0); Alkaline Phosphatase 87 U/L (39-117); Anion Gap 11 (12-20); Aspartate Amino Transferase 27 U/L (5-37); Blood Urea Nitrogen 10 mg/dL (9-16); Calcium 9.4 mg/dL (8.4-10.2); Carbon Dioxide 28 mmol/L (22-29); Chloride 105 mmol/L (96-108); Cholesterol 165 mg/dL (<200); Estimated Glomerular Filt Rate > 60; HDL Cholesterol 33 mg/dL (>40); Potassium 4.1 mmol/L (3.3-5.1); Sodium 140 mmol/L (135-145); Total Protein 7.8 g/dL (6.5-8.0); Triglycerides 194 mg/dL (<150)
[2024-12-23 18:36] LABS: Prostate Specific Antigen 0.75 ng/mL (<0.05-4.0)
[2024-12-24 03:16] LABS: CT PCR Urine NOT DETECTED (Not Detect.); NG PCR Urine NOT DETECTED (Not Detect.)
[2024-12-24 09:06] LABS: HBsAGNum1 0.34 S/CO (0.00-0.99); HIV Num 1 0.06 S/CO (0.00-0.99); Hepatitis B Surface Antigen Negative (Negative); ~HepC Num1 0.09 S/CO (0.00-0.79); ~Hepatitis C Antibody Nonreactive (Nonreactive)
[2024-12-24 09:44] LABS: Syphilis Screen Nonreactive (Nonreactive)
== END 2024-12-23 16:14 | disposition home or self-care (01) ==
LOC: HO.HHCL 16:13
PROVIDERS: Nurse Practitioner Family; PCP Internal Medicine; Referring Provider Nurse Practitioner Family; Visit Provider Internal Medicine
DX: Z12.5 Encounter for screening for malignant neoplasm of prostate (principal); A64 Unspecified sexually transmitted disease; E11.65 Type 2 diabetes mellitus with hyperglycemia; R39.9 Unspecified symptoms and signs involving the genitourinary system
CPT/HCPCS: 36415; 80053; 80061; 82570; 84153; 86780; 86803; 87255; 87340; 87389; 87491; 87591